=== PATIENT | male | born 2005 | race Caucasian/White ===

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

== ENCOUNTER 2024-08-19 19:28 | Emergency (ER) | payer BC, SELFPAY ==
--- OUTSIDE RECORDS SUMMARY | 2024-08-19 19:30 | XMS_ITS | Clinical Summary ---
Author Organization [facility] Address [address] [place] [address] Care Team Providers Care Inventory Associate Name Role Phone Darvin Grajeda MD Primary Car e Provider Source Comments You are receiving this document as you are listed as the primary care provider,follow-up provider, or the patient has been referred to you for consultation.This is in compliance with the Medicare and[facility] EHR Incentive Program,which states Providers who transition their patient to another setting of careor provider of care or refers their patient to another provider of care shouldprovide summary care record for each transition of care or referral. INVOLTA Allergies Active Allergy Reactions Criticality Noted Date Comments [place] (Diagnostic) Other, see comments 016 Almonds food. behavioural Blue Dyes (Parenteral) Other, see comments 08/16/2014 Behavior Egg-Derived Products Other, see comments 2014 anger Beef-Derived Drug Products Other, see comments 08/16/2014 behavior Mustard Other, see comments 08/16/2014 behavior Medications Medication Sig Dispensed Refills Start Date End Date Status Continuous Blood Gluc Sensor (DEXCOM G6 SENSOR) MISC U UTD FOR CONTINUOUS GLUCOSE MONITORING. CHANGE Q 10 DAYS 3 03/20/2019 Active Continuous Blood Gluc Transmit (DEXCOM G6 TRANSMITTER) MISC U UTD FOR CONTINUOUS GLUCOSE MONITORING. CHANGE Q 90 DAYS 3 03/20/2019 Active GLUCAGON EMERGENCY 1 MG Kit 03/14/2019 Active ACCU-CHEK GUIDE test strip TEST 8 TIMES D 11 03/18/2019 Active LANTUS SOLOSTAR 100 UNIT/ML pen INJECT 13 UNITS SUBCUTANEOUSLY D OR UTD 11 03/17/2019 Active HUMALOG KWIKPEN 100 UNIT/ML injection penIndications:Ty pe 1 Diabetes Mellitus 90 units per day via insulin pump Indications: Insulin-Dependent Diabetes 11 03/17/2019 Active TRUEPLUS PEN NEEDLES 32G X 4 MM 03/14/2019 Active ACCU-CHEK FASTCLIX lancets TEST 8 TIMES D 11 03/17/2019 Acti ve triamcinolone (KENALOG) 0.1 % lotion Apply topically two times a day. 60 mL 11 03/31/2019 Active guanFACINE 2 MG TB24 24 hour release tablet Take 2 mg by mouth daily. 11/22/2020 Active Insulin Aspart FlexPen 100 UNIT/ML SOPN INJECT 110 UNITS SUBCUTANEOUS EVERY DAY FOR CARB COVERAGE AND CORRECTION 03/30/2023 Active sertraline (ZOLOFT) 50 MG tabletIndications :Anxiety disorder, unspecified type (HRC),Social anxiety disorder (HRC),Oppositiona l defiant disorder TAKE 2 TABLETS(100 MG) BY MOUTH DAILY 180 Tablet 3 06/28/2023 Active cyclobenzaprine (FLEXERIL) 10 MG tablet Take 1 Tablet (10 mg) by mouth three times a day as needed for Muscle Spasms for up to 180 doses. 30 Tablet 5 06/04/2024 Active Active Problems Problem Noted Date Diagnosed Date Lumbar pain 06/12/2024 Pain in both lower extremities 06/12/2024 Dermatitis 04/26/2023 Overview (04/26/2023): Overview: Created by Conversion Type 1 diabetes mellitus without complication Screening for eye condition 04/16/2015 Attention deficit hyperactiv ity disorder, combined type, moderate 11/09/2014 Overview (05/11/2016): Patient takes Methylphenidate HCl 10 mg 1 tab twice a day . Qty dispensed 60 monthly. Should be seen every 6 months for follow up. 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 Overview (04/04/2017): unspecified anxiety disorder Social anxiety disorder 11/09/2014 Separation anxiety disorder 11/09/2014 Oppositional defiant disorder 11/09/2014 Encounters Date Type Department Care Team Description 07/08/2024 Telephone [facility] [address] [place] [address] Darvin Grajeda MD QUESTIONS, GENERAL 07/07/2024 Telephone Physical Therapy at [address] [phone] Will Robertson, PT Other 07/07/2024 Telephone Physical Therapy at [address] [phone] Mark Workman, PT No Show 07/03/2024 1:00 PM ERGONOMIC SPECIALIST Ancillary Procedure MRI at [address] [address] Darvin Grajeda MD 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) 06/25/2024 Telephone Physical Therapy at [address] [address] Mark Workman, PT No Show 06/23/2024 Telephone Physical Therapy at [address] [phone] Irina Lewis, [employer] No Show 06/20/2024 1:30 PM ERGONOMIC SPECIALIST Therapy Physical Therapy at [address] [phone] Will Robertson, PT Lumbar pain (Primary Dx); Pain in both lower extremities 06/20/2024 Telephone [facility] [address] [place] [address] Darvin Grajeda MD REFERRAL REQUEST 06/20/2024 Telephone Physical Therapy at [address] [phone] Will Robertson, PT Post Visit Follow Up Phone Call 06/18/2024 10:30 AM ERGONOMIC SPECIALIST Therapy Physical Therapy at [address] [phone] Mark Workman, PT Lumbar pain (Primary Dx); Pain in both lower extremities 06/12/2024 11:00 AM CDT Therapy Physical Therapy at [facility] Orthopedic [facility] [address] [place] [address] Will Robertson, PT Lumbar pain (Primary Dx); Pain in both lower extremities 06/04/2024 1:45 PM CDT Office Visit [facility] [address] [place] [address] Darvin Grajeda MD 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) (Primary Dx) from Last 3 Months Immunizations Name Administration Dates Next Due Meningococcal ACWY-TT (Menquadfi) 05/08/2022 Bexsero (Meningococcal Group B Vaccine) 02/27/2023 DTaP 03/07/2010, 9,02/07/2006,05/05,03/10/2005,01/13/2005 [id number] (Pediarix) 12/03/2008,04/14,03/10/2005,01/13 Flu Vac (3+ yrs) 07/28/2005,05/26/2005 Flu Vac Preserv Free (3+yrs) 07/28/2005,05/26/20 05 [id number] 07/05/2009 HepA Adult (19+ yrs) 03/07/2010,12/03/2008 HepB Ped/Adol (0-18 yrs) 12/03/2008,04/14,03/10/2005,01/13 Hib (ActHIB) 02/07/2006,03/10/2005,01/13/2005 Hib (PedvaxHIB) 02/07/2006,03/10/2005,01/13/2005 IPV (Polio) 12/03/2008, 5,03/10/2005,01/13 Influenza IIV4 (Quadrivalent ) 0.5mL (18758) 07/05/2009 MCV4 (Menactra) 03/01/2016 MCV4 Menveo 2m.+ (two vial) 03/01/2016 MMR 03/29/2010,11/01/2005 PCV13 (Prevnar) 11/01/2005, 5,03/10/2005,01/13 Pfizer Monovalent 12+ Purple Top 04/11/2021,07 Pneumococcal 7, PED 11/01/2005, 5,03/10/2005,01/13 Tdap 03/01/2016 Varicella 03/29/2010,11/01/2005 Family History Medical History Relation Name Comments Glaucoma Maternal Grandfather age 55 Amblyopia/Strabismus Negative Family History Blindness Negative Family History Relation Name Status Comments Maternal Grandfather Social History Tobacco Use Types Packs/Day Years Used Date Smoking Tobacco: Never Smokeless Tobacco: Never Tobacco Cessation:Counseling Given: Not Answered Alcohol Use Standard Drinks/Week Comments No 0 (1 standard drink = 0.6 oz pur e alcohol) PHQ-2 Answer Date Recorded PHQ-2 Score 2 06/04/2024 Sex and Gender Information Value Date Recorded Sex Assigned at Not on file Gender Identity Not on file Sexual Orientation Not on file Last Filed Vital Signs Vital Sign Reading Time Taken Comments Blood Pressure 115/67 06/04/2024 1:41 PM CDT Pulse 67 06/04/2024 1:41 PM CDT Temperature 36.9 C (98.5 F) 09/20/2021 9:48 AM ERGONOMIC SPECIALIST Respiratory Rate 22 03/13/2019 1:04 PM CDT Oxygen Saturation 99% 07/19/2016 10:10 AM ERGONOMIC SPECIALIST Inhaled Oxygen Concentration - - Weight 70.3 kg (155 lb) 06/04/2024 1:41 PM CDT Height 165.1 cm (5' 5) 09/13/2021 9:46 AM ERGONOMIC SPECIALIST Body Mass Index - - Plan of Treatment Health Maintenance Due Date Last Done Comments Diabetes: Eye Exam 2004 Diabetes: Foot Exam 2004 Diabetes: Urine Microalbumin 2004 Hep C Screening (Preventive Services) 2004 Pneumococcal (1 - PPSV23 or PCV20) 2010 11/01/2005, 11/01/2005, 05/05/2005, Additional history exists HPV Vaccine (1 - Male 3-dose series) 11/01/2019 HIV Screening (Preventive Services) 2020 Adult Preventive Visit 2022 9, 02/26/2017, 03/01/2016 COVID-19 Vaccine (3 2023-2 5 season) 2024 04/11/2021, 03/11/2021 Influenza (#1) 2024 07/05/2009, 07/13, 07/28/2005, Additional history exists Diabetes: HGBA1C 09/05/2024 03/05/2024, 09/03/2020 Diabetes: Creatinine 03/05/2025 03/05/2024, 04/26/2023, 03/13/2019 Diabetes: Lipid Panel 09/03/2025 09/03/2020 DTaP/Tdap/Td (7 - Tdap) 03/01/2026 03/01/20, 03/07/2010, 12/03/2008, Additional history exists Zoster/Shingles (1 of 2) 2054 Hib Completed 02/07/2006, 01/12, 03/10/2005, Additional history exists HepB Completed 12/03/2008, 11/12, 05/05/2005, Additional history exists IPV (Polio) Completed 12/03/2008, 11/12, 05/05/2005, Additional history exists HepA Completed 03/07/2010, 12/03/2008 Varicella Completed 03/29/2010, 11/01/2005 MCV4 Completed 05/08/2022, 02/11, 03/01/2016 Procedures Procedure Name Priority Date/Time Associated Diagnosis Comments MR LUMBAR SPINE WO IV CONT Routine 07/03/2024 1:04 PM ERGONOMIC SPECIALIST 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) BASIC METABOLIC PANEL Routine 03/05/2024 8:55 AM CDT Type 1 diabetes mellitus without complication (HRC) HGB A1C Routine 03/05/2024 8:55 AM CDT Type 1 diabetes mellitus without complication (HRC) LIPID PANEL & DIRECT LDL (IF NEEDED) Routine 09/03/2020 8:22 AM ERGONOMIC SPECIALIST Type I (juvenile type) diabetes mellitus without mention of complication, not stated as uncontrolled ([facility]) from Last 3 Months or Most Recently Relevant to Health Maintenance Results * MR Lumbar Spine WO IV Cont (07/03/2024 1:04 PM ERGONOMIC SPECIALIST) Anatomical Region Laterality Modality Spine, L-Spine, Skeletal, MSK Ma gnetic Resonance 07/03/2024 1:04 PM ERGONOMIC SPECIALIST Narrative 07/04/2024 9:00 AM ERGONOMIC SPECIALIST EXAM: MR LUMBAR SPINE WO IV CONT LOCATION: [facility] DATE: 07/03/2024 INDICATION: Back pain, worse after pt no improvement, Lumbago with sciatica, left side (HRC), Other chronic pain COMPARISON: None. TECHNIQUE: Routine Lumbar Spine MRI without IV contrast. FINDINGS: Nomenclature is based on 5 lumbar type vertebral bodies. Satisfactory lumbar vertebral body height and alignment. Interspace narrowing L5-S1. No marrow or ligamentous edema. Normal distal spinal cord and cauda equina with conus medullaris at L2. Mild leftward lumbar curve. No extraspinal abnormality. No pelvic mass, adenopathy or free fluid. T12-L1: Normal disc height and signal. No herniation. Normal facets. No spinal canal or neural foraminal stenosis. L1-L2: Normal disc height and signal. No herniation. Normal facets. No spinal canal or neural foraminal stenosis. L2-L3: Normal disc height and signal. No herniation. Normal facets. No spinal canal or neural foraminal stenosis. L3-L4: Normal disc height and signal. No herniation. Normal facets. No spinal canal or neural foraminal stenosis. L4-L5: Normal disc height and signal. No herniation. Normal facets. No spinal canal or neural foraminal stenosis. L5-S1: Mild to moderate loss of disc height. Annular bulging asymmetric to the right with a superimposed shallow broad-based right paracentral disc protrusion. Slight contact suggested traversing right S1 nerve root series 10 image 37 could correlate to right S1 radiculopathy. There is no spinal stenosis or lateral recess stenosis. Mild right foraminal narrowing inferiorly. No left neural foraminal stenosis. IMPRESSION: 1. Interspace narrowing at L5-S1 with a shallow morphology broad-based right paracentral disc protrusion. Slight contact without displacement suggested traversing right S1 nerve root series 10 image 37 could correlate to right S1 radiculopathy. Mild right L5-S1 foraminal compromise inferiorly. No additional spinal stenosis or foraminal narrowing. Satisfactory lumbar height and alignment overall. Procedure Note Josemanuel Em MD - 07/04/2024 EXAM: MR LUMBAR SPINE WO IV CONT LOCATION: [facility] DATE: 07/03/2024 INDICATION: Back pain, worse after pt no improvement, Lumbago withsciatica, left side (HRC), Other chronic pain COMPARISON: None. TECHNIQUE: Routine Lumbar Spine MRI without IV contrast. FINDINGS: Nomenclature is based on 5 lumbar type vertebral bodies. Satisfactorylumbar vertebral body height and alignment. Interspace narrowing L5-S1. Nomarrow or ligamentous edema. Normal distal spinal cord and cauda equinawith conus medullaris at L2. Mild leftward lumbar curve. No extraspinalabnormality. No pelvic mass, adenopathy or free fluid. T12-L1: Normal disc height and signal. No herniation. Normal facets. Nospinal canal or neural foraminal stenosis. L1-L2: Normal disc height and signal. No herniation. Normal facets. Nospinal canal or neural foraminal stenosis. L2-L3: Normal disc height and signal. No herniation. Normal facets. Nospinal canal or neural foraminal stenosis. L3-L4: Normal disc height and signal. No herniation. Normal facets. Nospinal canal or neural foraminal stenosis. L4-L5: Normal disc height and signal. No herniation. Normal facets. Nospinal canal or neural foraminal stenosis. L5-S1: Mild to moderate loss of disc height. Annular bulging asymmetric tothe right with a superimposed shallow broad-based right paracentral discprotrusion. Slight contact suggested traversing right S1 nerve root [id number] image 37 could correlate to right S1 radiculopathy. There is no spinalstenosis or lateral recess stenosis. Mild right foraminal narrowinginferiorly. No left neural foraminal stenosis. IMPRESSION: 1. Interspace narrowing at L5-S1 with a shallow morphology broad-basedright paracentral disc protrusion. Slight contact without displacementsuggested traversing right S1 nerve root series 10 image 37 couldcorrelate to right S1 radiculopathy. Mild right L5-S1 foraminal compromiseinferiorly. No additional spinal stenosis or foraminal narrowing.Satisfactory lumbar height and alignment overall. Darvin Grajeda MD RAD MRI * (ABNORMAL) BMP (03/05/2024 8:55 AM CDT) Sodium 141 136 - 145 mmol/L 03/05/2024 11:48 AM [facility] Potassium 3.5 3.5 - 5.1 mmol/L 03/05/2024 11:48 AM [facility] Chloride 106 98 - 109 mmol/L 03/05/2024 11:48 AM T [facility] CO2 23 20 - 29 mmol/L 03/05/2024 11:48 AM T [facility] Anion Gap 12 6 - 16 mmol/L 03/05/2024 11:48 AM T [facility] Calcium 9.4 8.4 - 10.4 mg/dL 03/05/2024 11:48 AM T [facility] BUN 12 7 - 26 mg/dL 03/05/2024 11:48 AM T [facility] Creatinine 0.67(L) 0.73 - 1.18 mg/dL 03/05/2024 11:48 AM T [facility] Glucose 233(H) 70 - 100 mg/dL 03/05/2024 11:48 AM [facility] Comment:The given reference range is for the fasting state. Non-fasting reference range for glucose is 70 - 180 mg/dL. GFR, Estimated >60 >60 mL/min/1. 73m2 03/05/2024 11:48 AM T [facility] Hours Fasting 0.0 8 - 12 Hours 03/05/2024 11:48 AM [facility] Blood Venipuncture / Unknown 03/05/2024 8:55 AM CDT 03/05/2024 8:55 AM CDT Darvin Grajeda MD LAB_ 1 [facility] [address] [address], [facility] [[email or web address]] * (ABNORMAL) Hgb A1C (03/05/2024 8:55 AM CDT) Hemoglobin A1C 7.0(H) <=5.6 % 03/05/2024 12:10 PM CDT [facility] Estimated Average Glucose (Calc) 154 < 117 mg/dL 03/05/2024 12:10 PM CDT [facility] Comment:Estimated average gl ucose (eAG) converts A1c into glucose units (mg/dL) and estimates average glucose over the past approximately 3 months. The eAG reference interval (<117 mg/dL) corresponds to an A1c of <5.7%. Blood Venipuncture / Unknown 03/05/2024 8:55 AM CDT 03/05/2024 8:55 AM CDT Narrative [facility] - 03/05/2024 12:10 PM CDT For patients not previously diagnosed with diabetes: 5.7-6.4%: Increased risk for diabetes 6.5% and greater: Diagnostic for diabetes For patients diagnosed with diabetes: <8.0%: Goal of therapy for ages 18-75 Clinicians may recommend a higher or lower goal for specific individuals. Darvin Grajeda MD LAB_ 1 [facility] [address] [address], [facility] [[email or web address]] * (ABNORMAL) Lipid Panel and Direct LDL(If Needed) (09/03/2020 8:22 AM ERGONOMIC SPECIALIST) Cholesterol 235(H) 0 - 199 mg/dL 09/03/2020 9:00 AM [facility] Triglyceride 162(H) <=149 mg/dL 09/03/2020 9:00 AM [facility] HDL Cholesterol 41 >=40 mg/dL 9:00 AM [facility] LDL, Calculated 162(H) <130 mg/dL 9:00 AM [facility] Non HDL Chol, Calculated 194(H) <=144 mg/dL 09/03/2020 9:00 AM [facility] Cholesterol/HDL Ratio 5.7 09/03/2020 9:00 AM [facility] Hours Fasting 14 09/03/2020 9:00 AM [facility] Blood Lab OP Venipunct ure / Unknown 09/03/2020 8:22 AM ERGONOMIC SPECIALIST 09/03/2020 8:26 AM ERGONOMIC SPECIALIST Darvin Grajeda MD LAB_ [address] [address], [facility] [[email or web address]] [phone] from Last 3 Months or Most Recently Relevant to Health Maintenance Care Teams Inventory Associate Relationship Specialty Start Date End Date Darvin Grajeda MD [address] [place] [address] PCP - General Family Practice 06/15/14
--- OUTSIDE RECORDS SUMMARY | 2024-08-19 19:30 | XMS_ITS | Encounter Summary ---
Author Organization [facility] Address [address] [place] [address] Care Team Providers Care Instructional Leader Name Role Phone Darvin Grajeda MD Primary Car e Provider Reason for Visit * Reason Comments Other Encounter Details Date Type Department Care Team (Late st Contact Info) Description 07/07/2024 Telephone Physical Therapy at [facility] [address] [place] [address] Will Robertson, PT [address] [place] [address] Other Social History Tobacco Use Types Packs/Day Years Used Date Smoking Tobacco: Never Smokeless Tobacco: Never Alcohol Use Standard Drinks/Week Comments No 0 (1 standard drink = 0.6 oz pur e alcohol) PHQ-2 Answer Date Recorded PHQ-2 Score 2 06/04/2024 Sex and Gender Information Value Date Recorded Sex Assigned at Not on file Gender Identity Not on file Sexual Orientation Not on file documented as of this encounter Nursing Notes * Will Robertson, PT - 07/07/2024 1:52 PM CST PT spoke with pt and his mother about the PT POC. PT's mother states that pt had a major medical event recently. PT reviewed pt's recent lumbar imaging and instructed pt and his mother that pt can still benefit from physical therapy. PT instructed pt and pt's mother that pt can schedule a few weeks more of PT appointments. Pt/his mother will call the appointment scheduling line to schedule more appointments once they know their schedule. Will Robertson, PT 07/07/2024, 1:53 PM [facility] SPECIALIST documented in this encounter Plan of Treatment Not on file documented as of this encounter Visit Diagnoses Not on filedocumented in this encounter Care Teams Instructional Leader Relationship Specialty Start Date End Date Darvin Grajeda MD [address] [place] [address] PCP - General Family Practice 06/15/14 documented as of this encounter
--- OUTSIDE RECORDS SUMMARY | 2024-08-19 19:30 | XMS_ITS | Encounter Summary ---
Author Organization [facility] Address [address] [place] [address] Care Team Providers Care Director Of Industrial Relations Name Role Phone Darvin Grajeda MD Primary Car e Provider Reason for Visit * Reason Comments QUESTIONS, GENERAL Encounter Details Date Type Department Care Team (Late st Contact Info) Description 07/08/2024 Telephone [facility] [address] [place], [place] [phone] Darvin Grajeda MD [address] [employer] [place], [place] [phone] QUESTIONS, GENERAL Social History Tobacco Use Types Packs/Day Years [...] as of this encounter Nursing Notes * Andreina Rees - 07/08/2024 12:04 PM CST Other Questions/Concerns/FYI Is this a symptom? No What is your question or concern? Pt mom stated, the received the results of the MRI and would like to know if provider want him to go to PT or have an injection. Also, the PT provider Will stated, that he is will to continue working with him. Have you recently been seen for this? Yes: 1.5 month ago Preferred communication method: MyChart Is there anything else I can help you with today? No [employer] documented in this encounter Plan of Treatment Not on file documented as of this encounter Visit Diagnoses Not on filedocumented in this encounter Care Teams Director Of Industrial Relations Relationship Specialty Start Date End Date Darvin Grajeda MD [address] [place] [address] PCP - General Family Practice 06/15/14 documented as of this encounter
--- OUTSIDE RECORDS SUMMARY | 2024-08-19 19:30 | XMS_ITS | Encounter Summary ---
Author Organization [facility] Address [address] [place] [address] Care Team Providers Care Counter Clerk Name Role Phone Darvin Grajeda MD Primary Car e Provider Reason for Visit * Reason Comments No Show Encounter Details Date Type Department Care Team (Late st Contact Info) Description 07/07/2024 Telephone Physical Therapy at [facility] [address] [place] [address] Mark Workman, PT [address] [place] [address] No Show Social History Tobacco Use Types Packs/Day Years [...] as of this encounter Nursing Notes * Mark Workman, PT - 07/07/2024 12:26 PM CST I???m reaching out because you missed your 3rd therapy appointment without notifying us. I am discontinuing your therapy at this time. Communication Outcome: Message sent via online account [employer] documented in this encounter Plan of Treatment Not on file documented as of this encounter Visit Diagnoses Not on filedocumented in this encounter Care Teams Counter Clerk Relationship Specialty Start Date End Date Darvin Grajeda MD [address] [place] [address] PCP - General Family Practice 06/15/14 documented as of this encounter
--- OUTSIDE RECORDS SUMMARY | 2024-08-19 19:30 | XMS_ITS | Clinical Summary ---
Author Organization [facility] Address [place], [place] [address] Care Team Providers Care Appeals Representative Name Role Phone Clinic, No Pcp Or Primary Care Provider Unavaila ble Allergies Active Allergy Reactions Criticality Noted Date Comments [place] Other - Describe In Comment Field Unknown 07/19/2016 Almonds food. behavioral Beef Derived (Bovine) Other - Describe In Comment Field Unknown 08/16/2014 behavior Blue Dye Other - Describe In Comment Field Unknown 08/16/2014 Behavior Egg Derived Other - Describe In Comment Field Unknown 08/16/2014 anger Mustard Seed Other - Describe In Comment Field Unknown 08/16/2014 behavior Medications Dexcom G6 Sensor for continuous blood glucose monitor (CGM) CHANGE SENSOR EVERY 10 DAYS 3 Active Dexcom G6 Transmitter for continuous blood glucose monitor (CGM) CHANGE TRANSMITTER EVERY 90 DAYS 3 Active insulin aspart, U-100, (NOVOLOG FLEXPEN) 100 unit/mL (3 mL) pen INJECT 110 UNITS 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 Active cyclobenzaprine (FLEXERIL) 10 mg tabletIndicatio ns:Lumbar back pain Take 1 Tablet (10 mg) by mouth three times daily. 20 Tablet 4 Active methylPREDNISol one (MEDROL DOSEPAK) 4 mg tabletIndicatio ns:Lumbar back pain Take by mouth as instructed per packaging. 21 Tablet 4 Active Active Problems No known active problems Encounters Date Type Department Care Team Description 07/08/2024 1:30 PM POLICE SERGEANT Office Visit [facility] [address] [place] [address] Iveth Prince [facility] Visit 07/08/2024 Travel from Last 3 Months Family History Medical History Relation Name Comments Unknown Father Unknown Mother Relation Name Status Comments Father Mother Social History Tobacco Use Types Packs/Day Years Used Date Smoking Tobacco: Never Smokeless Tobacco: Never Tobacco Cessation:Counseling Given: Not Answered Alcohol Use Standard Drinks/Week Comments Never 0 (1 standard drink = 0.6 oz pur e alcohol) Sex and Gender Information Value Date Recorded Sex Assigned at Not on file Legal Sex Male 9:24 PM CDT Gender Identity Not on file Sexual Orientation Not on file Obstetrics History Last Filed Vital Signs Vital Sign Reading Time Taken Comments Blood Pressure 126/84 05/14/2024 10:02 PM CDT Pulse 80 05/14/2024 10:02 PM CDT Temperature 36.6 C (97.8 F) 05/14/2024 10:02 PM CDT Respiratory Rate 16 05/14/2024 10:02 PM CDT Oxygen Saturation 97% 05/14/2024 10:02 PM CDT Inhaled Oxygen Concentration - - Weight 68 kg (150 lb) 05/14/2024 10:02 PM CDT Height 167.6 cm (5' 6) 05/14/2024 10:02 PM CDT Body Mass Index 24.21 05/14/2024 10:02 PM CDT Plan of Treatment Upcoming Encounters Date Type Department Care Team (Late st Contact Info) Description 09/01/2024 1:00 PM POLICE SERGEANT Telemedicine [facility] [address] [address] Yris Gray, PhD, LP [address] [place] [address] Health Maintenance Due Date Last Done Comments Well Child Check for age 3-20 10/03/2007 Tdap 11/01/2015 Depression screening for age 12+ 2016 HIV for age 15-65 11/01/2019 HPV series for age 9-26 (1 - Male 3-dose series) 11/01/2019 BMI (ht and wt on same day) for age 18+ 2022 Hepatitis C screening for ag e 18-79 2022 COVID-19 vaccine series ( season) 2024 04/11/2021, 03/11/2021 Influenza for age 9-49 04/13/2024 Meningococcal series for age 11-21 Aged Out No longer eligible b ased on patient's age to complete this topic Pneumococcal series for age 6-49 Aged Out No longer eligible b ased on patient's age to complete this topic Insurance [facility] [place] [address] [facility] REFERRAL Member Subscriber Plan / Payer (Ef fective 2024-Present) Name:Osei Hartman Member ID:[id number] Relation to Subscriber:Self Name:Osei Hartman Subscriber ID:[id number] Payer ID:Not on file Group ID:Not on file Type:Not on file Address: FOR [employer] OF NON-[place]-ITS Care Teams Appeals Representative Relationship Specialty Start Date End Date Clinic, No Pcp Or . PCP - General 05/14/24
--- OUTSIDE RECORDS SUMMARY | 2024-08-19 19:31 | XMS_ITS | Encounter Summary ---
Author Organization [facility] Address [address] [place] [address] Care Team Providers Care Portfolio Accountant Name Role Phone Darvin Grajeda MD Primary Car e Provider Encounter Details Date Type Department Care Team (Late st Contact Info) Description 06/17/2014 Correspondence None No Primary/Referring, Phy EQUIPMENT SPEED WINDER TICKET Social History Tobacco Use Types Packs/Day Years [...] Time COVID19 07/06/2020 07/06/2020 07/27/2020 3:17 AM EXCEPTIONAL CHILDREN TEACHER R/O COVID19 06/13/2021 06/13/2021 06/13/2021 9:27 PM CDT documented as of this encounter Care Teams Portfolio Accountant Relationship Specialty Start Date End Date Darvin Grajeda MD [address] [place] [address] PCP - General Family Practice 06/15/14 documented as of this encounter
--- OUTSIDE RECORDS SUMMARY | 2024-08-19 19:31 | XMS_ITS | Encounter Summary ---
Author Organization [facility] Address [address] [place] [address] Care Team Providers Care Assembler Corncob Pipes Name Role Phone Darvin Grajeda MD Primary Car e Provider Encounter Details Date Type Department Care Team (Late st Contact Info) Description 02/07/2013 Scanned History External to Transferred Record, Provider [facility] Social History Tobacco Use Types Packs/Day Years Used Date Smoking Tobacco: Never Assessed Sex and Gender Information Value Date Recorded Sex Assigned at Not on file Gender Identity Not on file Sexual Orientation Not on file documented as of this encounter Progress Notes * Transferred Record, Provider - 02/07/2013 12:00 AM CDT GING JEWELER documented in this encounter Plan of Treatment Not on file documented as of this encounter Visit Diagnoses Not on filedocumented in this encounter Additional Health Concerns Infection Onset Date Last Indicated Resolved Time COVID19 07/06/2020 07/06/2020 07/27/2020 3:17 AM MANAGING JEWELER R/O COVID19 06/13/2021 06/13/2021 06/13/2021 9:27 PM CDT documented as of this encounter Care Teams Assembler Corncob Pipes Relationship Specialty Start Date End Date Darvin Grajeda MD [address] [facility] [place] [address] PCP - General Family Practice 06/15/14 documented as of this encounter
--- OUTSIDE RECORDS SUMMARY | 2024-08-19 19:31 | XMS_ITS | Encounter Summary ---
Author Organization [facility] Address [address] [place] [address] Care Team Providers Care Offset Press Operator Helper Name Role Phone Darvin Grajeda MD Primary Car e Provider Encounter Details Date Type Department Care Team (Late st Contact Info) Description 02/26/2017 Correspondence [facility] [address] [place] [address] Darvin Grajeda MD [address] [place] [address] LIBERTAD HYMAN AUTH AND MEDICAL RECORD Social History Tobacco Use Types Packs/Day Years [...] Time COVID19 07/06/2020 07/06/2020 07/27/2020 3:17 AM AIRLINE LOUNGE RECEPTIONIST R/O COVID19 06/13/2021 06/13/2021 06/13/2021 9:27 PM CDT documented as of this encounter Care Teams Offset Press Operator Helper Relationship Specialty Start Date End Date Darvin Grajeda MD [address] [place] [address] PCP - General Family Practice 06/15/14 documented as of this encounter
--- OUTSIDE RECORDS SUMMARY | 2024-08-19 19:31 | XMS_ITS ---
Author Organization [facility] Address [address] [place] [address] Care Team Providers Care Gasoline Service Attendant Name Role Phone Unavailable Unavailable Unavailable Surgery Details Not on file Complications Check Surgery Details section. Procedure Estimated Blood Loss Check Surgery Details section. Procedure Findings Check Surgery Details section. Procedure Specimens Taken Check Surgery Details section.
--- OUTSIDE RECORDS SUMMARY | 2024-08-19 19:31 | XMS_ITS | Encounter Summary ---
Author Organization [facility] Address [address] [place] [address] Care Team Providers Care Chief Procurement Officer Name Role Phone Darvin Grajeda MD Primary Car e Provider Encounter Details Date Type Department Care Team (Late st Contact Info) Description 06/17/2014 Correspondence None No Primary/Referring, Phy DME INSTRUCTION DELIVERY Social History Tobacco Use Types Packs/Day Years [...] Time COVID19 07/06/2020 07/06/2020 07/27/2020 3:17 AM MENTAL RETARDATION AIDE R/O COVID19 06/13/2021 06/13/2021 06/13/2021 9:27 PM CDT documented as of this encounter Care Teams Chief Procurement Officer Relationship Specialty Start Date End Date Darvin Grajeda MD [address] [place] [address] PCP - General Family Practice 06/15/14 documented as of this encounter
--- OUTSIDE RECORDS SUMMARY | 2024-08-19 19:31 | XMS_ITS | Referral Summary ---
Author Organization [facility] Address [address] [place] [address] Care Team Providers Care Chief Program Officer Name Role Phone Unavailable Primary Care Provider Unavailabl e Source Comments Patient records contain information from all sites at [facility]. For routine questions regarding patient records, call [phone] during business hours, M-F 8:00 AM - 5:00 PM Central Time. Record requests for emergency care only can be directed to [phone] at any time.[facility] Allergies No known active allergies Medications glucagon 1 mg injection 03/14/2019 Active Active Problems No known active problems Social History Tobacco Use Types Packs/Day Years Used Date Smoking Tobacco: Never Smokeless Tobacco: Never Tobacco Cessation:Counseling Given: Not Answered Nutrition Answer Date Recorded Nutrition: EVOO Fat Source Unknown 10/18 Nutrition: Servings of Fruits/Vegetables per Day Not on file 10/19/2023 Dental Answer Date Recorded Dental: Regular Dentist Unknown 10/19/19 Sex and Gender Information Value Date Recorded Sex Assigned at Not on file Legal Sex Male 11:46 AM BACK JOINER Gender Identity Not on file Sexual Orientation Not on file Last Filed Vital Signs Vital Sign Reading Time Taken Comments Blood Pressure 108/74 10/24/2023 11:13 AM CDT Pulse 64 10/24/2023 11:13 AM CDT Temperature 36.4 C (97.5 F) 10/24/2023 11:13 AM CDT Respiratory Rate 18 10/24/2023 11:1 3 AM CDT Oxygen Saturation - - Inhaled Oxygen Concentration - - Weight 78.8 kg (173 lb 11.6 oz) 024 11:13 AM CDT Height 169 cm (5' 6.54) 10/24/2023 11: 13 AM CDT Body Mass Index 27.59 10/24/2023 11:13 AM CDT Body Mass Index Percentile 90.18% 10/23 11:13 AM CDT Growth Chart: CDC (Boys, 2-2 0 Years) Plan of Treatment Not on file
--- OUTSIDE RECORDS SUMMARY | 2024-08-19 19:31 | XMS_ITS | Encounter Summary ---
Author Organization [facility] Address [address] [place] [address] Care Team Providers Care Turning Sander Operator Name Role Phone Darvin Grajeda MD Primary Car e Provider Encounter Details Date Type Department Care Team (Late st Contact Info) Description 04/28/2014 Scanned History External to [facility], Provider [facility] Social History Tobacco Use Types Packs/Day Years [...] Time COVID19 07/06/2020 07/06/2020 07/27/2020 3:17 AM MANAGER OUTREACH R/O COVID19 06/13/2021 06/13/2021 06/13/2021 9:27 PM CDT documented as of this encounter Care Teams Turning Sander Operator Relationship Specialty Start Date End Date Darvin Grajeda MD [address] [place] [address] PCP - General Family Practice 06/15/14 documented as of this encounter
--- OUTSIDE RECORDS SUMMARY | 2024-08-19 19:31 | XMS_ITS | Encounter Summary ---
Author Organization [facility] Address [address] [place] [address] Care Team Providers Care Almond Cutting Machine Tender Name Role Phone Darvin Grajeda MD Primary Car e Provider Encounter Details Date Type Department Care Team (Late st Contact Info) Description 06/17/2014 Correspondence [facility] [address] [place] [address] Darvin Grajeda MD [address] [place] [address] DME INSTRUCTION DELIVERY Social History Tobacco Use [...] Time COVID19 07/06/2020 07/06/2020 07/27/2020 3:17 AM MOBILE UI/UX DESIGNER R/O COVID19 06/13/2021 06/13/2021 06/13/2021 9:27 PM CDT documented as of this encounter Care Teams Almond Cutting Machine Tender Relationship Specialty Start Date End Date Darvin Grajeda MD [address] [place] [address] PCP - General Family Practice 06/15/14 documented as of this encounter
--- OUTSIDE RECORDS SUMMARY | 2024-08-19 19:31 | XMS_ITS | Encounter Summary ---
[facility] Organization [facility] Address [address] [place] [address] Care Team Providers Care Placement Assistant Name Role Phone Darvin Grajeda MD Primary Car e Provider Encounter Details Date Type Department Care Team (Late st Contact Info) Description 04/22/2016 Correspondence External to External, [place] [address] AUTH TO ADMINISTER RX AT SCHOOL Social History Tobacco Use Types Packs/Day Years [...] Time COVID19 07/06/2020 07/06/2020 07/27/2020 3:17 AM SHEET METAL WORKER MAINTENANCE R/O COVID19 06/13/2021 06/13/2021 06/13/2021 9:27 PM CDT documented as of this encounter Care Teams Placement Assistant Relationship Specialty Start Date End Date Darvin Grajeda MD [address] [place] [address] PCP - General Family Practice 06/15/14 documented as of this encounter
--- OUTSIDE RECORDS SUMMARY | 2024-08-19 19:31 | XMS_ITS | Encounter Summary ---
Author Organization [facility] Address [address] [place] [address] Care Team Providers Care Vacuum Spindle Sander Name Role Phone Darvin Grajeda MD Primary Car e Provider Encounter Details Date Type Department Care Team (Late st Contact Info) Description 06/17/2014 Correspondence [facility] [address] [place] [address] Darvin Grajeda MD [address] [place] [address] EQUIPMENT DRIP PUMPER TICKET Social History Tobacco Use Types Packs/Day [...] Time COVID19 07/06/2020 07/06/2020 07/27/2020 3:17 AM NOZZLE TENDER R/O COVID19 06/13/2021 06/13/2021 06/13/2021 9:27 PM CDT documented as of this encounter Care Teams Vacuum Spindle Sander Relationship Specialty Start Date End Date Darvin Grajeda MD [address] [place] [address] PCP - General Family Practice 06/15/14 documented as of this encounter
--- OUTSIDE RECORDS SUMMARY | 2024-08-19 19:31 | XMS_ITS | Encounter Summary ---
Author [facility] Address [address] [place] [address] Care Team Providers Care Galley Stripper Name Role Phone Darvin Grajeda MD Primary Car e Provider Encounter Details Date Type Department Care Team (Late st Contact Info) Description 09/10/2013 [facility], Provider IMM RECORD Social History Tobacco Use Types Packs/Day Years Used Date Smoking Tobacco: Never Assessed Sex and Gender Information Value Date Recorded Sex Assigned at Not on file Gender Identity Not on file Sexual Orientation Not on file documented as of this encounter Progress Notes * [facility], Provider - 09/10/2013 12:00 AM CST SPECIALIST documented in this encounter Plan of Treatment Not on file documented as of this encounter Visit Diagnoses Not on filedocumented in this encounter Additional Health Concerns Infection Onset Date Last Indicated Resolved Time COVID19 07/06/2020 07/06/2020 07/27/2020 3:17 AM RISK SPECIALIST R/O COVID19 06/13/2021 06/13/2021 06/13/2021 9:27 PM CDT documented as of this encounter Care Teams Galley Stripper Relationship Specialty Start Date End Date Darvin Grajeda MD [address] [place] [address] PCP - General Family Practice 06/15/14 documented as of this encounter
--- OUTSIDE RECORDS SUMMARY | 2024-08-19 19:31 | XMS_ITS | Encounter Summary ---
Author Organization [facility] Address [address] [place] [address] Care Team Providers Care Medical Illustrator Name Role Phone Darvin Grajeda MD Primary Car e Provider Encounter Details Date Type Department Care Team (Late st Contact Info) Description 07/16/2015 Correspondence [facility] [address] [place] [address] Darvin Grajeda MD [address] [place] [address] SCHOOL ADMINISTRATON OF MEDICATION Social History Tobacco Use Types Packs/Day Years [...] Time COVID19 07/06/2020 07/06/2020 07/27/2020 3:17 AM RENAL MEDICINE PHYSICIAN R/O COVID19 06/13/2021 06/13/2021 06/13/2021 9:27 PM CDT documented as of this encounter Care Teams Medical Illustrator Relationship Specialty Start Date End Date Darvin Grajeda MD [address] [place] [address] PCP - General Family Practice 06/15/14 documented as of this encounter
--- OUTSIDE RECORDS SUMMARY | 2024-08-19 19:31 | XMS_ITS | Clinical Summary ---
Author Organization [facility] Address [address] [place] [address] Care Team Providers Care Car Parker Name Role Phone Unavailable Primary Care Provider Unavailabl e Source Comments Patient records contain information from all sites at [facility]. For routine questions regarding patient records, call [phone] during business hours, M-F 8:00 AM - 5:00 PM Central Time. 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 CLERK Gender Identity Not on file Sexual Orientation [...] (Boys, 2-2 0 Years) Plan of Treatment Health Maintenance Due Date Last Done Comments HIV Screening 2004 Hearing Screening during Well Child Visit 2004 Hepatitis C Screening 2004 TB Screening during Well Child Visit 2004 1 week Well Child Check-Up 2004 1 month Well Child Check-Up 2004 2 month Well Child Check-Up 2004 4 month Well Child Check-Up 01/31/2005 6 month Well Child Check-Up 04/02/2005 9 month Well Child Check-Up 07/03/2005 12 month Well Child Check-Up 10/03/2005 15 month Well Child Check-Up 12/31/2005 18 month Well Child Check-Up 04/02/2006 2 year Well Child Check-Up 10/03/2006 30 month Well Child Check-Up 04/02/2007 3 year Well Child Check-Up 10/03/2007 Well Child Check-Up Completed in Past Year 10/03/2007 4 year Well Child Check-Up 10/03/2008 5 year Well Child Check-Up 10/03/2009 6 year Well Child Check-Up 10/03/2010 7 year Well Child Check-Up 10/03/2011 8 year Well Child Check-Up 10/03/2012 9 year Well Child Check-Up 10/03/2013 10 year Well Child Check-Up 10/03/2014 11 year Well Child Check-Up 10/03/2015 12 year Well Child Check-Up 10/03/2016 13 year Well Child Check-Up 10/03/2017 14 year Well Child Check-Up 10/03/2018 Vision Screening during Well Child Visit 2018 15 year Well Child Check-Up 10/03/2019 HPV Vaccines (1 - Male 3-dose series) 11/01/2019 16 year Well Child Check-Up 10/03/2020 17 year Well Child Check-Up 10/03/2021 18 year Well Child Check-Up 10/03/2022 Depression Screening (Annual PHQ-2) 08/13/2023 19 year Well Child Check-Up 10/03/2023 Well Child Check-Up (WC) 10/03/2023 COVID-19 Vaccine ( season) 2024 04/11/2021, 03/11/2021 Influenza Vaccine (#1) 2024 9, 07/28/2005, 05/26/2005 DTaP,Tdap,and Td Vaccines (7 - Td or Tdap) 03/01/2026 03/01/2016, 03/07/2010, 12/03/2008, Additional history exists Pneumococcal vaccine (0-49 years) Aged Out 11/01/2005, 05/05/2005, 03/10/2005, Additional history exists No longer eligible based on patient's age to complete this topic Hepatitis B Vaccines Completed 12/03/2008, 05/05/2005, 03/10/2005, Additional history exists IPV Vaccines Completed 12/03/2008, 11/12, 05/05/2005, Additional history exists MMR Vaccines Completed 03/29/2010, 11/01/2005 Varicella Vaccines Completed 03/29/2010, 11/01/2005 Meningococcal Vaccine Completed 05/08/2022, 016
[2024-08-19 19:37] VITALS: BP 146/72; PULSE 129; RESP 22; TEMP 40.7; O2SAT 98; BMI 23.4
--- NOTE | 2024-08-19 19:52 | ED.GENADULT ---
HPI - General Adult General Time Seen by Provider: 19:52 Date Seen: 08/19/24 Chief complaint: Fever Stated complaint: Sore throat, runny nose, numb legs Time Seen by Provider: 08/19/24 19:52 Source: patient and RN notes reviewed Mode of arrival: ambulatory Limitations: no limitations History of Present Illness HPI narrative: This 18-year-old male with type 1 diabetes and insulin pump is coming in with illness symptoms starting today. He has a cough, headache. He states his legs feel numb. He woke up this morning. He does not go to school, does not know how he would of potentially picked up any virus. We discussed that they are very prevalent in the environment right now. He has not had any flu shot or COVID vaccine. No abdominal symptoms, no vomiting or diarrhea. He has not taken anything for his temperature. His sugar is at 333 on his insulin pump now. Related Data Home Medications ?Medication ?Instructions ?Recorded ?Confirmed blood-glucose sensor (Dexcom G6 #3 ea 05/08/22 02/27/23 Sensor device) blood-glucose transmitter (Dexcom #1 ea 05/08/22 02/27/23 G6 Transmitter device) insulin lispro 100 unit/mL ml subcut 05/08/22 03/17/24 subcutaneous pen Previous Rx's ?Medication ?Instructions ?Recorded glucagon HCl 1 mg solution for 1 mg subcut Q20M PRN hypoglycemia 02/27/23 injection (Glucagon (HCl) #1 ea Emergency Kit) Allergies Allergy/AdvReac Type Severity Reaction Status Date / Time No Known Drug Allergies Allergy Verified 08/19/24 19:45 Review of Systems Status of ROS: Reports: 6 or more systems reviewed and unremarkable except as noted in History and below [facility] Medical History Obesity (BMI 30.0-34.9) ?E66.9 - Obesity, unspecified (ICD-10) Hypercholesteremia ?E78.00 - Pure hypercholesterolemia, unspecified (ICD-10) Cerumen impaction ?H61.20 - Impacted cerumen, unspecified ear (ICD-10) Diabetes type 1, controlled ?E10.9 - Type 1 diabetes mellitus without complications (ICD-10) Social History Smoking Status: Never smoker Exam Const: Vital Signs, click to edit/add: Vital Signs - 24 hr 08/19/24 19:37 08/19/24 22:05 Temperature 105.3 F H 99.9 F H Pulse Rate [Right Pulse Oximeter] 129 H Respiratory Rate 22 Blood Pressure [Le ft Upper Arm] 146/72 H Pulse Oximetry 98 Oxygen Delivery Me thod Room Air This 18-year-old male has his foot of his sweatshirt up over his head. On removing this, he has symmetrical facial function, speech is normal. Pupils equal round reactive, sclera clear. Neck supple, no adenopathy. Lungs are clear, good air entry, no wheeze or crackles. He is able to sit up easily. CV fast but regular, no murmur, normal S1-S2, no S3-S4. Abdomen is soft, nontender, nondistended, no organomegaly. Pump is on his left back, no surrounding erythema. Moving arms legs. He was ambulatory into the ED of his own accord. Feels normal light touch sensation. Documenting provider has reviewed patient's vital signs: yes Course Course ED Course: Nursing staff appropriately did the triple viral nasal swab which is pending. Will establish an IV, going to given 1000 mg of Tylenol for fever control, L of IV fluids. Need to get baseline labs on him, make sure is not developing diabetic ketoacidosis. Need to consider potential bacterial infectious etiologies as well. We will see where his labs come back, see if we need to consider other imaging. His history certainly seems to be consistent with potentially influenza or COVID, even RSV. We are seeing all 3 of these in the environment right now. Reevaluation(s) Time of Reevaluation #1: 20:51 Reevaluation #1: Have reviewed with patient he has influenza A. They would like to get Tamiflu out of [facility] and start this [facility] which I think is an excellent idea. It is possible that patient may still go home if labs are reassuring. I think treating him with Tamiflu is very important as it will help to diminish the severity of this illness for him and he is well within guidelines. Will have his temperature rechecked after fluids are in and Tylenol is been on board, will likely load with some ibuprofen as well if needed. Time of Reevaluation #2: 22:03 Reevaluation #2: Patient's recheck temp is 99.9? F. Will discharge to home at this point. Labs are reassuring. Patient is feeling better and does want to go home. Vital Signs Vital signs: Initial Vital Signs Temperature 105.3 F H 08/19/24 19:37 Temperature Source Temporal Artery Scan 08/19/24 19:37 Pulse Rate 129 H 08/19/24 19:37 Pulse Rhythm Regular 08/19/24 19:37 Pulse Strength 3+ Normal 08/19/24 19:37 Respiratory Rate 22 08/19/24 19:37 Blood Pressure 146/72 H 08/19/24 19:37 Blood Pressure Mean 96 08/19/24 19:37 Blood Pressure Position Sitting 08/19/24 19:37 Pulse Oximetry 98 08/19/24 19:37 Oxygen Delivery Method Room Air 08/19/24 19:37 Vital Signs Temperature 105.3 F H 08/19/24 19:37 Pulse Rate 129 H 08/19/24 19:37 Respiratory Rate 22 08/19/24 19:37 Blood Pressure 146/72 H 08/19/24 19:37 Pulse Oximetry 98 08/19/24 19:37 Oxygen Delivery Method Room Air 08/19/24 19:37 Temperature 99.9 F H 08/19/24 22:05 Pulse Rate 129 H 08/19/24 19:37 Respiratory Rate 22 08/19/24 19:37 Blood Pressure 146/72 H 08/19/24 19:37 Pulse Oximetry 98 08/19/24 19:37 Oxygen Delivery Method Room Air 08/19/24 19:37 Medications Administered Medications: Discontinued Medications Generic Name Dose Route Start Last Admin Trade Name Leonidasq PRN Reason Stop Dose Admin Acetaminophen 1,000 mg 08/19/24 19:58 08/19/24 20:28 Acetaminophen 500 Mg Tablet PO 08/19/24 19:59 1,000 mg ONCE ONE Administration Sodium Chloride 1,000 mls @ 500 mls/hr 08/19/24 19:59 08/19/24 20:28 0.9 % Sodium Chloride 1000 Ml IV 08/19/24 21:58 500 mls/hr .Q2H ALIE Administration Medical Decision Making Lab Data Lab results reviewed: Yes I reviewed the patient's lab results Labs: Lab Results 08/19/24 08/19/24 Range/Units 19:46 20:30 WBC 7.20 (4.50-11.00) K/uL RBC 4.93 (4.30-5.90) m/uL Hgb 14.8 (13.5-17.5) gm/dL Hct 43.4 (37.0-53.0) % MCV 88 (80-100) fL MCH 30 (26-34) pg MCHC 34 (32-36) gm/dL RDW Coeff of Daphne 11.8 (11.5-15.5) % Plt Count 204 (140-440) K/uL Neut % (Auto) 81.2 H (42.0-72.0) % Lymph % (Auto) 5.8 L (20-44) % Coryell % (Auto) 12.6 H (0.0-11.0) % Eos % (Auto) 0.0 (0.0-7.0) % Baso % (Auto) 0.1 (0.0-3.0) % Neut # (Auto) 5.80 (1.7-7.0) K/uL Lymph # (Auto) 0.40 L (0.90-2.90) K/uL Coryell # (Auto) 0.90 (0.00-0.90) K/UL Eos # (Auto) 0.00 (0.00-0.50) K/uL Baso # (Auto) 0.01 (0.00-0.30) K/uL Abs Immat Gran (auto) 0.02 (0.00-0.30) K/uL Imm/Tot Granulo (auto) 0.3 % VBG pH 7.391 (7.32-7.43) VBG pCO2 41 (40-50) mmHG VBG pO2 40.0 (25-47) mmHG VBG HCO3 25 (21-28) mmol/L Sodium 134 L (135-149) mmol/L Potassium 3.6 (3.6-5.1) mmol/L Chloride 100 (96-114) mmol/L Carbon Dioxide 23 (20-32) mmol/L Anion Gap 11 (7-15) mEq/L BUN 13 (5-24) mg/dL Creatinine 0.8 (0.6-1.2) mg/dL Estimated Creat Clear 134.02 Estimated GFR 131 ml/min Glucose 247 H (60-115) mg/dL Lactate 2.4 H (0.5-1.9) mmol/L Calcium 9.2 (8.7-10.8) mg/dL Total Bilirubin 0.8 (0.1-1.5) mg/dL AST 18 (12-35) U/L ALT 14 (4-50) U/L Alkaline Phosphatase 68 (65-260) U/L C-Reactive Protein 1.2 H (0.5-1.0) mg/dL Total Protein 7.5 (6.0-8.3) g/dL Albumin 4.7 (3.3-5.0) g/dL SARS-CoV-2 (PCR) Negative SARS-CoV-2 (Negative) Influenza Type A (PCR) POSITIVE PCR FLU A A (Negative) Influenza Type B (PCR) Negative PCR FLU B (Negative) RSV (PCR) Negative PCR RSV (Negative) ECG Data Attestation: I personally reviewed and interpreted this ECG as follows: (Sinus tachycardia, 119 beats per minute. No evidence of any ischemia or infarct.) Prior ECG tracings: not available for review Critical Care Time Critical Care Time Critical Care Time: No Discharge Plan Discharge Clinical Impression: Influenza A, Type 1 diabetes Patient Disposition: Home, Self-Care Condition: Stable Instructions: Influenza (ED) Additional Instructions: Continue to take Tamiflu 75 mg twice daily, next dose due tomorrow morning. We are very likely going to need to alternate Tylenol and ibuprofen for fever and symptom control. Follow bottle directions for dosing. He may need to alternate these every 3-4 hours. Hopefully getting on the Tamiflu will help minimize fevers from this illness. It is very important you drink adequate fluids. Your appetite maybe diminished during this illness but should improve as you feel better. He will have to watch your sugars. If there are concerning highs or lows, you may need to seek re-evaluation. If you feel you are not improving over the next week, have concerns for worsening or have concerns with your diabetes through this illness, do recommend re-evaluation. You need to quarantine for the duration of the Tamiflu or potentially longer if still running fevers after the duration of the Tamiflu. Activity Level: Activity as Tolerated Prescriptions: No Action (DME) Dexcom G6 Transmitter Device See Rx Instructions .ROUTE .MEDSUPPLY Qty: 1 Patient Comments: CHANGE EVERY 90 DAYS Rx Instructions: As directed (DME) Dexcom G6 Sensor Device See Rx Instructions .ROUTE .MEDSUPPLY Qty: 3 Patient Comments: CHANGE EVERY 10 DAYS Rx Instructions: As directed insulin lispro 100 unit/mL insulin pen subcut Patient Comments: FOR USE IN INSULIN PUMP DAILY USING UP TO 110 UNITS PER DAY glucagon HCl [Glucagon (HCl) Emergency Kit] 1 mg recon soln 1 mg subcut Q20M PRN (Reason: hypoglycemia) Qty: 1 5RF Rx Instructions: until target blood sugar attained Follow Up/Referrals: Dany Hennessy MD [Primary Care Provider] - Stand Alone Forms: MyHealth Info Instructions
[2024-08-19] MEDS: 0.9 % SODIUM CHLORIDE 1000 ml 1,000 ML 500 ML IV (20:28)
[2024-08-19] MEDS: ACETAMINOPHEN 500 MG TABLET 1000 MG PO (20:28)
[2024-08-19 20:32] LABS: PCR FLU A POSITIVE PCR FLU A (Negative); PCR FLU B Negative PCR FLU B (Negative); PCR RSV Negative PCR RSV (Negative); SARS PCR* Negative SARS-CoV-2 (Negative)
--- OUTSIDE RECORDS SUMMARY | 2024-08-19 20:50 | XMS_ITS | Referral Summary ---
Author Organization [facility] Address [address] [place] [address] Care Team Providers Care Bolt Loader Name Role Phone Unavailable Primary Care Provider Unavailabl e Source Comments Patient records contain information from all sites at [facility]. For routine questions regarding patient records, call [phone] during business hours, M-F 8:00 AM - 5:00 PM Central Time. 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
--- OUTSIDE RECORDS SUMMARY | 2024-08-19 20:50 | XMS_ITS | Encounter Summary ---
Author Organization [facility] Address [address] [place] [address] Care Team Providers Care General Intern Name Role Phone Darvin Grajeda MD Primary Car e Provider Encounter Details Date Type Department Care Team (Late st Contact Info) Description 04/28/2014 Scanned History External to [facility], Provider [facility] Social History Tobacco Use Types [...] Time COVID19 07/06/2020 07/06/2020 07/27/2020 3:17 AM PRETZEL COOKER R/O COVID19 06/13/2021 06/13/2021 06/13/2021 9:27 PM CDT documented as of this encounter Care Teams General Intern Relationship Specialty Start Date End Date Darvin Grajeda MD [address] [place] [address] PCP - General Family Practice 06/15/14 documented as of this encounter
--- OUTSIDE RECORDS SUMMARY | 2024-08-19 20:50 | XMS_ITS | Clinical Summary ---
Author Organization [facility] Address [place], [place] [address] Care Team Providers Care Card Hanger Name Role Phone Clinic, No Pcp Or Primary Care Provider Unavaila ble Allergies Active Allergy Reactions Criticality Noted Date Comments [place] Other - Describe In Comment Field Unknown [...] Department Care Team Description 07/08/2024 1:30 PM VICE SQUAD POLICE OFFICER Office Visit [facility] [address] [place] [address] Iveth Prince [facility] Visit 07/08/2024 Travel from [...] st Contact Info) Description 09/01/2024 1:00 PM [employer] POLICE OFFICER Telemedicine [facility] [address] [address] Yris Gray, PhD, LP [address] [place] [address] Health Maintenance Due Date Last Done Comments [...] patient's age to complete this topic Insurance [facility] [place] [id number] [facility] REFERRAL Member Subscriber Plan / Payer (Ef fective 2024-Present) Name:Osei Hartman Member ID:[id number] Relation to Subscriber:Self Name:Osei Hartman Subscriber ID:[id number] Payer ID:Not on file Group ID:Not on file Type:Not on file Address: FOR [employer] BLUE CROSS OF NON-MA-ITS Care Teams Card Hanger Relationship Specialty Start Date End Date Clinic, No Pcp Or . PCP - General 05/14/24
--- OUTSIDE RECORDS SUMMARY | 2024-08-19 20:50 | XMS_ITS | Encounter Summary ---
Author Organization [facility] Address [address] [place] [address] Care Team Providers Care Customer Care Team Coach Name Role Phone Darvin Grajeda MD Primary Car e Provider Reason for Visit * Reason Comments Other Encounter Details Date Type Department Care Team (Late st Contact Info) Description 07/07/2024 Telephone Physical Therapy at [facility] [address] [place] [address] Will Robertson, PT [address] [place] [address] Other Social History Tobacco Use [...] schedule. Will Robertson, PT 07/07/2024, 1:53 PM INATOR documented in this encounter Plan of Treatment Not on file documented as of this encounter Visit Diagnoses Not on filedocumented in this encounter Care Teams Customer Care Team Coach Relationship Specialty Start Date End Date Darvin Grajeda MD [address] [place] [address] PCP - General Family Practice 06/15/14 documented as of this encounter
--- OUTSIDE RECORDS SUMMARY | 2024-08-19 20:50 | XMS_ITS | Encounter Summary ---
Author Organization [facility] Address [address] [place] [address] Care Team Providers Care Manager Agency Name Role Phone Darvin Grajeda MD Primary Car e Provider Encounter Details Date Type Department Care Team (Late st Contact Info) Description 09/10/2013 [facility] IMM RECORD Social History Tobacco Use Types Packs/Day Years Used Date Smoking Tobacco: Never Assessed Sex and Gender Information Value Date Recorded Sex Assigned at Not on file Gender Identity Not on file Sexual Orientation Not on file documented as of this encounter Progress Notes * [facility], Provider - 09/10/2013 12:00 AM CST ANGE SPECIALIST documented in this encounter Plan of Treatment Not on file documented as of this encounter Visit Diagnoses Not on filedocumented in this encounter Additional Health Concerns Infection Onset Date Last Indicated Resolved Time COVID19 07/06/2020 07/06/2020 07/27/2020 3:17 AM EXCHANGE SPECIALIST R/O COVID19 06/13/2021 06/13/2021 06/13/2021 9:27 PM CDT documented as of this encounter Care Teams Manager Agency Relationship Specialty Start Date End Date Darvin Grajeda MD [address] [facility] [address] PCP - General Family Practice 06/15/14 documented as of this encounter
--- OUTSIDE RECORDS SUMMARY | 2024-08-19 20:50 | XMS_ITS | Encounter Summary ---
Author Organization [facility] Address [address] [place] [address] Care Team Providers Care Public Welfare Director Name Role Phone Darvin Grajeda MD Primary Car e Provider Encounter Details Date Type Department Care Team (Late st Contact Info) Description 06/17/2014 Correspondence None No Primary/Referring, Phy EQUIPMENT TRANSITIONAL CARE NURSE TICKET Social History Tobacco Use Types Packs/Day [...] COVID19 07/06/2020 07/06/2020 07/27/2020 3:17 AM ONLINE MERCHANDISING MANAGER R/O COVID19 06/13/2021 06/13/2021 06/13/2021 9:27 PM CDT documented as of this encounter Care Teams Public Welfare Director Relationship Specialty Start Date End Date Darvin Grajeda MD [address] [place] [address] PCP - General Family Practice 06/15/14 documented as of this encounter
--- OUTSIDE RECORDS SUMMARY | 2024-08-19 20:50 | XMS_ITS | Clinical Summary ---
[facility] Address [address] [place] [address] Care Team Providers Care Ironworker Wire Fence Erector Name Role Phone Darvin Grajeda MD Primary Car e Provider Source Comments You are receiving this document as you are listed as the primary care provider,follow-up provider, or the patient has been referred to you for consultation.This is in compliance with the Medicare and[facility] EHR Incentive Program,which states Providers who transition their patient to another setting of careor provider of care or refers their patient to another provider of care shouldprovide summary care record for each transition of care or referral. PingMe Allergies Active Allergy Reactions Criticality Noted Date Comments [place] (Diagnostic) Other, see comments 016 Almonds food. [...] Type Department Care Team Description 07/08/2024 Telephone [facility] [address] [place] [address] Darvin Grajeda MD QUESTIONS, GENERAL 07/07/2024 Telephone Physical Therapy at [address] [phone] Will Robertson, PT Other 07/07/2024 Telephone Physical Therapy at [address] [phone] Mark Workman, PT No Show 07/03/2024 1:00 PM HOB MACHINE OPERATOR Ancillary Procedure MRI at [address] [address] Darvin Grajeda MD 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) 06/25/2024 Telephone Physical Therapy at [address] [address] Mark Workman, PT No Show 06/23/2024 Telephone Physical Therapy at [address] [address] Irina Lewis, GOVERNMENT SALES MANAGER No Show 06/20/2024 1:30 PM HOB MACHINE OPERATOR Therapy Physical Therapy at [address] [address] Will Robertson, PT Lumbar pain (Primary Dx); Pain in both lower extremities 06/20/2024 Telephone [facility] [address] [place] [address] Darvin Grajeda MD REFERRAL REQUEST 06/20/2024 Telephone Physical Therapy at [address] [address] Will Robertson, PT Post Visit Follow Up Phone Call 06/18/2024 10:30 AM HOB MACHINE OPERATOR Therapy Physical Therapy at [address] [phone] Mark Workman, PT Lumbar pain (Primary Dx); Pain in both lower extremities 06/12/2024 11:00 AM CDT Therapy Physical Therapy at [facility] [address] [place] [address] Will Robertson, PT Lumbar pain (Primary Dx); Pain in both lower extremities 06/04/2024 1:45 PM CDT Office Visit [facility] [address] [place] [address] Darvin Grajeda MD 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) (Primary Dx) from Last 3 Months Immunizations Name Administration Dates Next Due Meningococcal ACWY-TT (Menquadfi) 05/08/2022 Bexsero (Meningococcal Group B Vaccine) 02/27/2023 DTaP 03/07/2010, 9,02/07/2006,05/05,03/10/2005,01/13/2005 [id number] (Pediarix) 12/03/2008,04/14,03/10/2005,01/13 Flu Vac (3+ yrs) 07/28/2005,05/26/2005 Flu Vac Preserv Free (3+yrs) 07/28/2005,05/26/20 05 [id number] 07/05/2009 HepA Adult (19+ yrs) 03/07/2010,12/03/2008 HepB Ped/Adol (0-18 yrs) 12/03/2008,04/14,03/10/2005,01/13 Hib (ActHIB) 02/07/2006,03/10/2005,01/13/2005 Hib (PedvaxHIB) 02/07/2006,03/10/2005,01/13/2005 IPV (Polio) 12/03/2008, 5,03/10/2005,01/13 Influenza IIV4 (Quadrivalent ) 0.5mL (58599) 07/05/2009 MCV4 (Menactra) 03/01/2016 MCV4 Menveo 2m.+ [...] 36.9 C (98.5 F) 09/20/2021 9:48 AM HOB MACHINE OPERATOR Respiratory Rate 22 03/13/2019 1:04 PM CDT Oxygen Saturation 99% 07/19/2016 10:10 AM HOB MACHINE OPERATOR Inhaled Oxygen Concentration - - Weight 70.3 kg (155 lb) 06/04/2024 1:41 PM CDT Height 165.1 cm (5' 5) 09/13/2021 9:46 AM HOB MACHINE OPERATOR Body Mass Index - - Plan of [...] WO IV CONT Routine 07/03/2024 1:04 PM HOB MACHINE OPERATOR 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) BASIC METABOLIC PANEL Routine 03/05/2024 8:55 AM CDT Type 1 diabetes mellitus without complication (HRC) HGB A1C Routine 03/05/2024 8:55 AM CDT Type 1 diabetes mellitus without complication (HRC) LIPID PANEL & DIRECT LDL (IF NEEDED) Routine 09/03/2020 8:22 AM HOB MACHINE OPERATOR Type I (juvenile type) diabetes mellitus without mention of complication, not stated as uncontrolled ([facility]) from Last 3 Months or Most Recently Relevant to Health Maintenance Results * MR Lumbar Spine WO IV Cont (07/03/2024 1:04 PM HOB MACHINE OPERATOR) Anatomical Region Laterality Modality Spine, L-Spine, Skeletal, MSK Ma gnetic Resonance 07/03/2024 1:04 PM HOB MACHINE OPERATOR Narrative 07/04/2024 9:00 AM HOB MACHINE OPERATOR EXAM: MR LUMBAR SPINE WO IV CONT LOCATION: [facility] DATE: 07/03/2024 INDICATION: Back pain, worse after [...] MR LUMBAR SPINE WO IV CONT LOCATION: [facility] DATE: 07/03/2024 INDICATION: Back pain, worse after [...] contact suggested traversing right S1 nerve root [id number] image 37 could correlate to right S1 [...] - 145 mmol/L 03/05/2024 11:48 AM [facility] Potassium 3.5 3.5 - 5.1 mmol/L 03/05/2024 11:48 AM [facility] Chloride 106 98 - 109 mmol/L 03/05/2024 11:48 AM [facility] CO2 23 20 - 29 mmol/L 03/05/2024 11:48 AM T [facility] Anion Gap 12 6 - 16 mmol/L 03/05/2024 11:48 AM [facility] Calcium 9.4 8.4 - 10.4 mg/dL 03/05/2024 11:48 AM T [facility] BUN 12 7 - 26 mg/dL 03/05/2024 11:48 AM [facility] Creatinine 0.67(L) 0.73 - 1.18 mg/dL 03/05/2024 11:48 AM T [facility] Glucose 233(H) 70 - 100 mg/dL 03/05/2024 11:48 AM [facility] Comment:The given reference range is for the fasting state. Non-fasting reference range for glucose is 70 - 180 mg/dL. GFR, Estimated >60 >60 mL/min/1. 73m2 03/05/2024 11:48 AM [facility] Hours Fasting 0.0 8 - 12 Hours 03/05/2024 11:48 AM [facility] Blood Venipuncture / Unknown 03/05/2024 8:55 AM CDT 03/05/2024 8:55 AM CDT Darvin Grajeda MD LAB_ 1 [facility] [address] [address], [facility] * (ABNORMAL) Hgb A1C (03/05/2024 8:55 AM CDT) Hemoglobin A1C 7.0(H) <=5.6 % 03/05/2024 12:10 PM CDT [facility] Estimated Average Glucose (Calc) 154 < 117 mg/dL 03/05/2024 12:10 PM CDT [facility] Comment:Estimated average gl ucose (eAG) converts A1c into glucose units (mg/dL) and estimates average glucose over the past approximately 3 months. The eAG reference interval (<117 mg/dL) corresponds to an A1c of <5.7%. Blood Venipuncture / Unknown 03/05/2024 8:55 AM CDT 03/05/2024 8:55 AM CDT Narrative [facility] - 03/05/2024 12:10 PM CDT For patients not previously diagnosed with diabetes: 5.7-6.4%: Increased risk for diabetes 6.5% and greater: Diagnostic for diabetes For patients diagnosed with diabetes: <8.0%: Goal of therapy for ages 18-75 Clinicians may recommend a higher or lower goal for specific individuals. Darvin Grajeda MD LAB_ 1 [facility] [address] [address], [facility] * (ABNORMAL) Lipid Panel and Direct LDL(If Needed) (09/03/2020 8:22 AM HOB MACHINE OPERATOR) Cholesterol 235(H) 0 - 199 mg/dL 09/03/2020 9:00 AM [facility] Triglyceride 162(H) <=149 mg/dL 09/03/2020 9:00 AM [facility] HDL Cholesterol 41 >=40 mg/dL 9:00 AM [facility] LDL, Calculated 162(H) <130 mg/dL 9:00 AM [facility] Non HDL Chol, Calculated 194(H) <=144 mg/dL 09/03/2020 9:00 AM [facility] Cholesterol/HDL Ratio 5.7 09/03/2020 9:00 AM [facility] Hours Fasting 14 09/03/2020 9:00 AM [facility] Blood Lab OP Venipunct ure / Unknown 09/03/2020 8:22 AM HOB MACHINE OPERATOR 09/03/2020 8:26 AM HOB MACHINE OPERATOR Darvin Grajeda MD LAB_ [address] [address], [facility] [phone] from Last 3 Months or Most Recently Relevant to Health Maintenance Care Teams Ironworker Wire Fence Erector Relationship Specialty Start Date End Date Darvin Grajeda MD [address] [place] [address] PCP - General Family Practice 06/15/14
--- OUTSIDE RECORDS SUMMARY | 2024-08-19 20:50 | XMS_ITS | Encounter Summary ---
Author Organization [facility] Address [address] [place] [address] Care Team Providers Care Parts Department Supervisor Name Role Phone Darvin Grajeda MD Primary [...] COVID19 07/06/2020 07/06/2020 07/27/2020 3:17 AM HEAD LINEMAN R/O COVID19 06/13/2021 06/13/2021 06/13/2021 9:27 PM CDT documented as of this encounter Care Teams Parts Department Supervisor Relationship Specialty Start Date End Date Darvin Grajeda MD [address] [place] [address] PCP - General Family Practice 06/15/14 documented as of this encounter
--- OUTSIDE RECORDS SUMMARY | 2024-08-19 20:50 | XMS_ITS | Encounter Summary ---
Author Organization [facility] Address [address] [place] [address] Care Team Providers Care Sidewalk Repairer Name Role Phone Darvin Grajeda MD Primary Car e Provider Reason for Visit * Reason Comments No Show Encounter Details Date Type Department Care Team (Late st Contact Info) Description 07/07/2024 Telephone Physical Therapy at [facility] [address] [place] [address] Mark Workman, PT [address] [place] [address] No Show Social History Tobacco [...] Communication Outcome: Message sent via online account RVISOR COLOR PASTE MIXING documented in this encounter Plan of Treatment Not on file documented as of this encounter Visit Diagnoses Not on filedocumented in this encounter Care Teams Sidewalk Repairer Relationship Specialty Start Date End Date Darvin Grajeda MD [address] [place] [address] PCP - General Family Practice 06/15/14 documented as of this encounter
--- OUTSIDE RECORDS SUMMARY | 2024-08-19 20:50 | XMS_ITS | Encounter Summary ---
Author Organization [facility] Address [address] [place] [address] Care Team Providers Care Airport Operations Officer Name Role Phone Darvin Grajeda MD Primary Car e Provider Reason for Visit * Reason Comments QUESTIONS, GENERAL Encounter Details Date Type Department Care Team (Late st Contact Info) Description 07/08/2024 Telephone [facility] [address] [place], [place] [phone] Darvin Grajeda MD [address] [place], [place] [phone] QUESTIONS, GENERAL Social History Tobacco Use Types [...] I can help you with today? No GRAPHER documented in this encounter Plan of Treatment Not on file documented as of this encounter Visit Diagnoses Not on filedocumented in this encounter Care Teams Airport Operations Officer Relationship Specialty Start Date End Date Darvin Grajeda MD [address] [place] [address] PCP - General Family Practice 06/15/14 documented as of this encounter
--- OUTSIDE RECORDS SUMMARY | 2024-08-19 20:50 | XMS_ITS | Clinical Summary ---
Author Organization [facility] Address [address] [place] [address] Care Team Providers Care Pouncer Machine Name Role Phone Unavailable Primary Care Provider Unavailabl e Source Comments Patient records contain information from all sites at [facility]. For routine questions regarding patient records, call [phone] during business hours, M-F 8:00 AM - 5:00 PM Central Time. Record requests for emergency care only can be directed to [phone] at any time.[facility] Allergies No known active allergies Medications [...] on file Legal Sex Male 11:46 AM IRONING PLEATER Gender Identity Not on file Sexual Orientation [...]
--- OUTSIDE RECORDS SUMMARY | 2024-08-19 20:50 | XMS_ITS ---
Author Organization [facility] Address [address] [place] [address] Care Team Providers Care Turbine Attendant Name Role Phone Unavailable Unavailable Unavailable Surgery Details Not on file Complications Check Surgery Details section. Procedure Estimated Blood Loss Check Surgery Details section. Procedure Findings Check Surgery Details section. Procedure Specimens Taken Check Surgery Details section.
--- OUTSIDE RECORDS SUMMARY | 2024-08-19 20:50 | XMS_ITS | Encounter Summary ---
[facility] Organization [facility] Address [address] [place] [address] Care Team Providers Care Attendant Child Activity Name Role Phone Darvin Grajeda MD Primary Car e Provider Encounter Details Date Type Department Care Team (Late st Contact Info) Description 04/22/2016 Correspondence External to External, [place] [address] AUTH TO ADMINISTER RX AT SCHOOL Social [...] Time COVID19 07/06/2020 07/06/2020 07/27/2020 3:17 AM POCKETS AND PIECES NECKTIE OPERATOR R/O COVID19 06/13/2021 06/13/2021 06/13/2021 9:27 PM CDT documented as of this encounter Care Teams Attendant Child Activity Relationship Specialty Start Date End Date Darvin Grajeda MD [address] [place] [address] PCP - General Family Practice 06/15/14 documented as of this encounter
--- OUTSIDE RECORDS SUMMARY | 2024-08-19 20:50 | XMS_ITS | Encounter Summary ---
Author Organization [facility] Address [address] [place] [address] Care Team Providers Care Back End Engineer Name Role Phone Darvin Grajeda MD Primary Car e Provider Encounter Details Date Type Department Care Team (Late st Contact Info) Description 06/17/2014 Correspondence [facility] [address] [place] [address] Darvin Grajeda MD [address] [place] [address] DME INSTRUCTION DELIVERY Social History Tobacco Use [...] Time COVID19 07/06/2020 07/06/2020 07/27/2020 3:17 AM CYTOLOGY SUPERVISOR R/O COVID19 06/13/2021 06/13/2021 06/13/2021 9:27 PM CDT documented as of this encounter Care Teams Back End Engineer Relationship Specialty Start Date End Date Darvin Grajeda MD [address] [place] [facility] [place] [address] PCP - General Family Practice 06/15/14 documented as of this encounter
--- OUTSIDE RECORDS SUMMARY | 2024-08-19 20:50 | XMS_ITS | Encounter Summary ---
Author Organization [facility] Address [address] [place] [address] Care Team Providers Care Pipe Organ Technician Name Role Phone Darvin Grajeda MD Primary Car e Provider Encounter Details Date Type Department Care Team (Late st Contact Info) Description 02/07/2013 Scanned History External to Transferred Record, Provider [facility] Social History Tobacco Use Types Packs/Day Years Used Date Smoking Tobacco: Never Assessed Sex and Gender Information Value Date Recorded Sex Assigned at Not on file Gender Identity Not on file Sexual Orientation Not on file documented as of this encounter Progress Notes * Transferred Record, Provider - 02/07/2013 12:00 AM CDT KER TENDER documented in this encounter Plan of Treatment Not on file documented as of this encounter Visit Diagnoses Not on filedocumented in this encounter Additional Health Concerns Infection Onset Date Last Indicated Resolved Time COVID19 07/06/2020 07/06/2020 07/27/2020 3:17 AM STACKER TENDER R/O COVID19 06/13/2021 06/13/2021 06/13/2021 9:27 PM CDT documented as of this encounter Care Teams Pipe Organ Technician Relationship Specialty Start Date End Date Darvin Grajeda MD [address] [place] [address] PCP - General Family Practice 06/15/14 documented as of this encounter
--- OUTSIDE RECORDS SUMMARY | 2024-08-19 20:50 | XMS_ITS | Encounter Summary ---
Author Organization [facility] Address [address] [place] [address] Care Team Providers Care Type Soldering Machine Tender Name Role Phone Darvin Grajeda MD Primary Car e Provider Encounter Details Date Type Department Care Team (Late st Contact Info) Description 07/16/2015 Correspondence [facility] [address] [place] [address] Darvin Grajeda MD [address] [place] [address] SCHOOL ADMINISTRATON OF MEDICATION Social History Tobacco [...] Time COVID19 07/06/2020 07/06/2020 07/27/2020 3:17 AM CHILD WATCH ATTENDANT R/O COVID19 06/13/2021 06/13/2021 06/13/2021 9:27 PM CDT documented as of this encounter Care Teams Type Soldering Machine Tender Relationship Specialty Start Date End Date Darvin Grajeda MD [address] [place] [address] PCP - General Family Practice 06/15/14 documented as of this encounter
--- OUTSIDE RECORDS SUMMARY | 2024-08-19 20:50 | XMS_ITS | Encounter Summary ---
Author Organization [facility] Address [address] [place] [address] Care Team Providers Care Grooming Salon Manager Name Role Phone Darvin Grajeda MD Primary Car e Provider Encounter Details Date Type Department Care Team (Late st Contact Info) Description 02/26/2017 Correspondence [facility] [address] [place] [address] Darvin Grajeda MD [address] [place] [address] LIBERTAD HYMAN AUTH AND MEDICAL RECORD Social [...] Time COVID19 07/06/2020 07/06/2020 07/27/2020 3:17 AM LPN HOME HEALTH R/O COVID19 06/13/2021 06/13/2021 06/13/2021 9:27 PM CDT documented as of this encounter Care Teams Grooming Salon Manager Relationship Specialty Start Date End Date Darvin Grajeda MD [address] [place] [address] PCP - General Family Practice 06/15/14 documented as of this encounter
--- OUTSIDE RECORDS SUMMARY | 2024-08-19 20:50 | XMS_ITS | Encounter Summary ---
Author Organization [facility] Address [address] [place] [address] Care Team Providers Care Industrial Machine System Technician Name Role Phone Darvin Grajeda MD Primary Car e Provider Encounter Details Date Type Department Care Team (Late st Contact Info) Description 06/17/2014 Correspondence [facility] [address] [place] [address] Darvin Grajeda MD [address] [place] [address] EQUIPMENT DIRECTOR MARKET RESEARCH TICKET Social History Tobacco Use Types Packs/Day [...] Time COVID19 07/06/2020 07/06/2020 07/27/2020 3:17 AM INTERNAL COMMUNICATIONS SPECIALIST R/O COVID19 06/13/2021 06/13/2021 06/13/2021 9:27 PM CDT documented as of this encounter Care Teams Industrial Machine System Technician Relationship Specialty Start Date End Date Darvin Grajeda MD [address] [place] [address] PCP - General Family Practice 06/15/14 documented as of this encounter
[2024-08-19 20:51] LABS: HCO3 VBG 25 mmol/L (21-28); Lactate* 2.4 mmol/L (0.5-1.9); PCO2 VBG 41 mmHG (40-50); pH VBG 7.391 (7.32-7.43)
[2024-08-19 20:53] LABS: Basophils Absolute Auto 0.01 K/uL (0.00-0.30); Basophils Percent Auto 0.1 % (0.0-3.0); Hematocrit 43.4 % (37.0-53.0); Hemoglobin* 14.8 gm/dL (13.5-17.5); Immature Granulocytes Abs Auto 0.02 K/uL (0.00-0.30); Immature Granulocytes Pct Auto 0.3 %; Lymphocytes Percent Auto 5.8 % (20-44); Mean Corpuscular HGB Conc 34 gm/dL (32-36); Mean Corpuscular Hemoglobin 30 pg (26-34); Mean Corpuscular Volume 88 fL (80-100); Monocytes Percent Auto 12.6 % (0.0-11.0); Neutrophils Percent Auto 81.2 % (42.0-72.0); Platelet Count* 204 K/uL (140-440); RDW Coefficient of Variation % 11.8 % (11.5-15.5); Red Blood Count 4.93 m/uL (4.30-5.90)
[2024-08-19 20:54] LABS: Slide Review Reflex No
[2024-08-19 21:08] LABS: Albumin* 4.7 g/dL (3.3-5.0); Chloride* 100 mmol/L (96-114); Potassium* 3.6 mmol/L (3.6-5.1); Sodium* 134 mmol/L (135-149)
[2024-08-19 21:10] LABS: Creatinine* 0.8 mg/dL (0.6-1.2); Est. Creatinine Clearance* 134.02; Estimated Glomerular Filt Rate 131 ml/min
[2024-08-19 21:11] LABS: Alanine Aminotransferase* 14 U/L (4-50); Alkaline Phosphatase* 68 U/L (65-260); Anion Gap 11 mEq/L (7-15); Aspartate Amino Transferase* 18 U/L (12-35); Bilirubin Total* 0.8 mg/dL (0.1-1.5); Blood Urea Nitrogen* 13 mg/dL (5-24); Carbon Dioxide* 23 mmol/L (20-32); Glucose* 247 mg/dL (60-115); Total Protein* 7.5 g/dL (6.0-8.3)
[2024-08-19 21:12] LABS: Calcium* 9.2 mg/dL (8.7-10.8)
[2024-08-19 21:14] LABS: C Reactive Protein* 1.2 mg/dL (0.5-1.0)
[2024-08-19 22:05] VITALS: TEMP 37.7
[2024-08-19 22:11] VITALS: TEMP 37.7
[2024-08-19 22:13] VITALS: O2SAT 106
== END 2024-08-19 22:24 | disposition home or self-care (01) ==
PROVIDERS: Emergency Provider Family Medicine; PCP Family Medicine
DX: J09.X2 Influenza due to identified novel influenza A virus with other respiratory manifestations (principal); E10.9 Type 1 diabetes mellitus without complications
CPT/HCPCS: 36415; 80053; 82803; 83605; 85025; 86140; 87631; 93005; 94761; 99284; A9270; J7030

== ENCOUNTER 2024-08-24 16:12 | Emergency (ER) | payer BC, SELFPAY ==
[2024-08-24 16:18] VITALS: BP 100/67; PULSE 114; RESP 18; TEMP 36.9; O2SAT 97; BMI 22.6
--- OUTSIDE RECORDS SUMMARY | 2024-08-24 16:20 | XMS_ITS | Encounter Summary ---
Author Organization [facility] Address [address] [place] [address] Care Team Providers Care Car Pincher Name Role Phone Darvin Grajeda MD Primary Car e Provider Encounter Details Date Type Department Care Team (Late st Contact Info) Description 06/17/2014 Correspondence [facility] [address] [place] [address] Darvin Grajeda MD [address] [place] [address] EQUIPMENT LIFT SLAB OPERATOR TICKET Social History Tobacco Use Types Packs/Day [...] Time COVID19 07/06/2020 07/06/2020 07/27/2020 3:17 AM CASE SUPERVISOR R/O COVID19 06/13/2021 06/13/2021 06/13/2021 9:27 PM CDT documented as of this encounter Care Teams Car Pincher Relationship Specialty Start Date End Date Darvin Grajeda MD [address] [place] [address] PCP - General Family Practice 06/15/14 documented as of this encounter
--- OUTSIDE RECORDS SUMMARY | 2024-08-24 16:20 | XMS_ITS | Encounter Summary ---
Author Organization [facility] Address [address] [place] [address] Care Team Providers Care Regulatory Attorney Name Role Phone Darvin Grajeda MD Primary Car e Provider Encounter Details Date Type Department Care Team (Late st Contact Info) Description 09/10/2013 [facility], Provider IMM RECORD Social History Tobacco Use Types Packs/Day Years Used Date Smoking Tobacco: Never Assessed Sex and Gender Information Value Date Recorded Sex Assigned at Not on file Gender Identity Not on file Sexual Orientation Not on file documented as of this encounter Progress Notes * [facility], Provider - 09/10/2013 12:00 AM CST ING PERSONS INVESTIGATOR documented in this encounter Plan of Treatment Not on file documented as of this encounter Visit Diagnoses Not on filedocumented in this encounter Additional Health Concerns Infection Onset Date Last Indicated Resolved Time COVID19 07/06/2020 07/06/2020 07/27/2020 3:17 AM MISSING PERSONS INVESTIGATOR R/O COVID19 06/13/2021 06/13/2021 06/13/2021 9:27 PM CDT documented as of this encounter Care Teams Regulatory Attorney Relationship Specialty Start Date End Date Darvin Grajeda MD [address] [facility] [address] PCP - General Family Practice 06/15/14 documented as of this encounter
--- OUTSIDE RECORDS SUMMARY | 2024-08-24 16:20 | XMS_ITS | Encounter Summary ---
Author Organization [facility] Address [address] [place] [address] Care Team Providers Care Oversize Load Pilot Escort Name Role Phone Darvin Grajeda MD Primary Car e Provider Reason for Visit * Reason Comments QUESTIONS, GENERAL Encounter Details Date Type Department Care Team (Late st Contact Info) Description 07/08/2024 Telephone [facility] [address] [place], [place] [phone] Darvin Grajeda MD [address] [place], [place] [phone] QUESTIONS, GENERAL Social History Tobacco Use Types [...] I can help you with today? No SCIENCE INSTRUCTOR documented in this encounter Plan of Treatment Not on file documented as of this encounter Visit Diagnoses Not on filedocumented in this encounter Care Teams Oversize Load Pilot Escort Relationship Specialty Start Date End Date Darvin Grajeda MD [address] [place] [address] PCP - General Family Practice 06/15/14 documented as of this encounter
--- OUTSIDE RECORDS SUMMARY | 2024-08-24 16:20 | XMS_ITS | Clinical Summary ---
Author Organization [facility] Address [address] [place] [address] Care Team Providers Care Machine I Coremaker Name Role Phone Darvin Grajeda MD Primary Car e Provider Source Comments You are receiving this document as you are listed as the primary care provider,follow-up provider, or the patient has been referred to you for consultation.This is in compliance with the Medicare and[facility] Hospitalcaid EHR Incentive Program,which states Providers who transition their patient to another setting of careor provider of care or refers their patient to another provider of care shouldprovide summary care record for each transition of care or referral. Boke Allergies Active Allergy Reactions Criticality Noted Date Comments [facility] (Diagnostic) Other, see comments 016 Almonds food. [...] Type Department Care Team Description 07/08/2024 Telephone [facility] [address] [place] [address] Darvin Grajeda MD QUESTIONS, GENERAL 07/07/2024 Telephone Physical Therapy at [address] [phone] Will Robertson, PT Other 07/07/2024 Telephone Physical Therapy at [address] [phone] Mark Workman, PT No Show 07/03/2024 1:00 PM RECREATIONAL SPORTS DIRECTOR Ancillary Procedure MRI at [address] [address] Darvin Grajeda MD 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) 06/25/2024 Telephone Physical Therapy at [address] [address] Mark Workman, PT No Show 06/23/2024 Telephone Physical Therapy at [address] [address] Irina Lewis, HEEL TURNER No Show 06/20/2024 1:30 PM RECREATIONAL SPORTS DIRECTOR Therapy Physical Therapy at [address] [phone] Will Robertson, PT Lumbar pain (Primary Dx); Pain in both lower extremities 06/20/2024 Telephone [facility] [address] [place] [address] Darvin Grajeda MD REFERRAL REQUEST 06/20/2024 Telephone Physical Therapy at [address] [address] Will Robertson, PT Post Visit Follow Up Phone Call 06/18/2024 10:30 AM RECREATIONAL SPORTS DIRECTOR Therapy Physical Therapy at [address] [phone] Mark Workman, PT Lumbar pain (Primary Dx); Pain in both lower extremities 06/12/2024 11:00 AM CDT Therapy Physical Therapy at [facility] Orthopedic [facility] [address] [place] [address] Will Robertson, PT Lumbar pain (Primary Dx); Pain in both lower extremities 06/04/2024 1:45 PM CDT Office Visit [facility] [address] [place] [address] Darvin Grajeda MD 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) (Primary Dx) from Last 3 Months Immunizations Name Administration Dates Next Due Meningococcal ACWY-TT (Menquadfi) 05/08/2022 Bexsero (Meningococcal Group B Vaccine) 02/27/2023 DTaP 03/07/2010, 9,02/07/2006,05/05,03/10/2005,01/13/2005 [id number] (Pediarix) 12/03/2008,04/14,03/10/2005,01/13 Flu Vac (3+ yrs) 07/28/2005,05/26/2005 Flu Vac Preserv Free (3+yrs) 07/28/2005,05/26/20 05 [id number] 07/05/2009 HepA Adult (19+ yrs) 03/07/2010,12/03/2008 HepB Ped/Adol (0-18 yrs) 12/03/2008,04/14,03/10/2005,01/13 Hib (ActHIB) 02/07/2006,03/10/2005,01/13/2005 Hib (PedvaxHIB) 02/07/2006,03/10/2005,01/13/2005 IPV (Polio) 12/03/2008, 5,03/10/2005,01/13 Influenza IIV4 (Quadrivalent ) 0.5mL (12244) 07/05/2009 MCV4 (Menactra) 03/01/2016 MCV4 Menveo 2m.+ [...] 36.9 C (98.5 F) 09/20/2021 9:48 AM RECREATIONAL SPORTS DIRECTOR Respiratory Rate 22 03/13/2019 1:04 PM CDT Oxygen Saturation 99% 07/19/2016 10:10 AM RECREATIONAL SPORTS DIRECTOR Inhaled Oxygen Concentration - - Weight 70.3 kg (155 lb) 06/04/2024 1:41 PM CDT Height 165.1 cm (5' 5) 09/13/2021 9:46 AM RECREATIONAL SPORTS DIRECTOR Body Mass Index - - Plan of [...] WO IV CONT Routine 07/03/2024 1:04 PM RECREATIONAL SPORTS DIRECTOR 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) BASIC METABOLIC PANEL Routine 03/05/2024 8:55 AM CDT Type 1 diabetes mellitus without complication (HRC) HGB A1C Routine 03/05/2024 8:55 AM CDT Type 1 diabetes mellitus without complication (HRC) LIPID PANEL & DIRECT LDL (IF NEEDED) Routine 09/03/2020 8:22 AM RECREATIONAL SPORTS DIRECTOR Type I (juvenile type) diabetes mellitus without mention of complication, not stated as uncontrolled ([facility]) from Last 3 Months or Most Recently Relevant to Health Maintenance Results * MR Lumbar Spine WO IV Cont (07/03/2024 1:04 PM RECREATIONAL SPORTS DIRECTOR) Anatomical Region Laterality Modality Spine, L-Spine, Skeletal, MSK Ma gnetic Resonance 07/03/2024 1:04 PM RECREATIONAL SPORTS DIRECTOR Narrative 07/04/2024 9:00 AM RECREATIONAL SPORTS DIRECTOR EXAM: MR LUMBAR SPINE WO IV CONT LOCATION: [facility] DATE: 07/03/2024 INDICATION: Back pain, worse after [...] MR LUMBAR SPINE WO IV CONT LOCATION: [facility] DATE: 07/03/2024 INDICATION: Back pain, worse after [...] contact suggested traversing right S1 nerve root [id number] image 37 could correlate to right S1 [...] - 145 mmol/L 03/05/2024 11:48 AM [facility] Potassium 3.5 3.5 - 5.1 mmol/L 03/05/2024 11:48 AM [facility] Chloride 106 98 - 109 mmol/L 03/05/2024 11:48 AM [facility] CO2 23 20 - 29 mmol/L 03/05/2024 11:48 AM T [facility] Anion Gap 12 6 - 16 mmol/L 03/05/2024 11:48 AM T [facility] Calcium 9.4 8.4 - 10.4 mg/dL 03/05/2024 11:48 AM T [facility] BUN 12 7 - 26 mg/dL 03/05/2024 11:48 AM T [facility] Creatinine 0.67(L) 0.73 - 1.18 mg/dL 03/05/2024 11:48 AM T [facility] Glucose 233(H) 70 - 100 mg/dL 03/05/2024 11:48 AM [facility] Comment:The given reference range is for the fasting state. Non-fasting reference range for glucose is 70 - 180 mg/dL. GFR, Estimated >60 >60 mL/min/1. 73m2 03/05/2024 11:48 AM T [facility] Hours Fasting 0.0 8 - 12 Hours 03/05/2024 11:48 AM [facility] Blood Venipuncture / Unknown 03/05/2024 8:55 AM CDT 03/05/2024 8:55 AM CDT Darvin Grajeda MD LAB_ 1 [facility] [address] [address], [facility] * (ABNORMAL) Hgb A1C (03/05/2024 8:55 AM CDT) Hemoglobin A1C 7.0(H) <=5.6 % 03/05/2024 12:10 PM CDT [facility] Estimated Average Glucose (Calc) 154 < 117 mg/dL 03/05/2024 12:10 PM CDT [facility] Comment:Estimated average gl ucose (eAG) converts A1c into glucose units (mg/dL) and estimates average glucose over the past approximately 3 months. The eAG reference interval (<117 mg/dL) corresponds to an A1c of <5.7%. Blood Venipuncture / Unknown 03/05/2024 8:55 AM CDT 03/05/2024 8:55 AM CDT Narrative [facility] - 03/05/2024 12:10 PM CDT For patients not previously diagnosed with diabetes: 5.7-6.4%: Increased risk for diabetes 6.5% and greater: Diagnostic for diabetes For patients diagnosed with diabetes: <8.0%: Goal of therapy for ages 18-75 Clinicians may recommend a higher or lower goal for specific individuals. Darvin Grajeda MD LAB_ 1 [facility] [address] [address], [facility] * (ABNORMAL) Lipid Panel and Direct LDL(If Needed) (09/03/2020 8:22 AM RECREATIONAL SPORTS DIRECTOR) Cholesterol 235(H) 0 - 199 mg/dL 09/03/2020 9:00 AM [facility] Triglyceride 162(H) <=149 mg/dL 09/03/2020 9:00 AM [facility] HDL Cholesterol 41 >=40 mg/dL 9:00 AM [facility] LDL, Calculated 162(H) <130 mg/dL 9:00 AM [facility] Non HDL Chol, Calculated 194(H) <=144 mg/dL 09/03/2020 9:00 AM [facility] Cholesterol/HDL Ratio 5.7 09/03/2020 9:00 AM [facility] Hours Fasting 14 09/03/2020 9:00 AM [facility] Blood Lab OP Venipunct ure / Unknown 09/03/2020 8:22 AM RECREATIONAL SPORTS DIRECTOR 09/03/2020 8:26 AM RECREATIONAL SPORTS DIRECTOR Darvin Grajeda MD LAB_ [address] [address], [facility] [phone] from Last 3 Months or Most Recently Relevant to Health Maintenance Care Teams Machine I Coremaker Relationship Specialty Start Date End Date Darvin Grajeda MD [address] [place] [address] PCP - General Family Practice 06/15/14
--- OUTSIDE RECORDS SUMMARY | 2024-08-24 16:20 | XMS_ITS | Encounter Summary ---
Author Organization [facility] Address [address] [place] [address] Care Team Providers Care Behavioral Interventionist Name Role Phone Darvin Grajeda MD Primary Car e Provider Encounter Details Date Type Department Care Team (Late st Contact Info) Description 02/26/2017 Correspondence [facility] [address] [place] [address] Darvin Grajeda MD [address] [place] [address] LIBERTAD HYMAN AUTH AND MEDICAL RECORD Social [...] Time COVID19 07/06/2020 07/06/2020 07/27/2020 3:17 AM SCOOTER MECHANIC R/O COVID19 06/13/2021 06/13/2021 06/13/2021 9:27 PM CDT documented as of this encounter Care Teams Behavioral Interventionist Relationship Specialty Start Date End Date Darvin Grajeda MD [address] [place] [address] PCP - General Family Practice 06/15/14 documented as of this encounter
--- OUTSIDE RECORDS SUMMARY | 2024-08-24 16:20 | XMS_ITS | Continuity of Care Document ---
Author Name NwHIN User [place]-a llowed Address Unknown Organization Unknown Address Unknown Encounters FILTER APPLIED:Only known Encounters with Admission Date within the last 5 years Encounter Location Admission Discharge Billing Code Zone Supervisor Firearms Maci ttender Emergency [id number] JUSTINE LACY
--- OUTSIDE RECORDS SUMMARY | 2024-08-24 16:20 | XMS_ITS | Encounter Summary ---
Author Organization [facility] Address [address] [place] [address] Care Team Providers Care Machine Featheredger And Reducer Name Role Phone Darvin Grajeda MD Primary Car e Provider Encounter Details Date Type Department Care Team (Late st Contact Info) Description 04/28/2014 Scanned History External to [facility], Provider [facility] Social History Tobacco Use Types [...] Time COVID19 07/06/2020 07/06/2020 07/27/2020 3:17 AM RN RECOVERY R/O COVID19 06/13/2021 06/13/2021 06/13/2021 9:27 PM CDT documented as of this encounter Care Teams Machine Featheredger And Reducer Relationship Specialty Start Date End Date Darvin Grajeda MD [address] [place] [address] PCP - General Family Practice 06/15/14 documented as of this encounter
--- OUTSIDE RECORDS SUMMARY | 2024-08-24 16:20 | XMS_ITS ---
Author Organization [facility] Address [address] [place] [address] Care Team Providers Care Hog Sawyer Name Role Phone Unavailable Unavailable Unavailable Surgery Details Not on file Complications Check Surgery Details section. Procedure Estimated Blood Loss Check Surgery Details section. Procedure Findings Check Surgery Details section. Procedure Specimens Taken Check Surgery Details section.
--- OUTSIDE RECORDS SUMMARY | 2024-08-24 16:20 | XMS_ITS | Clinical Summary ---
Author Organization [facility] Address [place], [place] [address] Care Team Providers Care Hydroblaster Name Role Phone Clinic, No Pcp Or Primary Care Provider Unavaila ble Allergies Active Allergy Reactions Criticality Noted Date Comments [place] Other - Describe In Comment Field Unknown [...] Department Care Team Description 07/08/2024 1:30 PM BUILDING CONSTRUCTION CONTRACTOR Office Visit [facility] [address] [place] [address] Iveth Prince [facility] Visit 07/08/2024 Travel from [...] st Contact Info) Description 09/01/2024 1:00 PM BUILDING CONSTRUCTION CONTRACTOR Telemedicine [facility] [address] [address] Yris Gray, PhD, LP [address] [place] [address] Health Maintenance Due Date Last Done Comments [...] patient's age to complete this topic Insurance [facility] [place] [id number] [facility] REFERRAL Member Subscriber Plan / Payer (Ef fective 2024-Present) Name:Osei Hartman Member ID:[id number] Relation to Subscriber:Self Name:Osei Hartman Subscriber ID:[id number] Payer ID:Not on file Group ID:Not on file Type:Not on file Address: FOR [employer] BLUE CROSS OF NON-[place]-ITS Care Teams Hydroblaster Relationship Specialty Start Date End Date Clinic, No Pcp Or . PCP - General 05/14/24
--- OUTSIDE RECORDS SUMMARY | 2024-08-24 16:20 | XMS_ITS | Encounter Summary ---
Author Organization [facility] Address [address] [place] [address] Care Team Providers Care Boom Boss Name Role Phone Darvin Grajeda MD Primary Car e Provider Encounter Details Date Type Department Care Team (Late st Contact Info) Description 02/07/2013 Scanned History External to Transferred Record, Provider [facility] Social History Tobacco Use Types Packs/Day Years Used Date Smoking Tobacco: Never Assessed Sex and Gender Information Value Date Recorded Sex Assigned at Not on file Gender Identity Not on file Sexual Orientation Not on file documented as of this encounter Progress Notes * Transferred Record, Provider - 02/07/2013 12:00 AM CDT S SUPERVISOR documented in this encounter Plan of Treatment Not on file documented as of this encounter Visit Diagnoses Not on filedocumented in this encounter Additional Health Concerns Infection Onset Date Last Indicated Resolved Time COVID19 07/06/2020 07/06/2020 07/27/2020 3:17 AM DIALS SUPERVISOR R/O COVID19 06/13/2021 06/13/2021 06/13/2021 9:27 PM CDT documented as of this encounter Care Teams Boom Boss Relationship Specialty Start Date End Date Darvin Grajeda MD [address] [place] [place] [address] PCP - General Family Practice 06/15/14 documented as of this encounter
--- OUTSIDE RECORDS SUMMARY | 2024-08-24 16:20 | XMS_ITS | Encounter Summary ---
Author Organization [facility] Address [address] [place] [address] Care Team Providers Care Hydraulic Governor Assembler Name Role Phone Darvin Grajeda MD Primary [...] Time COVID19 07/06/2020 07/06/2020 07/27/2020 3:17 AM RECREATIONAL DIRECTOR R/O COVID19 06/13/2021 06/13/2021 06/13/2021 9:27 PM CDT documented as of this encounter Care Teams Hydraulic Governor Assembler Relationship Specialty Start Date End Date Darvin Grajeda MD [address] [place] [address] PCP - General Family Practice 06/15/14 documented as of this encounter
--- OUTSIDE RECORDS SUMMARY | 2024-08-24 16:20 | XMS_ITS | Encounter Summary ---
Author Organization [facility] Address [address] [place] [address] Care Team Providers Care Hotel Sales Manager Name Role Phone Darvin Grajeda MD Primary Car e Provider Encounter Details Date Type Department Care Team (Late st Contact Info) Description 04/22/2016 Correspondence External to External, [place] [address] AUTH TO ADMINISTER RX AT SCHOOL Social [...] Time COVID19 07/06/2020 07/06/2020 07/27/2020 3:17 AM CORE MANAGER R/O COVID19 06/13/2021 06/13/2021 06/13/2021 9:27 PM CDT documented as of this encounter Care Teams Hotel Sales Manager Relationship Specialty Start Date End Date Darvin Grajeda MD [address] [place] [address] PCP - General Family Practice 06/15/14 documented as of this encounter
--- OUTSIDE RECORDS SUMMARY | 2024-08-24 16:20 | XMS_ITS | Clinical Summary ---
Author Organization [facility] Address [address] [place] [address] Care Team Providers Care Foundation Stage Teacher Name Role Phone Unavailable Primary Care Provider Unavailabl e Source Comments Patient records contain information from all sites at [facility]. For routine questions regarding patient records, call [phone] during business hours, M-F 8:00 AM - 5:00 PM Central Time. 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
--- OUTSIDE RECORDS SUMMARY | 2024-08-24 16:20 | XMS_ITS | Encounter Summary ---
Author Organization [facility] Address [address] [place] [address] Care Team Providers Care Fitness Centre Manager Name Role Phone Darvin Grajeda MD Primary Car e Provider Encounter Details Date Type Department Care Team (Late st Contact Info) Description 06/17/2014 Correspondence [facility] [address] [place] [address] Darvin Grajeda MD [address] [place] [address] DME INSTRUCTION DELIVERY Social History Tobacco Use [...] Time COVID19 07/06/2020 07/06/2020 07/27/2020 3:17 AM STOCK PREPARER R/O COVID19 06/13/2021 06/13/2021 06/13/2021 9:27 PM CDT documented as of this encounter Care Teams Fitness Centre Manager Relationship Specialty Start Date End Date Darvin Grajeda MD [address] [facility] [place] [address] PCP - General Family Practice 06/15/14 documented as of this encounter
--- OUTSIDE RECORDS SUMMARY | 2024-08-24 16:20 | XMS_ITS | Encounter Summary ---
Author Organization [facility] Address [address] [place] [address] Care Team Providers Care Drum Saw Operator Name Role Phone Darvin Grajeda MD Primary Car e Provider Encounter Details Date Type Department Care Team (Late st Contact Info) Description 06/17/2014 Correspondence None No Primary/Referring, Phy EQUIPMENT SENIOR RESEARCH PROJECT MANAGER TICKET Social History Tobacco Use Types Packs/Day [...] COVID19 07/06/2020 07/06/2020 07/27/2020 3:17 AM RN EMBEDDED R/O COVID19 06/13/2021 06/13/2021 06/13/2021 9:27 PM CDT documented as of this encounter Care Teams Drum Saw Operator Relationship Specialty Start Date End Date Darvin Grajeda MD [address] [place] [address] PCP - General Family Practice 06/15/14 documented as of this encounter
--- OUTSIDE RECORDS SUMMARY | 2024-08-24 16:20 | XMS_ITS | Encounter Summary ---
Author Organization [facility] Address [address] [place] [address] Care Team Providers Care Environmental Remediation Engineer Name Role Phone Darvin Grajeda MD Primary Car e Provider Encounter Details Date Type Department Care Team (Late st Contact Info) Description 07/16/2015 Correspondence [facility] [address] [place] [address] Darvin Grajeda MD [address] [place] [address] SCHOOL ADMINISTRATON OF MEDICATION Social History Tobacco [...] Time COVID19 07/06/2020 07/06/2020 07/27/2020 3:17 AM COMPUTER NETWORK ENGINEER R/O COVID19 06/13/2021 06/13/2021 06/13/2021 9:27 PM CDT documented as of this encounter Care Teams Environmental Remediation Engineer Relationship Specialty Start Date End Date Darvin Grajeda MD [address] [place] [address] PCP - General Family Practice 06/15/14 documented as of this encounter
--- OUTSIDE RECORDS SUMMARY | 2024-08-24 16:20 | XMS_ITS | Referral Summary ---
Author Organization [facility] Address [address] [place] [address] Care Team Providers Care House Parent Name Role Phone Unavailable Primary Care Provider Unavailabl e Source Comments Patient records contain information from all sites at [facility]. For routine questions regarding patient records, call [phone] during business hours, M-F 8:00 AM - 5:00 PM Central Time. 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
--- NOTE | 2024-08-24 18:18 | ED_ITS ---
HPI - General Adult General Date Seen: 08/24/24 Chief complaint: Nausea/Vomiting Stated complaint: Constant Nausea Time Seen by Provider: 08/24/24 18:18 History of Present Illness HPI narrative: 18 yo M with a past history of type 1 diabetes, elevated BMI, ADD, depression, influenza a. He was seen in the ER 5 days ago on 08/19/2024 for fever. Blood sugar was 333 at home. Workup in the ER showed temperature of 105.3, pulse of 129, respiratory rate 22, blood pressure 146/72, oxygen 98%. He was treated with a L fluids and a g of Tylenol. Follow-up temperature came down to 99.9. Heart rate was still 129. Labs showed a white count of 7.2, hemoglobin 14.8, platelet count 204. Venous pH was 7.39, pCO2 41. Sodium 134, potassium 3.6, chloride 100, bicarb 23, anion gap 11, BUN 13, creatinine 0.8, glucose 247, venous lactic 2.4, LFTs were normal. CRP was 1.2. PCR was positive for influenza a, negative for COVID, RSV. Started on Tamiflu 75 mg b.i.d.. Since starting on the Tamiflu his influenza symptoms have gotten better. No fever for several days. No cough. No body aches. He finished his last dose of Tamiflu yesterday. Beginning yesterday he started to feel generally weak and mildly nauseous. He suspects is a probably a side effect of the Tamiflu. He has not been vomiting. Blood sugars have been pretty normal for him. He ranging 60 up to about 118. He has not had any highs. His glucometer and bumped the been working well. The no ongoing headache. No body aches. No abdominal pain. No fevers. No rash. He just came to the ER because he was nauseous after ring out with his friends and needed some nausea medicine. He would also like a note for work. He will refer not to have lab workup for IV. He just wants try nausea medication Related Data Home Medications ?Medication ?Instructions ?Recorded ?Confirmed blood-glucose sensor (DexBiOxyDyn G6 #3 ea 05/08/22 02/27/23 Sensor device) blood-glucose transmitter (Dexcom #1 ea 05/08/22 02/27/23 G6 Transmitter device) insulin lispro 100 unit/mL ml subcut 05/08/22 03/17/24 subcutaneous pen Previous Rx's ?Medication ?Instructions ?Recorded glucagon HCl 1 mg solution for 1 mg subcut Q20M PRN hypoglycemia 02/27/23 injection (Glucagon (HCl) #1 ea Emergency Kit) ondansetron HCl 4 mg tablet 4 mg PO Q8H #10 tabs 08/24/24 Allergies Allergy/AdvReac Type Severity Reaction Status Date / Time No Known Drug Allergies Allergy Verified 08/19/24 19:45 [facility] Medical History Obesity (BMI 30.0-34.9) ?E66.9 - Obesity, unspecified (ICD-10) Hypercholesteremia ?E78.00 - Pure hypercholesterolemia, unspecified (ICD-10) Cerumen impaction ?H61.20 - Impacted cerumen, unspecified ear (ICD-10) Diabetes type 1, controlled ?E10.9 - Type 1 diabetes mellitus without complications (ICD-10) Social History Smoking Status: Never smoker Exam Narrative: Exam Narrative: Constitutional: Appears well-developed and well-nourished. Alert. Conversant. Very polite. Non toxic. HENT: Head: Atraumatic. Nose: Nose normal. Mouth/Throat: Oral mucosa is clear and moist. no trismus. Pharynx normal. Tonsils symmetric. No tonsillar enlargement, erythema, or exudate. Eyes: Conjunctivae normal. EOM normal. Pupils equal, round, and reactive to light. No scleral icterus. Neck: Normal range of motion. Neck supple. No tracheal deviation present. Cardiovascular: Normal rate, regular rhythm. No gallop. No friction rub. No murmur heard. Symmetric radial artery pulses Pulmonary/Chest: Effort normal. No stridor. No respiratory distress. No wheezes. No rales. No rhonchi Abdominal: Soft. Bowel sounds normal. No distension. No mass. No tenderness. No rebound. No guarding. Musculoskeletal: RUE: Normal range of motion. No tenderness. No deformity LUE: Normal range of motion. No tenderness. No deformity RLE: Normal range of motion. No edema. No tenderness. No deformity LLE: Normal range of motion. No edema. No tenderness. No deformity Neurological: Alert and oriented to person, place, and time. Normal strength. CN II-VII intact. No sensory deficit. GCS eye subscore is 4. GCS verbal subscore is 5. GCS motor subscore is 6. Normal coordination Skin: Skin is warm and dry. No rash noted. No pallor. Normal capillary refill. Psychiatric: Normal mood. Normal affect. Const: Vital Signs, click to edit/add: Vital Signs - 24 hr 08/24/24 16:18 Temperature 98.4 F Pulse Rate [Pulse Oximeter] 114 H Respiratory Rate 18 Blood Pressure [Ri t Upper Arm] 100/67 Pulse Oximetry 97 Oxygen Delivery Me thod Room Air Course Course ED Course: Recheck-nausea improved after Zofran. Will try p.o. challenge Reevaluation(s) Reevaluation #1: Recheck-did well with p.o. challenge. Ready to discharge home Vital Signs Vital signs: Initial Vital Signs Temperature 98.4 F 08/24/24 16:18 Temperature Source Temporal Artery Scan 08/24/24 16:18 Pulse Rate 114 H 08/24/24 16:18 Respiratory Rate 18 08/24/24 16:18 Blood Pressure 100/67 08/24/24 16:18 Blood Pressure Mean 78 08/24/24 16:18 Blood Pressure Position Sitting 08/24/24 16:18 Pulse Oximetry 97 08/24/24 16:18 Oxygen Delivery Method Room Air 08/24/24 16:18 Vital Signs Temperature 98.4 F 08/24/24 16:18 Pulse Rate 114 H 08/24/24 16:18 Respiratory Rate 18 08/24/24 16:18 Blood Pressure 100/67 08/24/24 16:18 Pulse Oximetry 97 08/24/24 16:18 Oxygen Delivery Method Room Air 08/24/24 16:18 Temperature 98.4 F 08/24/24 16:18 Pulse Rate 114 H 08/24/24 16:18 Respiratory Rate 18 08/24/24 16:18 Blood Pressure 100/67 08/24/24 16:18 Pulse Oximetry 97 08/24/24 16:18 Oxygen Delivery Method Room Air 08/24/24 16:18 Medications Administered Medications: Discontinued Medications Generic Name Dose Route Start Last Admin Trade Name Freq PRN Reason Stop Dose Admin Ondansetron HCl 4 mg 08/24/24 18:32 08/24/24 18:34 Ondansetron Odt 4 Mg Tab PO 08/24/24 18:33 4 mg ONCE ONE Administration Medical Decision Making MDM Narrative Medical decision making narrative: Very pleasant 18-year-old male with history of type 1 diabetes in diagnosed with influenza a 5 days ago. He has now completed his course of Tamiflu this morning. He came back to the ER because of nausea. He has suspects is probably a side effect of Tamiflu. From on influenza perspective he has been afebrile for several days, no cough, no body aches or headache or other symptoms ongoing influenza. At this point I do not think he needs labs or chest x-ray to double check for complications of flu From a nausea standpoint the patient believes it is probably a side effect of Tamiflu, which is likely. Differential would also include diabetic complications such as hyperglycemia, DKA old hold the patient's blood sugars have been in the normal and low range today ranging 60 up to 118. He is not having any other symptoms such as polyuria, polydipsia, headache, confusion to suggest DKA. I had initially ordered lab workup just to rule out metabolic complications but the patient would prefer to avoid that. Since the patient is completely improved after Zofran, I think it is reasonable to leave labs out. Likelihood of DKA is very low. He is not having any abdominal pain to suggest appendicitis, bowel obstruction, pancreatitis, gastritis, peptic ulcer disease, colitis. At this point I do not think he needs laboratory workup her CT imaging to look for that pathology He is feeling much better after Zofran and tolerating p.o.. Will discharge home with a prescription for Zofran that he can use p.r.n.. He also requests a work note, provided. Discussed with the patient that at this point the clinical pressure looks reassuring but with his diabetes, we need to monitor very carefully. Precautions for return to the ER reviewed. Questions answered. Discharge Plan Discharge Clinical Impression: Nausea Patient Disposition: Home, Self-Care Condition: Stable Instructions: Acute Nausea and Vomiting (DC) Additional Instructions: As we discussed, please come back to the ER right away if you have recurring nausea or uncontrolled vomiting, dehydration, fever, high blood sugar readings, weakness, abdominal pain, or any other concerns Use Zofran if needed to control nausea. Monitor blood sugar carefully. You may return to work when you are feeling better. Prescriptions: New ondansetron HCl 4 mg tablet 4 mg PO Q8H Qty: 10 0RF No Action (DME) Dexcom G6 Transmitter Device See Rx Instructions .ROUTE .MEDSUPPLY Qty: 1 Patient Comments: CHANGE EVERY 90 DAYS Rx Instructions: As directed (DME) Dexcom G6 Sensor Device See Rx Instructions .ROUTE .MEDSUPPLY Qty: 3 Patient Comments: CHANGE EVERY 10 DAYS Rx Instructions: As directed insulin lispro 100 unit/mL insulin pen subcut Patient Comments: FOR USE IN INSULIN PUMP DAILY USING UP TO 110 UNITS PER DAY glucagon HCl [Glucagon (HCl) Emergency Kit] 1 mg recon soln 1 mg subcut Q20M PRN (Reason: hypoglycemia) Qty: 1 5RF Rx Instructions: until target blood sugar attained Follow Up/Referrals: Dany Hennessy MD [Primary Care Provider] - Stand Alone [facility]
[2024-08-24] MEDS: ONDANSETRON ODT 4 MG TAB PO (18:34)
--- OUTSIDE RECORDS SUMMARY | 2024-08-24 19:02 | XMS_ITS | Encounter Summary ---
Author Organization [facility] Address [address] [place] [address] Care Team Providers Care Power And Recovery Superintendent Name Role Phone Darvin Grajeda MD Primary Car e Provider Encounter Details Date Type Department Care Team (Late st Contact Info) Description 06/17/2014 Correspondence None No Primary/Referring, Phy EQUIPMENT YARN DYER TICKET Social History Tobacco Use Types Packs/Day [...] Time COVID19 07/06/2020 07/06/2020 07/27/2020 3:17 AM CODING TEAM LEAD R/O COVID19 06/13/2021 06/13/2021 06/13/2021 9:27 PM CDT documented as of this encounter Care Teams Power And Recovery Superintendent Relationship Specialty Start Date End Date Darvin Grajeda MD [address] [place] [address] PCP - General Family Practice 06/15/14 documented as of this encounter
--- OUTSIDE RECORDS SUMMARY | 2024-08-24 19:02 | XMS_ITS | Clinical Summary ---
Author Organization [facility] Address [place], [place] [address] Care Team Providers Care Cloth Framer Name Role Phone Clinic, No Pcp Or Primary Care Provider Unavaila ble Allergies Active Allergy Reactions Criticality Noted Date Comments [place] Other - Describe In Comment Field Unknown [...] Department Care Team Description 07/08/2024 1:30 PM DATABASE CONSULTANT Office Visit [facility] [address] [place] [address] Iveth Prince [facility] Visit 07/08/2024 Travel [...] st Contact Info) Description 09/01/2024 1:00 PM DATABASE CONSULTANT Telemedicine [facility] [address] [address] Yris Gray, PhD, LP [address] [place] [address] Health Maintenance Due Date Last Done Comments [...] patient's age to complete this topic Insurance [facility] [place] [id number] [facility] REFERRAL Member Subscriber Plan / Payer (Ef fective 2024-Present) Name:Osei Hartman Member ID:[id number] Relation to Subscriber:Self Name:Osei Hartman Subscriber ID:[id number] Payer ID:Not on file Group ID:Not on file Type:Not on file Address: FOR [employer] BLUE CROSS OF NON-NC-ITS Care Teams Cloth Framer Relationship Specialty Start Date End Date Clinic, No Pcp Or . PCP - General 05/14/24
--- OUTSIDE RECORDS SUMMARY | 2024-08-24 19:02 | XMS_ITS | Clinical Summary ---
Author Organization [facility] Address [address] [place] [address] Care Team Providers Care Clinical Asst Name Role Phone Darvin Grajeda MD Primary Car e Provider Source Comments You are receiving this document as you are listed as the primary care provider,follow-up provider, or the patient has been referred to you for consultation.This is in compliance with the Medicare and[facility] Hospital[facility] EHR Incentive Program,which states Providers who transition their patient to another setting of careor provider of care or refers their patient to another provider of care shouldprovide summary care record for each transition of care or referral. Markerly Allergies Active Allergy Reactions Criticality Noted Date Comments [place] (Diagnostic) Other, see comments 016 [employer]monds food. [...] Type Department Care Team Description 07/08/2024 Telephone [facility] [address] [place] [address] Darvin Grajeda MD QUESTIONS, GENERAL 07/07/2024 Telephone Physical Therapy at [address] [phone] Will Robertson, PT Other 07/07/2024 Telephone Physical Therapy at [address] [phone] Mark Workman, PT No Show 07/03/2024 1:00 PM HAULPAK DRIVER Ancillary Procedure MRI at [address] [address] Darvin Grajeda MD 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) 06/25/2024 Telephone Physical Therapy at [address] [address] Mark Workman, PT No Show 06/23/2024 Telephone Physical Therapy at [address] [address] Irina Lewis, RECOVERY COACH No Show 06/20/2024 1:30 PM HAULPAK DRIVER Therapy Physical Therapy at [address] [phone] Will Robertson, PT Lumbar pain (Primary Dx); Pain in both lower extremities 06/20/2024 Telephone [facility] [address] [place] [address] Darvin Grajeda MD REFERRAL REQUEST 06/20/2024 Telephone Physical Therapy at [address] [phone] Will Robertson, PT Post Visit Follow Up Phone Call 06/18/2024 10:30 AM HAULPAK DRIVER Therapy Physical Therapy at [address] [phone] Mark Workman, PT Lumbar pain (Primary Dx); Pain in both lower extremities 06/12/2024 11:00 AM CDT Therapy Physical Therapy at [facility] Orthopedic [facility] [address] [place] [address] Will Robertson, PT Lumbar pain (Primary Dx); Pain in both lower extremities 06/04/2024 1:45 PM CDT Office Visit [facility] [address] [place] [address] Darvin Grajeda MD 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) (Primary Dx) from Last 3 Months Immunizations Name Administration Dates Next Due Meningococcal ACWY-TT (Menquadfi) 05/08/2022 Bexsero (Meningococcal Group B Vaccine) 02/27/2023 DTaP 03/07/2010, 9,02/07/2006,05/05,03/10/2005,01/13/2005 [id number] (Pediarix) 12/03/2008,04/14,03/10/2005,01/13 Flu Vac (3+ yrs) 07/28/2005,05/26/2005 Flu Vac Preserv Free (3+yrs) 07/28/2005,05/26/20 05 [id number] 07/05/2009 HepA Adult (19+ yrs) 03/07/2010,12/03/2008 HepB Ped/Adol (0-18 yrs) 12/03/2008,04/14,03/10/2005,01/13 Hib (ActHIB) 02/07/2006,03/10/2005,01/13/2005 Hib (PedvaxHIB) 02/07/2006,03/10/2005,01/13/2005 IPV (Polio) 12/03/2008, 5,03/10/2005,01/13 Influenza IIV4 (Quadrivalent ) 0.5mL (08046) 07/05/2009 MCV4 (Menactra) 03/01/2016 MCV4 Menveo 2m.+ [...] 36.9 C (98.5 F) 09/20/2021 9:48 AM HAULPAK DRIVER Respiratory Rate 22 03/13/2019 1:04 PM CDT Oxygen Saturation 99% 07/19/2016 10:10 AM HAULPAK DRIVER Inhaled Oxygen Concentration - - Weight 70.3 kg (155 lb) 06/04/2024 1:41 PM CDT Height 165.1 cm (5' 5) 09/13/2021 9:46 AM HAULPAK DRIVER Body Mass Index - - Plan of [...] WO IV CONT Routine 07/03/2024 1:04 PM HAULPAK DRIVER 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) BASIC METABOLIC PANEL Routine 03/05/2024 8:55 AM CDT Type 1 diabetes mellitus without complication (HRC) HGB A1C Routine 03/05/2024 8:55 AM CDT Type 1 diabetes mellitus without complication (HRC) LIPID PANEL & DIRECT LDL (IF NEEDED) Routine 09/03/2020 8:22 AM HAULPAK DRIVER Type I (juvenile type) diabetes mellitus without mention of complication, not stated as uncontrolled ([facility]) from Last 3 Months or Most Recently Relevant to Health Maintenance Results * MR Lumbar Spine WO IV Cont (07/03/2024 1:04 PM HAULPAK DRIVER) Anatomical Region Laterality Modality Spine, L-Spine, Skeletal, MSK Ma gnetic Resonance 07/03/2024 1:04 PM HAULPAK DRIVER Narrative 07/04/2024 9:00 AM HAULPAK DRIVER EXAM: MR LUMBAR SPINE WO IV CONT LOCATION: [facility] DATE: 07/03/2024 INDICATION: Back pain, worse [...] MR LUMBAR SPINE WO IV CONT LOCATION: [facility] DATE: 07/03/2024 INDICATION: Back pain, worse [...] contact suggested traversing right S1 nerve root [id number] image 37 could correlate to right S1 [...] - 145 mmol/L 03/05/2024 11:48 AM [facility] Potassium 3.5 3.5 - 5.1 mmol/L 03/05/2024 11:48 AM T [facility] [place] Chloride 106 98 - 109 mmol/L 03/05/2024 11:48 AM T [facility] [place] [facility] CO2 23 20 - 29 mmol/L 03/05/2024 11:[address] [facility] Anion Gap 12 6 - 16 mmol/L 03/05/2024 11:[address] [facility] Calcium 9.4 8.4 - 10.4 mg/dL 03/05/2024 11:[address] [facility] BUN 12 7 - 26 mg/dL 03/05/2024 11:[address] [facility] Creatinine 0.67(L) 0.73 - 1.18 mg/dL 03/05/2024 11:[address] [facility] Glucose 233(H) 70 - 100 mg/dL 03/05/2024 11:48 AM [facility] Comment:The given reference range is for the fasting state. Non-fasting reference range for glucose is 70 - 180 mg/dL. GFR, Estimated >60 >60 mL/min/1. 73m2 03/05/2024 11:48 AM T [facility] [place] Hours Fasting 0.0 8 - 12 Hours 03/05/2024 11:48 AM [facility] [place] Blood Venipuncture / Unknown 03/05/2024 8:55 AM CDT 03/05/2024 8:55 AM CDT Darvin Grajeda MD LAB_ [address] [facility] [address] [address], [facility] * (ABNORMAL) Hgb A1C (03/05/2024 8:55 AM CDT) Hemoglobin A1C 7.0(H) <=5.6 % 03/05/2024 12:[address] [facility] Estimated Average Glucose (Calc) 154 < 117 mg/dL 03/05/2024 12:[address] [facility] Comment:Estimated average gl ucose (eAG) converts A1c into glucose units (mg/dL) and estimates average glucose over the past approximately 3 months. The eAG reference interval (<117 mg/dL) corresponds to an A1c of <5.7%. Blood Venipuncture / Unknown 03/05/2024 8:55 AM CDT 03/05/2024 8:[address] [facility] - 03/05/2024 12:10 PM CDT For patients not previously diagnosed with diabetes: 5.7-6.4%: Increased risk for diabetes 6.5% and greater: Diagnostic for diabetes For patients diagnosed with diabetes: <8.0%: Goal of therapy for ages 18-75 Clinicians may recommend a higher or lower goal for specific individuals. Darvin Grajeda MD LAB_ 1 [facility] [address] [address], [facility] * (ABNORMAL) Lipid Panel and Direct LDL(If Needed) (09/03/2020 8:22 AM HAULPAK DRIVER) Cholesterol 235(H) 0 - 199 mg/dL 09/03/2020 9:00 AM [facility] Triglyceride 162(H) <=149 mg/dL 09/03/2020 9:00 AM [facility] HDL Cholesterol 41 >=40 mg/dL 9:00 AM [facility] LDL, Calculated 162(H) <130 mg/dL 9:00 AM [facility] Non HDL Chol, Calculated 194(H) <=144 mg/dL 09/03/2020 9:00 AM [facility] Cholesterol/HDL Ratio 5.7 09/03/2020 9:00 AM [facility] Hours Fasting 14 09/03/2020 9:00 AM [facility] Blood Lab OP Venipunct ure / Unknown 09/03/2020 8:22 AM HAULPAK DRIVER 09/03/2020 8:26 AM HAULPAK DRIVER Darvin Grajeda MD LAB_ [address] [address], [facility] [phone] from Last 3 Months or Most Recently Relevant to Health Maintenance Care Teams Clinical Asst Relationship Specialty Start Date End Date Darvin Grajeda MD [address] [place] [address] PCP - General Family Practice 06/15/14
--- OUTSIDE RECORDS SUMMARY | 2024-08-24 19:02 | XMS_ITS | Encounter Summary ---
Author Organization [facility] Address [address] [place] [address] Care Team Providers Care Skilled Labor Name Role Phone Darvin Grajeda MD Primary Car e Provider Encounter Details Date Type Department Care Team (Late st Contact Info) Description 07/16/2015 Correspondence [facility] [address] [place] [address] Darvin Grajeda MD [address] [place] [address] SCHOOL ADMINISTRATON OF MEDICATION Social History Tobacco [...] Time COVID19 07/06/2020 07/06/2020 07/27/2020 3:17 AM REGISTERED DIET TECHNICIAN R/O COVID19 06/13/2021 06/13/2021 06/13/2021 9:27 PM CDT documented as of this encounter Care Teams Skilled Labor Relationship Specialty Start Date End Date Darvin Grajeda MD [address] [place] [address] PCP - General Family Practice 06/15/14 documented as of this encounter
--- OUTSIDE RECORDS SUMMARY | 2024-08-24 19:02 | XMS_ITS | Encounter Summary ---
Author Organization [facility] Address [address] [place] [address] Care Team Providers Care Poultry Picking Machine Tender Name Role Phone Darvin Grajeda MD Primary Car e Provider Encounter Details Date Type Department Care Team (Late st Contact Info) Description 06/17/2014 Correspondence [facility] [address] [place] [address] Darvin Grajeda MD [address] [place] [address] EQUIPMENT GEAR HOBBER OPERATOR TICKET Social History Tobacco Use Types [...] Time COVID19 07/06/2020 07/06/2020 07/27/2020 3:17 AM WEIGHER AND GRADER R/O COVID19 06/13/2021 06/13/2021 06/13/2021 9:27 PM CDT documented as of this encounter Care Teams Poultry Picking Machine Tender Relationship Specialty Start Date End Date Darvin Grajeda MD [address] [place] [address] PCP - General Family Practice 06/15/14 documented as of this encounter
--- OUTSIDE RECORDS SUMMARY | 2024-08-24 19:02 | XMS_ITS | Encounter Summary ---
Author Organization [facility] Address [address] [place] [address] Care Team Providers Care Busgirl Name Role Phone Darvin Grajeda MD Primary Car e Provider Encounter Details Date Type Department Care Team (Late st Contact Info) Description 04/22/2016 Correspondence External to External, [place] [address] AUTH TO ADMINISTER RX AT SCHOOL Social [...] Time COVID19 07/06/2020 07/06/2020 07/27/2020 3:17 AM LICENSED STAFF MFT R/O COVID19 06/13/2021 06/13/2021 06/13/2021 9:27 PM CDT documented as of this encounter Care Teams Busgirl Relationship Specialty Start Date End Date Darvin Grajeda MD [address] [place] [address] PCP - General Family Practice 06/15/14 documented as of this encounter
--- OUTSIDE RECORDS SUMMARY | 2024-08-24 19:02 | XMS_ITS | Encounter Summary ---
Author Organization [facility] Address [address] [place] [address] Care Team Providers Care Cardiovascular Invasive Specialist Name Role Phone Darvin Grajeda MD Primary Car e Provider Reason for Visit * Reason Comments QUESTIONS, GENERAL Encounter Details Date Type Department Care Team (Late st Contact Info) Description 07/08/2024 Telephone [facility] [address] [place], [place] [phone] Darvin Grajeda MD [address] [place], [place] [phone] QUESTIONS, GENERAL Social History Tobacco Use Types [...] I can help you with today? No FILTER OPERATOR documented in this encounter Plan of Treatment Not on file documented as of this encounter Visit Diagnoses Not on filedocumented in this encounter Care Teams Cardiovascular Invasive Specialist Relationship Specialty Start Date End Date Darvin Grajeda MD [address] [place] [address] PCP - General Family Practice 06/15/14 documented as of this encounter
--- OUTSIDE RECORDS SUMMARY | 2024-08-24 19:02 | XMS_ITS | Encounter Summary ---
Author Organization [facility] Address [address] [place] [address] Care Team Providers Care Entry Level Manufacturing Engineer Name Role Phone Darvin Grajeda MD Primary Car e Provider Encounter Details Date Type Department Care Team (Late st Contact Info) Description 02/26/2017 Correspondence [facility] [address] [place] [address] Darvin Grajeda MD [address] [place] [address] LIBERTAD HYMAN AUTH AND MEDICAL RECORD Social [...] Time COVID19 07/06/2020 07/06/2020 07/27/2020 3:17 AM SPECIAL CERTIFICATE DICTATOR R/O COVID19 06/13/2021 06/13/2021 06/13/2021 9:27 PM CDT documented as of this encounter Care Teams Entry Level Manufacturing Engineer Relationship Specialty Start Date End Date Darvin Grajeda MD [address] [place] [place] [address] PCP - General Family Practice 06/15/14 documented as of this encounter
--- OUTSIDE RECORDS SUMMARY | 2024-08-24 19:02 | XMS_ITS | Encounter Summary ---
Author Organization [facility] Address [address] [place] [address] Care Team Providers Care Clerical Stock Inspector Name Role Phone Darvin Grajeda MD Primary Car e Provider Encounter Details Date Type Department Care Team (Late st Contact Info) Description 06/17/[address] [facility] [address] [place] [address] Darvin Grajeda MD [address] [place] [address] DME INSTRUCTION DELIVERY Social History Tobacco Use [...] Time COVID19 07/06/2020 07/06/2020 07/27/2020 3:17 AM LIME TRIMMER R/O COVID19 06/13/2021 06/13/2021 06/13/2021 9:27 PM CDT documented as of this encounter Care Teams Clerical Stock Inspector Relationship Specialty Start Date End Date Darvin Grajeda MD [address] [place] [address] PCP - General Family Practice 06/15/14 documented as of this encounter
--- OUTSIDE RECORDS SUMMARY | 2024-08-24 19:03 | XMS_ITS | Encounter Summary ---
Author Organization [facility] Address [address] [place] [address] Care Team Providers Care Continuous Improvement Black Belt Name Role Phone Darvin Grajeda MD Primary Car e Provider Encounter Details Date Type Department Care Team (Late st Contact Info) Description 02/07/2013 Scanned History External to [facility]red Record[facility] Social History Tobacco Use Types Packs/Day Years Used Date Smoking Tobacco: Never Assessed Sex and Gender Information Value Date Recorded Sex Assigned at Not on file Gender Identity Not on file Sexual Orientation Not on file documented as of this encounter Progress Notes * Transferred Record, Provider - 02/07/2013 12:00 AM CDT WRITER documented in this encounter Plan of Treatment Not on file documented as of this encounter Visit Diagnoses Not on filedocumented in this encounter Additional Health Concerns Infection Onset Date Last Indicated Resolved Time COVID19 07/06/2020 07/06/2020 07/27/2020 3:17 AM BOND WRITER R/O COVID19 06/13/2021 06/13/2021 06/13/2021 9:27 PM CDT documented as of this encounter Care Teams Continuous Improvement Black Belt Relationship Specialty Start Date End Date Darvin Grajeda MD [address] [place] [address] PCP - General Family Practice 06/15/14 documented as of this encounter
--- OUTSIDE RECORDS SUMMARY | 2024-08-24 19:03 | XMS_ITS | Encounter Summary ---
Author Organization [facility] Address [address] [place] [address] Care Team Providers Care Hris Developer Name Role Phone Darvin Grajeda MD Primary Car e Provider Encounter Details Date Type Department Care Team (Late st Contact Info) Description 04/28/2014 Scanned History External to [facility], Provider [facility] Social History Tobacco Use Types [...] COVID19 07/06/2020 07/06/2020 07/27/2020 3:17 AM LICENSED OPTICIAN R/O COVID19 06/13/2021 06/13/2021 06/13/2021 9:27 PM CDT documented as of this encounter Care Teams Hris Developer Relationship Specialty Start Date End Date Darvin Grajeda MD [address] [place] [address] PCP - General Family Practice 06/15/14 documented as of this encounter
--- OUTSIDE RECORDS SUMMARY | 2024-08-24 19:03 | XMS_ITS | Encounter Summary ---
Author Organization [facility] Address [address] [place] [address] Care Team Providers Care Electric Shipyard Operator Name Role Phone Darvin Grajeda MD Primary Car e Provider Encounter Details Date Type Department Care Team (Late st Contact Info) Description 09/10/2013 [facility], Provider IMM RECORD Social History Tobacco Use Types Packs/Day Years Used Date Smoking Tobacco: Never Assessed Sex and Gender Information Value Date Recorded Sex Assigned at Not on file Gender Identity Not on file Sexual Orientation Not on file documented as of this encounter Progress Notes * [facility], Provider - 09/10/2013 12:00 AM CST ETICIAN SPA documented in this encounter Plan of Treatment Not on file documented as of this encounter Visit Diagnoses Not on filedocumented in this encounter Additional Health Concerns Infection Onset Date Last Indicated Resolved Time COVID19 07/06/2020 07/06/2020 07/27/2020 3:17 AM ESTHETICIAN SPA R/O COVID19 06/13/2021 06/13/2021 06/13/2021 9:27 PM CDT documented as of this encounter Care Teams Electric Shipyard Operator Relationship Specialty Start Date End Date Darvin Grajeda MD [address] [place] [address] PCP - General Family Practice 06/15/14 documented as of this encounter
--- OUTSIDE RECORDS SUMMARY | 2024-08-24 19:03 | XMS_ITS ---
Author Organization [facility] Address [address] [place] [address] Care Team Providers Care Set Key Driver Name Role Phone Unavailable Unavailable Unavailable Surgery Details Not on file Complications Check Surgery Details section. Procedure Estimated Blood Loss Check Surgery Details section. Procedure Findings Check Surgery Details section. Procedure Specimens Taken Check Surgery Details section.
--- OUTSIDE RECORDS SUMMARY | 2024-08-24 19:03 | XMS_ITS | Referral Summary ---
Author Organization [facility] Address [address] [place] [address] Care Team Providers Care Asic Engineer Name Role Phone Unavailable Primary Care Provider Unavailabl e Source Comments Patient records contain information from all sites at [facility]. For routine questions regarding patient records, call [phone] during business hours, M-F 8:00 AM - 5:00 PM Central Time. Record requests for emergency care only can be directed to [phone] at any time.[facility] Allergies No known active allergies Medications [...] file Legal Sex Male 11:46 AM INDUSTRIAL RELATIONS COUNSELOR Gender Identity Not on file Sexual Orientation [...]
--- OUTSIDE RECORDS SUMMARY | 2024-08-24 19:03 | XMS_ITS | Clinical Summary ---
Author Organization [facility] Address [address] [place] [address] Care Team Providers Care Supervisor Solder Making Name Role Phone Unavailable Primary Care Provider Unavailabl e Source Comments Patient records contain information from all sites at [facility]. For routine questions regarding patient records, call [phone] during business hours, M-F 8:00 AM - 5:00 PM Central Time. Record requests for emergency care only can be directed to [phone] at any time.[facility] Allergies No known active allergies Medications glucagon [...] on file Legal Sex Male 11:46 AM METER SHOP SUPERINTENDENT Gender Identity Not on file Sexual Orientation [...]
--- OUTSIDE RECORDS SUMMARY | 2024-08-24 19:03 | XMS_ITS | Encounter Summary ---
Author Organization [facility] Address [address] [place] [address] Care Team Providers Care Instructional Media Services Technician Name Role Phone Darvin Grajeda MD [...] Time COVID19 07/06/2020 07/06/2020 07/27/2020 3:17 AM SENIOR SCRUM MASTER R/O COVID19 06/13/2021 06/13/2021 06/13/2021 9:27 PM CDT documented as of this encounter Care Teams Instructional Media Services Technician Relationship Specialty Start Date End Date Darvin Grajeda MD [address] [place] [address] PCP - General Family Practice 06/15/14 documented as of this encounter
--- OUTSIDE RECORDS SUMMARY | 2024-08-24 19:03 | XMS_ITS | Continuity of Care Document ---
Author Name [facility] User [email or web address] Address Unknown Organization Unknown Address Unknown Encounters FILTER APPLIED:Only known Encounters with Admission Date within the last 5 years Encounter Location Admission Discharge Billing Code Children Teacher [facility] Emergency [id number] JUSTINE LACY
== END 2024-08-24 19:43 | disposition home or self-care (01) ==
PROVIDERS: Emergency Provider Emergency Medicine; PCP Family Medicine
DX: R11.0 Nausea (principal)
CPT/HCPCS: 36415; 80053; 82803; 83605; 85025; 96374; 99282; 99284; A9270

== ENCOUNTER 2024-09-10 07:58 | Emergency (ER) | payer BC, SELFPAY ==
[2024-09-10 08:06] VITALS: BP 123/78; PULSE 90; RESP 16; TEMP 37.3; O2SAT 96; BMI 23.4
--- NOTE | 2024-09-10 08:42 | ED.GENADULT ---
HPI - General Adult General Chief complaint: Cough Stated complaint: congestion/cough Time Seen by Provider: 09/10/24 08:42 History of Present Illness HPI narrative: has been sick sunday, missed work the last 3 days. needs to find out what it is so can get back to work. c/o pressure behind L ear that is now better. cough and runny nose continues . 18-year-old young man presenting to the emergency department with concern of being sick. Tried to go to work today and was told that he needed a note. Admittedly does not feel very well. Feels more tired today than yesterday. Has been taking NyQuil and now some DayQuil. Symptoms began about 3 days ago with runny nose then increasing pressure through his face. The pressure behind the left ear. Cough as well. As noted fatigue. Does not report any rashes. Has not measured a fever. No vomiting or diarrhea. Related Data Home Medications ?Medication ?Instructions ?Recorded ?Confirmed blood-glucose sensor (Dexcom G6 #3 ea 05/08/22 02/27/23 Sensor device) blood-glucose transmitter (Dexcom #1 ea 05/08/22 02/27/23 G6 Transmitter device) insulin lispro 100 unit/mL ml subcut 05/08/22 03/17/24 subcutaneous pen Previous Rx's ?Medication ?Instructions ?Recorded glucagon HCl 1 mg solution for 1 mg subcut Q20M PRN hypoglycemia 02/27/23 injection (Glucagon (HCl) #1 ea Emergency Kit) ondansetron HCl 4 mg tablet 4 mg PO Q8H #10 tabs 08/24/24 Allergies Allergy/AdvReac Type Severity Reaction Status Date / Time No Known Drug Allergies Allergy Verified 08/19/24 19:45 Review of Systems Status of ROS: Reports: 6 or more systems reviewed and unremarkable except as noted in History and below [facility] Medical History Obesity (BMI 30.0-34.9) ?E66.9 - Obesity, unspecified (ICD-10) Hypercholesteremia ?E78.00 - Pure hypercholesterolemia, unspecified (ICD-10) Cerumen impaction ?H61.20 - Impacted cerumen, unspecified ear (ICD-10) Diabetes type 1, controlled ?E10.9 - Type 1 diabetes mellitus without complications (ICD-10) Social History Smoking Status: Current every day smoker Do you use any of these nicotine containing products: Vaping Products How often do you have a drink containing alcohol: monthly or less AUDIT-C Alcohol total score: 1 Non-prescribed substance use: denies use Exam Narrative: Exam Narrative: NAD. Sounds congested nasopharynx. No facial swelling erythema or tenderness. TMs bilaterally are clear. No swelling about the neck or behind the year; no lymphadenopathy. Lungs appear to be clear. Heart in regular rate and rhythm. Skin is warm and dry. Const: Vital Signs, click to edit/add: Vital Signs - 24 hr 09/10/24 08:06 Temperature 99.2 F Pulse Rate [Pulse Oximeter] 90 Respiratory Rate 16 Blood Pressure [Ri ght Upper Arm] 123/78 Pulse Oximetry 96 Oxygen Delivery Me thod Room Air Documenting provider has reviewed patient's vital signs: yes Course Vital Signs Vital signs: Initial Vital Signs Temperature 99.2 F 09/10/24 08:06 Temperature Source Temporal Artery Scan 09/10/24 08:06 Pulse Rate 90 09/10/24 08:06 Respiratory Rate 16 09/10/24 08:06 Respiratory Effort Normal 09/10/24 08:06 Respiratory Depth Normal 09/10/24 08:06 Respiratory Pattern Normal 09/10/24 08:06 Blood Pressure 123/78 09/10/24 08:06 Blood Pressure Mean 93 09/10/24 08:06 Blood Pressure Position Sitting 09/10/24 08:06 Pulse Oximetry 96 09/10/24 08:06 Oxygen Delivery Method Room Air 09/10/24 08:06 Vital Signs Temperature 99.2 F 09/10/24 08:06 Pulse Rate 90 09/10/24 08:06 Respiratory Rate 16 09/10/24 08:06 Blood Pressure 123/78 09/10/24 08:06 Pulse Oximetry 96 09/10/24 08:06 Oxygen Delivery Method Room Air 09/10/24 08:06 Temperature 99.2 F 09/10/24 08:06 Pulse Rate 90 09/10/24 08:06 Respiratory Rate 16 09/10/24 08:06 Blood Pressure 123/78 09/10/24 08:06 Pulse Oximetry 96 09/10/24 08:06 Oxygen Delivery Method Room Air 09/10/24 08:06 Medical Decision Making MDM Narrative Medical decision making narrative: Appears to have a lingering URI which may have been a sinusitis. Screening for COVID influenza and RSV due to community prevalence. Will probably focus on symptomatic treatment. Swabs are negative Stable vitals See patient discharge plan for further discussion Focus on hydration. Consider sleeping under the mist of a cool mist humidifier. Menthol vapors might be helpful. Can try pseudoephedrine for decongestion. I personally like the 12 hour formulation. 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 Could add this to your NyQuil/DayQuil if you want. Medical Records Medical records reviewed: Yes I reviewed the patient's medical records Lab Data Lab results reviewed: Yes I reviewed the patient's lab results Labs: Lab Results 09/10/24 Range/Units 08:10 SARS-CoV-2 (PCR) Negative SARS-CoV-2 (Negative) Influenza Type A (PCR) Negative PCR FLU A (Negative) Influenza Type B (PCR) Negative PCR FLU B (Negative) RSV (PCR) Negative PCR RSV (Negative) Discharge Plan Discharge Clinical Impression: URI (upper respiratory infection), Sinus congestion Patient Disposition: Home, Self-Care Condition: Stable Additional Instructions: Focus on hydration. Consider sleeping under the mist of a cool mist humidifier. Menthol vapors might be helpful. Can try pseudoephedrine for decongestion. I personally like the 12 hour formulation. 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 Could add this to your NyQuil/DayQuil if you want. Prescriptions: No Action (DME) Dexcom G6 Transmitter Device See Rx Instructions .ROUTE .MEDSUPPLY Qty: 1 Patient Comments: CHANGE EVERY 90 DAYS Rx Instructions: As directed (DME) Dexcom G6 Sensor Device See Rx Instructions .ROUTE .MEDSUPPLY Qty: 3 Patient Comments: CHANGE EVERY 10 DAYS Rx Instructions: As directed insulin lispro 100 unit/mL insulin pen subcut Patient Comments: FOR USE IN INSULIN PUMP DAILY USING UP TO 110 UNITS PER DAY glucagon HCl [Glucagon (HCl) Emergency Kit] 1 mg recon soln 1 mg subcut Q20M PRN (Reason: hypoglycemia) Qty: 1 5RF Rx Instructions: until target blood sugar attained ondansetron HCl 4 mg tablet 4 mg PO Q8H Qty: 10 0RF Follow Up/Referrals: Dany Hennessy MD [Primary Care Provider] - Stand Alone Forms: [employer] Info Instructions
[2024-09-10 09:03] LABS: PCR FLU A Negative PCR FLU A (Negative); PCR FLU B Negative PCR FLU B (Negative); PCR RSV Negative PCR RSV (Negative); SARS PCR* Negative SARS-CoV-2 (Negative)
--- OUTSIDE RECORDS SUMMARY | 2024-09-10 15:02 | XMS_ITS | Encounter Summary ---
Author Organization [facility] Address [address] [place] [address] Care Team Providers Care Go Cart Mechanic Name Role Phone Darvin Grajeda MD Primary Car e Provider Encounter Details Date Type Department Care Team (Late st Contact Info) Description 02/26/2017 Correspondence [facility] [address] [place] [address] Darvin Grajeda MD [address] [place] [address] LIBERTAD HYMAN AUTH AND MEDICAL RECORD Social [...] Time COVID19 07/06/2020 07/06/2020 07/27/2020 3:17 AM DIRECTOR OF DEVELOPMENT AND MARKETING R/O COVID19 06/13/2021 06/13/2021 06/13/2021 9:27 PM CDT documented as of this encounter Care Teams Go Cart Mechanic Relationship Specialty Start Date End Date Darvin Grajeda MD [address] [place] [address] PCP - General Family Practice 06/15/14 documented as of this encounter
--- OUTSIDE RECORDS SUMMARY | 2024-09-10 15:02 | XMS_ITS | Encounter Summary ---
Author Organization [facility] Address [address] [place] [address] Care Team Providers Care Wet Process Operator Name Role Phone Darvin Grajeda MD Primary Car e Provider Encounter Details Date Type Department Care Team (Late st Contact Info) Description 09/03/2024 E-Visit [place] [address] Endocrinology [facility] [place] [address] Mychart, Generic [place] [address] Social History Tobacco Use Types Packs/Day Years [...] on filedocumented in this encounter Care Teams Wet Process Operator Relationship Specialty Start Date End Date Darvin Grajeda MD [address] [place] [address] PCP - General Family Practice 06/15/14 documented as of this encounter
--- OUTSIDE RECORDS SUMMARY | 2024-09-10 15:02 | XMS_ITS | Clinical Summary ---
Author Organization [facility] Address [place], [place] [address] Care Team Providers Care Before And After School Daycare Worker Name Role Phone Clinic, No Pcp Or Primary Care Provider Unavaila ble Allergies Active Allergy Reactions Criticality Noted Date Comments [place] Other - Describe In Comment Field Unknown [...] Department Care Team Description 07/08/2024 1:30 PM MAILROOM MANAGER Office Visit [facility] [address] [place] [address] Iveth Prince DIRECTOR MARKETING ANALYTICS [facility] Visit 07/08/2024 Travel from [...] 05/14/2024 10:02 PM CDT Plan of Treatment Health Maintenance Due Date [...] patient's age to complete this topic Insurance [employer] [facility] REFERRAL Member Subscriber Plan / Payer (Ef fective 2024-Present) Name:Osei Hartman Member ID:[id number] Relation to Subscriber:Self Name:Osei Hartman Subscriber ID:[id number] Payer ID:Not on file Group ID:Not on file Type:Not on file Address: [facility] [place] BLUE CROSS OF NON-CO-ITS Care Teams Before And After School Daycare Worker Relationship Specialty Start Date End Date Clinic, No Pcp Or . PCP - General 05/14/24
--- OUTSIDE RECORDS SUMMARY | 2024-09-10 15:02 | XMS_ITS | Clinical Summary ---
Author Organization [facility] Address [address] [place] [address] Care Team Providers Care Glass Inserter Name Role Phone Unavailable Primary Care Provider Unavailabl e Source Comments Patient records contain information from all sites at [facility]. For routine questions regarding patient records, call [phone] during business hours, M-F 8:00 AM - 5:00 PM Central Time. Record requests for emergency care only can be directed to [phone] at any time.[facility] Allergies No known active allergies Medications [...] on file Legal Sex Male 11:46 AM CYBER INSTRUCTOR Gender Identity Not on file Sexual Orientation [...]
--- OUTSIDE RECORDS SUMMARY | 2024-09-10 15:02 | XMS_ITS | Encounter Summary ---
Author Organization [facility] Address [address] [place] [address] Care Team Providers Care Polysomnographer Name Role Phone Darvin Grajdea MD Primary Car e Provider Encounter Details Date Type Department Care Team (Late st Contact Info) Description 06/17/2014 Correspondence [facility] [address] [place] [address] Darvin Grajeda MD [address] [place] [address] DME INSTRUCTION DELIVERY Social History Tobacco Use [...] Time COVID19 07/06/2020 07/06/2020 07/27/2020 3:17 AM ROLL SCALE MAN R/O COVID19 06/13/2021 06/13/2021 06/13/2021 9:27 PM CDT documented as of this encounter Care Teams Polysomnographer Relationship Specialty Start Date End Date Darvin Grajeda MD [address] [place] [place] [address] PCP - General Family Practice 06/15/14 documented as of this encounter
--- OUTSIDE RECORDS SUMMARY | 2024-09-10 15:02 | XMS_ITS | Clinical Summary ---
Author Organization Formerly [facility] Address [address] [place] [address] Care Team Providers Care Building Maintenance Mechanic Name Role Phone Darvin Grajeda MD Primary Car e Provider Source Comments You are receiving this document as you are listed as the primary care provider,follow-up provider, or the patient has been referred to you for consultation.This is in compliance with the Medicare andWad[facility] Hospitalcaid EHR Incentive Program,which states Providers who transition their patient to another setting of careor provider of care or refers their patient to another provider of care shouldprovide summary care record for each transition of care or referral. [place] Allergies Active Allergy Reactions Criticality Noted Date Comments [place] (Diagnostic) Other, see comments 016 Almonds food. [...] Encounters Date Type Department Care Team Description 09/03/2024 E-Visit [facility] [address] Endocrinology [address] [place] [address] [place], Generic Provider 07/08/2024 Telephone [facility] [address] [place] [address] Darvin Grajeda MD QUESTIONS, GENERAL 07/07/2024 Telephone Physical Therapy at [address] [phone] Will Robertson, PT Other 07/07/2024 Telephone Physical Therapy at [address] [address] Mark Workman, PT No Show 07/03/2024 1:00 PM FURNITURE FINISHER Ancillary Procedure MRI at [address] [address] Darvin Grajeda MD 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) 06/25/2024 Telephone Physical Therapy at [address] [address] Mark Workman, PT No Show 06/23/2024 Telephone Physical Therapy at [address] [address] Irina Lewis, SUPERVISOR DOPING No Show 06/20/2024 1:30 PM FURNITURE FINISHER Therapy Physical Therapy at [address] [phone] Will Robertson, PT Lumbar pain (Primary Dx); Pain in both lower extremities 06/20/2024 Telephone [facility] [address] [place] [address] Darvin Grajeda MD REFERRAL REQUEST 06/20/2024 Telephone Physical Therapy at [address] [phone] Will Robertson, PT Post Visit Follow Up Phone Call 06/18/2024 10:30 AM FURNITURE FINISHER Therapy Physical Therapy at [facility] [address] [place] [address] Mark Workman, PT Lumbar pain (Primary Dx); Pain in both lower extremities 06/12/2024 11:00 AM CDT Therapy Physical Therapy at [facility] [address] [place] [address] Will Robertson, PT Lumbar pain (Primary Dx); Pain in both lower extremities from Last 3 Months Immunizations Name Administration Dates Next Due Meningococcal ACWY-TT (Menquadfi) 05/08/2022 Bexsero (Meningococcal Group B Vaccine) 02/27/2023 DTaP 03/07/2010, 9,02/07/2006,05/05,03/10/2005,01/13/2005 [id number] (Pediarix) 12/03/2008,04/14,03/10/2005,01/13 Flu Vac (3+ yrs) 07/28/2005,05/26/2005 Flu Vac Preserv Free (3+yrs) 07/28/2005,05/26/20 05 [id number] 07/05/2009 HepA Adult (19+ yrs) 03/07/2010,12/03/2008 HepB Ped/Adol (0-18 yrs) 12/03/2008,04/14,03/10/2005,01/13 Hib (ActHIB) 02/07/2006,03/10/2005,01/13/2005 Hib (PedvaxHIB) 02/07/2006,03/10/2005,01/13/2005 IPV (Polio) 12/03/2008, 5,03/10/2005,01/13 Influenza IIV4 (Quadrivalent ) 0.5mL (65394) 07/05/2009 MCV4 (Menactra) 03/01/2016 MCV4 Menveo 2m.+ [...] 36.9 C (98.5 F) 09/20/2021 9:48 AM FURNITURE FINISHER Respiratory Rate 22 03/13/2019 1:04 PM CDT Oxygen Saturation 99% 07/19/2016 10:10 AM FURNITURE FINISHER Inhaled Oxygen Concentration - - Weight 70.3 kg (155 lb) 06/04/2024 1:41 PM CDT Height 165.1 cm (5' 5) 09/13/2021 9:46 AM FURNITURE FINISHER Body Mass Index - - Plan of [...] WO IV CONT Routine 07/03/2024 1:04 PM FURNITURE FINISHER 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) BASIC METABOLIC PANEL Routine 03/05/2024 8:55 AM CDT Type 1 diabetes mellitus without complication (HRC) HGB A1C Routine 03/05/2024 8:55 AM CDT Type 1 diabetes mellitus without complication (HRC) LIPID PANEL & DIRECT LDL (IF NEEDED) Routine 09/03/2020 8:22 AM FURNITURE FINISHER Type I (juvenile type) diabetes mellitus without mention of complication, not stated as uncontrolled (HRC) from Last 3 Months or Most Recently Relevant to Health Maintenance Results * MR Lumbar Spine WO IV Cont (07/03/2024 1:04 PM FURNITURE FINISHER) Anatomical Region Laterality Modality Spine, L-Spine, Skeletal, MSK Ma gnetic Resonance 07/03/2024 1:04 PM FURNITURE FINISHER Narrative 07/04/2024 9:00 AM FURNITURE FINISHER EXAM: MR LUMBAR SPINE WO IV CONT LOCATION: [facility] DATE: 07/03/2024 INDICATION: Back pain, [...] MR LUMBAR SPINE WO IV CONT LOCATION: [facility] DATE: 07/03/2024 INDICATION: Back pain, [...] contact suggested traversing right S1 nerve root [id number] image 37 could correlate to right S1 [...] - 145 mmol/L 03/05/2024 11:48 AM T [place] [facility] Potassium 3.5 3.5 - 5.1 mmol/L 03/05/2024 11:48 AM [facility] Chloride 106 98 - 109 mmol/L 03/05/2024 11:48 AM T [facility] CO2 23 20 - 29 mmol/L 03/05/2024 11:48 AM T [facility] Anion Gap 12 6 - 16 mmol/L 03/05/2024 11:48 AM [facility] Calcium 9.4 8.4 - 10.4 mg/dL 03/05/2024 11:48 AM [facility] BUN 12 7 - 26 mg/dL 03/05/2024 11:48 AM T [facility] Creatinine 0.67(L) 0.73 - 1.18 mg/dL 03/05/2024 11:48 AM T [facility] Glucose 233(H) 70 - 100 mg/dL 03/05/2024 11:48 AM [facility] Comment:The given reference range is for the fasting state. Non-fasting reference range for glucose is 70 - 180 mg/dL. GFR, Estimated >60 >60 mL/min/1. 73m2 03/05/2024 11:48 AM [facility] Hours Fasting 0.0 8 - 12 Hours 03/05/2024 11:48 AM [facility] Blood Venipuncture / Unknown 03/05/2024 8:55 AM CDT 03/05/2024 8:55 AM T Darvin Grajeda MD LAB_ 1 [facility] [address] * (ABNORMAL) Hgb A1C (03/05/2024 8:55 AM CDT) Hemoglobin A1C 7.0(H) <=5.6 % 03/05/2024 12:10 PM CDT [facility] Estimated Average Glucose (Calc) 154 < 117 mg/dL 03/05/2024 12:10 PM CDT [facility] Comment:Estimated average gl ucose (eAG) converts A1c into glucose units (mg/dL) and estimates average glucose over the past approximately 3 months. The eAG reference interval (<117 mg/dL) corresponds to an A1c of <5.7%. Blood Venipuncture / Unknown 03/05/2024 8:55 AM CDT 03/05/2024 8:55 AM CDT Narrative [facility] - 03/05/2024 12:10 PM CDT For patients not previously diagnosed with diabetes: 5.7-6.4%: Increased risk for diabetes 6.5% and greater: Diagnostic for diabetes For patients diagnosed with diabetes: <8.0%: Goal of therapy for ages 18-75 Clinicians may recommend a higher or lower goal for specific individuals. Darvin Grajeda MD LAB_ 1 [facility] [address] [place] [address], [facility] * (ABNORMAL) Lipid Panel and Direct LDL(If Needed) (09/03/2020 8:22 AM FURNITURE FINISHER) Cholesterol 235(H) 0 - 199 mg/dL 09/03/2020 9:00 AM [facility] Triglyceride 162(H) <=149 mg/dL 09/03/2020 9:00 AM [facility] HDL Cholesterol 41 >=40 mg/dL 9:00 AM [facility] LDL, Calculated 162(H) <130 mg/dL 9:00 AM [facility] Non HDL Chol, Calculated 194(H) <=144 mg/dL 09/03/2020 9:00 AM [facility] Cholesterol/HDL Ratio 5.7 09/03/2020 9:00 AM [facility] Hours Fasting 14 09/03/2020 9:00 AM [facility] Blood Lab OP Venipunct ure / Unknown 09/03/2020 8:22 AM FURNITURE FINISHER 09/03/2020 8:26 AM FURNITURE FINISHER Darvin Grajeda MD LAB_ 1 [facility] [address] [place] [address], [facility] [phone] from Last 3 Months or Most Recently Relevant to Health Maintenance Care Teams Building Maintenance Mechanic Relationship Specialty Start Date End Date Darvin Grajeda MD [address] [place] [address] PCP - General Family Practice 06/15/14
--- OUTSIDE RECORDS SUMMARY | 2024-09-10 15:02 | XMS_ITS | Encounter Summary ---
Author Organization [facility] Address [address] [place] [address] Care Team Providers Care Assistant Maintenance Manager Name Role Phone Darvin Grajeda MD Primary Car e Provider Encounter Details Date Type Department Care Team (Late st Contact Info) Description 04/28/2014 Scanned History External to [facility], Provider [facility] Social History Tobacco Use Types Packs/Day [...] Time COVID19 07/06/2020 07/06/2020 07/27/2020 3:17 AM PROGRAM FACILITATOR R/O COVID19 06/13/2021 06/13/2021 06/13/2021 9:27 PM CDT documented as of this encounter Care Teams Assistant Maintenance Manager Relationship Specialty Start Date End Date Darvin Grajeda MD [address] [place] [address] PCP - General Family Practice 06/15/14 documented as of this encounter
--- OUTSIDE RECORDS SUMMARY | 2024-09-10 15:02 | XMS_ITS | Encounter Summary ---
Author Organization [facility] Address [address] [place] [address] Care Team Providers Care Plasma Specialist Name Role Phone Darvin Grajeda MD Primary Car e Provider Encounter Details Date Type Department Care Team (Late st Contact Info) Description 06/17/2014 Correspondence None No Primary/Referring, Phy EQUIPMENT CONTROL CLERK HEAD TICKET Social History Tobacco Use Types Packs/Day [...] Time COVID19 07/06/2020 07/06/2020 07/27/2020 3:17 AM ASSOCIATE PROJECT MANAGER R/O COVID19 06/13/2021 06/13/2021 06/13/2021 9:27 PM CDT documented as of this encounter Care Teams Plasma Specialist Relationship Specialty Start Date End Date Darvin Grajeda MD [address] [place] [address] PCP - General Family Practice 06/15/14 documented as of this encounter
--- OUTSIDE RECORDS SUMMARY | 2024-09-10 15:02 | XMS_ITS | Encounter Summary ---
Author Organization [facility] Address [address] [place] [address] Care Team Providers Care Hotel Reservation Agent Name Role Phone Darvin Grajeda MD Primary Car e Provider Encounter Details Date Type Department Care Team (Late st Contact Info) Description 02/07/2013 Scanned History External to Transferred Record, Provider [facility] Social History Tobacco Use Types Packs/Day Years Used Date Smoking Tobacco: Never Assessed Sex and Gender Information Value Date Recorded Sex Assigned at Not on file Gender Identity Not on file Sexual Orientation Not on file documented as of this encounter Progress Notes * Transferred Record, Provider - 02/07/2013 12:00 AM CDT N MAKER documented in this encounter Plan of Treatment Not on file documented as of this encounter Visit Diagnoses Not on filedocumented in this encounter Additional Health Concerns Infection Onset Date Last Indicated Resolved Time COVID19 07/06/2020 07/06/2020 07/27/2020 3:17 AM STAIN MAKER R/O COVID19 06/13/2021 06/13/2021 06/13/2021 9:27 PM CDT documented as of this encounter Care Teams Hotel Reservation Agent Relationship Specialty Start Date End Date Darvin Grajeda MD [address] [place] [address] PCP - General Family Practice 06/15/14 documented as of this encounter
--- OUTSIDE RECORDS SUMMARY | 2024-09-10 15:02 | XMS_ITS | Encounter Summary ---
Author Organization [facility] Address [address] [place] [address] Care Team Providers Care Folder Tier Name Role Phone Darvin Grajeda MD Primary [...] Time COVID19 07/06/2020 07/06/2020 07/27/2020 3:17 AM FROZEN PIE MAKER R/O COVID19 06/13/2021 06/13/2021 06/13/2021 9:27 PM CDT documented as of this encounter Care Teams Folder Tier Relationship Specialty Start Date End Date Darvin Grajeda MD [address] [place] [address] PCP - General Family Practice 06/15/14 documented as of this encounter
--- OUTSIDE RECORDS SUMMARY | 2024-09-10 15:02 | XMS_ITS | Encounter Summary ---
Author Organization [facility] Address [address] [place] [address] Care Team Providers Care Machine Made Shoe Unit Worker Name Role Phone Darvin Grajeda MD Primary Car e Provider Reason for Visit * Reason Comments QUESTIONS, GENERAL Encounter Details Date Type Department Care Team (Late st Contact Info) Description 07/08/2024 Telephone [facility] [address] [employer] [place], [place] [phone] Darvin Grajeda MD [address] [place], [place] [phone] QUESTIONS, GENERAL Social History Tobacco Use Types [...] I can help you with today? No METER OPERATOR documented in this encounter Plan of Treatment Not on file documented as of this encounter Visit Diagnoses Not on filedocumented in this encounter Care Teams Machine Made Shoe Unit Worker Relationship Specialty Start Date End Date Darvin Grajeda MD [address] [place] [address] PCP - General Family Practice 06/15/14 documented as of this encounter
--- OUTSIDE RECORDS SUMMARY | 2024-09-10 15:02 | XMS_ITS | Encounter Summary ---
Author Organization [facility] Address [address] [place] [address] Care Team Providers Care Model Builder Name Role Phone Darvin Grajeda MD Primary Car e Provider Encounter Details Date Type Department Care Team (Late st Contact Info) Description 07/16/2015 Correspondence [facility] [address] [place] [address] Darvin Grajeda MD [address] [place] [address] SCHOOL ADMINISTRATON OF MEDICATION Social History Tobacco [...] Time COVID19 07/06/2020 07/06/2020 07/27/2020 3:17 AM GYN PHYSICIAN R/O COVID19 06/13/2021 06/13/2021 06/13/2021 9:27 PM CDT documented as of this encounter Care Teams Model Builder Relationship Specialty Start Date End Date Darvin Grajeda MD [address] [place] [address] PCP - General Family Practice 06/15/14 documented as of this encounter
--- OUTSIDE RECORDS SUMMARY | 2024-09-10 15:02 | XMS_ITS | Encounter Summary ---
Author Organization [facility] Address [address] [place] [address] Care Team Providers Care Straight Knife Machine Cutter Name Role Phone Darvin Grajeda MD Primary Car e Provider Encounter Details Date Type Department Care Team (Late st Contact Info) Description 06/17/2014 Correspondence [facility] [address] [place] [address] Darvin Grajeda MD [address] [place] [address] EQUIPMENT CUT OFF MACHINE UNLOADER TICKET Social History Tobacco Use Types Packs/Day [...] Time COVID19 07/06/2020 07/06/2020 07/27/2020 3:17 AM FIELD RESEARCH ASSISTANT R/O COVID19 06/13/2021 06/13/2021 06/13/2021 9:27 PM CDT documented as of this encounter Care Teams Straight Knife Machine Cutter Relationship Specialty Start Date End Date Darvin Grajeda MD [address] [place] [address] PCP - General Family Practice 06/15/14 documented as of this encounter
--- OUTSIDE RECORDS SUMMARY | 2024-09-10 15:02 | XMS_ITS | Encounter Summary ---
Author Organization [facility] Address [address] [place] [address] Care Team Providers Care Miller Head Name Role Phone Darvin Grajeda MD Primary Car e Provider Encounter Details Date Type Department Care Team (Late st Contact Info) Description 04/22/2016 Correspondence External to External, [place] [address] AUTH TO ADMINISTER RX AT SCHOOL Social [...] Time COVID19 07/06/2020 07/06/2020 07/27/2020 3:17 AM SPEEDER FRAME TENDER R/O COVID19 06/13/2021 06/13/2021 06/13/2021 9:27 PM CDT documented as of this encounter Care Teams Miller Head Relationship Specialty Start Date End Date Darvin Grajeda MD [address] [place] [address] PCP - General Family Practice 06/15/14 documented as of this encounter
--- OUTSIDE RECORDS SUMMARY | 2024-09-10 15:02 | XMS_ITS | Encounter Summary ---
Author Organization [facility] Address [address] [place] [address] Care Team Providers Care Pyrometallurgical Engineer Name Role Phone Darvin Grajeda MD Primary Car e Provider Encounter Details Date Type Department Care Team (Late st Contact Info) Description 09/10/[address] [facility] Provider IMM RECORD Social History Tobacco Use Types Packs/Day Years Used Date Smoking Tobacco: Never Assessed Sex and Gender Information Value Date Recorded Sex Assigned at Not on file Gender Identity Not on file Sexual Orientation Not on file documented as of this encounter Progress Notes * [facility], Provider - 09/10/2013 12:00 AM CST HOLOGIST INDUSTRIAL ORGANIZATIONAL documented in this encounter Plan of Treatment Not on file documented as of this encounter Visit Diagnoses Not on filedocumented in this encounter Additional Health Concerns Infection Onset Date Last Indicated Resolved Time COVID19 07/06/2020 07/06/2020 07/27/2020 3:17 AM PSYCHOLOGIST INDUSTRIAL ORGANIZATIONAL R/O COVID19 06/13/2021 06/13/2021 06/13/2021 9:27 PM CDT documented as of this encounter Care Teams Pyrometallurgical Engineer Relationship Specialty Start Date End Date Darvin Grajeda MD [address] [place] [address] PCP - General Family Practice 06/15/14 documented as of this encounter
== END 2024-09-10 09:17 | disposition home or self-care (01) ==
PROVIDERS: Emergency Provider Family Medicine; PCP Family Medicine
DX: J06.9 Acute upper respiratory infection, unspecified (principal); R09.81 Nasal congestion
CPT/HCPCS: 87631; 99283

== ENCOUNTER 2024-09-14 20:36 | Outpatient (CLI) | payer SELFPAY | END 2024-09-14 20:37 | disposition home or self-care (01) | LOC: AMB 09-23 06:39 | PROVIDERS: PCP Family Medicine; Visit Provider Family Medicine | DX: S09.90XA Unspecified injury of head, initial encounter (principal); V40.3XXA Unspecified car occupant injured in collision with pedestrian or animal in nontraffic accident, initial encounter; Y92.410 Unspecified street and highway as the place of occurrence of the external cause | CPT/HCPCS: A0998 ==

== ENCOUNTER 2024-09-14 22:03 | Emergency (ER) | payer BC, SELFPAY ==
--- OUTSIDE RECORDS SUMMARY | 2024-09-14 22:04 | XMS_ITS | Encounter Summary ---
Author Organization [facility] Address [address] [place] [address] Care Team Providers Care Architectural Model Maker Name Role Phone Darvin Grajeda MD Primary Car e Provider Encounter Details Date Type Department Care Team (Late st Contact Info) Description 04/22/2016 Correspondence External to External, [place] [address] AUTH TO ADMINISTER RX AT SCHOOL Social [...] Time COVID19 07/06/2020 07/06/2020 07/27/2020 3:17 AM MACHINE HOSTLER R/O COVID19 06/13/2021 06/13/2021 06/13/2021 9:27 PM CDT documented as of this encounter Care Teams Architectural Model Maker Relationship Specialty Start Date End Date Darvin Grajeda MD [address] [place] [address] PCP - General Family Practice 06/15/14 documented as of this encounter
--- OUTSIDE RECORDS SUMMARY | 2024-09-14 22:04 | XMS_ITS | Encounter Summary ---
Author Organization [facility] Address [address] [place] [address] Care Team Providers Care Security Program Manager Name Role Phone Darvin Grajeda MD Primary Car e Provider Encounter Details Date Type Department Care Team (Late st Contact Info) Description 02/26/2017 Correspondence [facility] [address] [place] [address] Darvin Grajeda MD [address] [place] [address] LIBERTAD HYMAN AUTH AND MEDICAL RECORD Social [...] Time COVID19 07/06/2020 07/06/2020 07/27/2020 3:17 AM NEWS DIRECTOR R/O COVID19 06/13/2021 06/13/2021 06/13/2021 9:27 PM CDT documented as of this encounter Care Teams Security Program Manager Relationship Specialty Start Date End Date Darvin Grajeda MD [address] [place] [address] PCP - General Family Practice 06/15/14 documented as of this encounter
--- OUTSIDE RECORDS SUMMARY | 2024-09-14 22:05 | XMS_ITS | Encounter Summary ---
Author Organization [facility] Address [address] [place] [address] Care Team Providers Care Gas Station Operator Name Role Phone Darvin Grajeda MD [...] COVID19 07/06/2020 07/06/2020 07/27/2020 3:17 AM ASSOCIATE DESIGNER R/O COVID19 06/13/2021 06/13/2021 06/13/2021 9:27 PM CDT documented as of this encounter Care Teams Gas Station Operator Relationship Specialty Start Date End Date Darvin Grajeda MD [address] [place] [address] PCP - General Family Practice 06/15/14 documented as of this encounter
--- OUTSIDE RECORDS SUMMARY | 2024-09-14 22:05 | XMS_ITS | Encounter Summary ---
Author Organization [facility] Address [address] [place] [address] Care Team Providers Care Engravings Polisher Name Role Phone Darvin Grajeda MD Primary Car e Provider Encounter Details Date Type Department Care Team (Late st Contact Info) Description 06/17/[address] [facility] [address] [place] [address] Darvin Grajeda MD [address] [place] [address] EQUIPMENT VAULT INSTALLER TICKET Social History Tobacco Use Types Packs/Day [...] Time COVID19 07/06/2020 07/06/2020 07/27/2020 3:17 AM COMPANY TANKER TRUCK DRIVER R/O COVID19 06/13/2021 06/13/2021 06/13/2021 9:27 PM CDT documented as of this encounter Care Teams Engravings Polisher Relationship Specialty Start Date End Date Darvin Grajeda MD [address] [place] [address] PCP - General Family Practice 06/15/14 documented as of this encounter
--- OUTSIDE RECORDS SUMMARY | 2024-09-14 22:05 | XMS_ITS | Encounter Summary ---
Author Organization [facility] Address [address] [place] [address] Care Team Providers Care Asset Manager Name Role Phone Darvin Grajeda MD Primary Car e Provider Reason for Visit * Reason Comments QUESTIONS, GENERAL Encounter Details Date Type Department Care Team (Late st Contact Info) Description 07/08/2024 Telephone [facility] [address] [employer] [place], [place] [phone] Darvin Grajeda MD [address] [employer] [place], [place] [phone] QUESTIONS, GENERAL Social History Tobacco Use Types [...] I can help you with today? No RUCTIONAL COACH documented in this encounter Plan of Treatment Not on file documented as of this encounter Visit Diagnoses Not on filedocumented in this encounter Care Teams Asset Manager Relationship Specialty Start Date End Date Darvin Grajeda MD [address] [place] [address] PCP - General Family Practice 06/15/14 documented as of this encounter
--- OUTSIDE RECORDS SUMMARY | 2024-09-14 22:05 | XMS_ITS | Encounter Summary ---
Author Organization [facility] Address [address] [place] [address] Care Team Providers Care Printing Agent Name Role Phone Darvin Grajeda MD Primary Car e Provider Encounter Details Date Type Department Care Team (Late st Contact Info) Description 06/17/2014 Correspondence [facility] [address] [place] [address] Darvin Grajeda MD [address] [place] [address] DME INSTRUCTION DELIVERY Social History Tobacco Use [...] Time COVID19 07/06/2020 07/06/2020 07/27/2020 3:17 AM INVESTMENT BANKING ANALYST R/O COVID19 06/13/2021 06/13/2021 06/13/2021 9:27 PM CDT documented as of this encounter Care Teams Printing Agent Relationship Specialty Start Date End Date Darvin Grajeda MD [address] [place] [address] PCP - General Family Practice 06/15/14 documented as of this encounter
--- OUTSIDE RECORDS SUMMARY | 2024-09-14 22:05 | XMS_ITS | Clinical Summary ---
Author Organization [facility] Address [place], [place] [address] Care Team Providers Care Technical Editor Name Role Phone Clinic, No Pcp Or Primary Care Provider Unavaila ble Allergies Active Allergy Reactions Criticality Noted Date Comments [place] Other - Describe In Comment Field Unknown [...] Department Care Team Description 07/08/2024 1:30 PM FINISH MENDER Office Visit [facility] [address] [place] [address] Iveth Prince [facility] Visit 07/08/2024 [...] drink = 0.6 oz pur e alcohol) Interpersonal Safety Answer Date Record ed Are you being hit, kicked, p ushed or yelled at (see row info)? No 05/14/2024 Interpersonal Safety Abuse 12 - 18 Not on file 05/14/2024 Interpersonal Safety Ambulatory Vulnerability No t on file 05/14/2024 Sex and Gender Information Value Date Recorded [...] ag e 18-79 2022 COVID-19 vaccine series (2023- season) 2024 04/11/2021, 03/11/2021 Influenza for age 9-49 04/13/2024 Meningococcal series for age 11-21 Aged Out No longer eligible b ased on patient's age to complete this topic Pneumococcal series for age 6-49 Aged Out No longer eligible b ased on patient's age to complete this topic Insurance [facility] [place] REFERRAL Member Subscriber Plan / Payer (Ef fective 2024-Present) Name:Osei Hartman Member ID:[id number] Relation to Subscriber:Self Name:Osei Hartman Subscriber ID:[id number] Payer ID:Not on file Group ID:Not on file Type:Not on file Address: FOR [facility] OF [facility] [address] Care Teams Technical Editor Relationship Specialty Start Date End Date Clinic, No Pcp Or . PCP - General 05/14/24
--- OUTSIDE RECORDS SUMMARY | 2024-09-14 22:05 | XMS_ITS | Encounter Summary ---
Author Organization [facility] Address [address] [place] [address] Care Team Providers Care Tabulating Machine Mechanic Name Role Phone Darvin Grajeda MD Primary Car e Provider Encounter Details Date Type Department Care Team (Late st Contact Info) Description 09/10/2013 [facility] IMM RECORD Social History Tobacco Use Types Packs/Day Years Used Date Smoking Tobacco: Never Assessed Sex and Gender Information Value Date Recorded Sex Assigned at Not on file Gender Identity Not on file Sexual Orientation Not on file documented as of this encounter Progress Notes * [facility], Provider - 09/10/2013 12:00 AM CST EDUCATOR documented in this encounter Plan of Treatment Not on file documented as of this encounter Visit Diagnoses Not on filedocumented in this encounter Additional Health Concerns Infection Onset Date Last Indicated Resolved Time COVID19 07/06/2020 07/06/2020 07/27/2020 3:17 AM LIFE EDUCATOR R/O COVID19 06/13/2021 06/13/2021 06/13/2021 9:27 PM CDT documented as of this encounter Care Teams Tabulating Machine Mechanic Relationship Specialty Start Date End Date Darvin Grajeda MD [address] [place] [address] PCP - General Family Practice 06/15/14 documented as of this encounter
--- OUTSIDE RECORDS SUMMARY | 2024-09-14 22:05 | XMS_ITS | Clinical Summary ---
Author Organization [facility] Address [address] [place] [address] Care Team Providers Care Artificial Snow Making Machine Operator Name Role Phone Unavailable Primary Care Provider Unavailabl e Source Comments Patient records contain information from all sites at [facility]. For routine questions regarding patient records, call [phone] during business hours, M-F 8:00 AM - 5:00 PM Central Time. Record requests for emergency care only can be directed to [phone] at any time.[facility] Allergies No known active allergies Medications glucagon [...] on file Legal Sex Male 11:46 AM METHODS ENGINEER Gender Identity Not on file Sexual Orientation [...]
--- OUTSIDE RECORDS SUMMARY | 2024-09-14 22:05 | XMS_ITS | Encounter Summary ---
Author Organization [facility] Address [address] [place] [address] Care Team Providers Care Pickers Material Handlers Name Role Phone Darvin Grajeda MD Primary Car e Provider Encounter Details Date Type Department Care Team (Late st Contact Info) Description 02/07/2013 Scanned History External to Transferred Record, [facility] Social History Tobacco Use Types Packs/Day Years Used Date Smoking Tobacco: Never Assessed Sex and Gender Information Value Date Recorded Sex Assigned at Not on file Gender Identity Not on file Sexual Orientation Not on file documented as of this encounter Progress Notes * Transferred Record, Provider - 02/07/2013 12:00 AM CDT ULATION CLERK documented in this encounter Plan of Treatment Not on file documented as of this encounter Visit Diagnoses Not on filedocumented in this encounter Additional Health Concerns Infection Onset Date Last Indicated Resolved Time COVID19 07/06/2020 07/06/2020 07/27/2020 3:17 AM CALCULATION CLERK R/O COVID19 06/13/2021 06/13/2021 06/13/2021 9:27 PM CDT documented as of this encounter Care Teams Pickers Material Handlers Relationship Specialty Start Date End Date Darvin Grajeda MD [address] [place] [address] PCP - General Family Practice 06/15/14 documented as of this encounter
--- OUTSIDE RECORDS SUMMARY | 2024-09-14 22:05 | XMS_ITS | Clinical Summary ---
Author Organization [facility] Address [address] [place] [address] Care Team Providers Care Wind Energy Technician Name Role Phone Darvin Grajeda MD Primary Car e Provider Source Comments You are receiving this document as you are listed as the primary care provider,follow-up provider, or the patient has been referred to you for consultation.This is in compliance with the Medicare and[facility] Systemcaid EHR Incentive Program,which states Providers who transition their patient to another setting of careor provider of care or refers their patient to another provider of care shouldprovide summary care record for each transition of care or referral. Micromuscle Allergies Active Allergy Reactions Criticality Noted Date Comments [place] (Diagnostic) Other, see comments 016 Almonds food. [...] Type Department Care Team Description 09/03/2024 E-Visit [facility] [address] Endocr[address] [place] [address] [place], Generic Provider 07/08/2024 Telephone [facility] [address] [place] [phone] Darvin Grajeda MD QUESTIONS, GENERAL 07/07/2024 Telephone Physical Therapy at [address] [phone] Will Robertson, PT Other 07/07/2024 Telephone Physical Therapy at [address] [address] Mark Workman, PT No Show 07/03/2024 1:00 PM CHANGE NUMBER OPERATOR Ancillary Procedure MRI at [address] [address] Darvin Grajeda MD 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) 06/25/2024 Telephone Physical Therapy at [address] [address] Mark Workman, PT No Show 06/23/2024 Telephone Physical Therapy at [address] [address] Irina Lewis, WIRE PREPARATION WORKER No Show 06/20/2024 1:30 PM CHANGE NUMBER OPERATOR Therapy Physical Therapy at [address] [phone] Will Robertson, PT Lumbar pain (Primary Dx); Pain in both lower extremities 06/20/2024 Telephone [facility] [address] [place] [address] Darvin Grajeda MD REFERRAL REQUEST 06/20/2024 Telephone Physical Therapy at [address] [phone] Will Robertson, PT Post Visit Follow Up Phone Call 06/18/2024 10:30 AM CHANGE NUMBER OPERATOR Therapy Physical Therapy at [facility] [place] [address] [place] [address] Mark Workman, PT Lumbar pain (Primary Dx); Pain in both lower extremities from Last 3 Months Immunizations Name Administration Dates Next Due Meningococcal [id number] (Menquadfi) 05/08/2022 Bexsero (Meningococcal Group B Vaccine) 02/27/2023 DTaP 03/07/2010, 9,02/07/2006,05/05,03/10/2005,01/13/2005 [id number] (Pediarix) 12/03/2008,04/14,03/10/2005,01/13 Flu Vac (3+ yrs) 07/28/2005,05/26/2005 Flu Vac Preserv Free (3+yrs) 07/28/2005,05/26/20 05 [id number] 07/05/2009 HepA Adult (19+ yrs) 03/07/2010,12/03/2008 HepB Ped/Adol (0-18 yrs) 12/03/2008,04/14,03/10/2005,01/13 Hib (ActHIB) 02/07/2006,03/10/2005,01/13/2005 Hib (PedvaxHIB) 02/07/2006,03/10/2005,01/13/2005 IPV (Polio) 12/03/2008, 5,03/10/2005,01/13 Influenza IIV4 (Quadrivalent ) 0.5mL (33211) 07/05/2009 MCV4 (Menactra) 03/01/2016 MCV4 Menveo 2m.+ (two vial) 03/01/2016 MMR 03/29/2010,11/01/2005 PCV13 (Prevnar) 11/01/2005, 5,03/10/2005,01/13 Pfizer Monovalent 12+ Purple Top 04/11/2021,02/12 Pneumococcal 7, PED 11/01/2005, 5,03/10/2005,01/13 Tdap 03/01/2016 [...] 36.9 C (98.5 F) 09/20/2021 9:48 AM CHANGE NUMBER OPERATOR Respiratory Rate 22 03/13/2019 1:04 PM CDT Oxygen Saturation 99% 07/19/2016 10:10 AM CHANGE NUMBER OPERATOR Inhaled Oxygen Concentration - - Weight 70.3 kg (155 lb) 06/04/2024 1:41 PM CDT Height 165.1 cm (5' 5) 09/13/2021 9:46 AM CHANGE NUMBER OPERATOR Body Mass Index - - Plan [...] 2022 9, 02/26/2017, 03/01/2016 COVID-19 Vaccine (3 - 2023-2 5 season) 2024 04/11/2021, 03/11/2021 Influenza [...] WO IV CONT Routine 07/03/2024 1:04 PM CHANGE NUMBER OPERATOR 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) BASIC METABOLIC PANEL Routine 03/05/2024 8:55 AM CDT Type 1 diabetes mellitus without complication (HRC) HGB A1C Routine 03/05/2024 8:55 AM CDT Type 1 diabetes mellitus without complication (HRC) LIPID PANEL & DIRECT LDL (IF NEEDED) Routine 09/03/2020 8:22 AM CHANGE NUMBER OPERATOR Type I (juvenile type) diabetes mellitus without mention of complication, not stated as uncontrolled (HRC) from Last 3 Months or Most Recently Relevant to Health Maintenance Results * MR Lumbar Spine WO IV Cont (07/03/2024 1:04 PM CHANGE NUMBER OPERATOR) Anatomical Region Laterality Modality Spine, L-Spine, Skeletal, MSK Ma gnetic Resonance 07/03/2024 1:04 PM CHANGE NUMBER OPERATOR Narrative 07/04/2024 9:00 AM CHANGE NUMBER OPERATOR EXAM: MR LUMBAR SPINE WO IV CONT LOCATION: [facility] DATE: 07/03/2024 INDICATION: Back pain, worse [...] MR LUMBAR SPINE WO IV CONT LOCATION: [facility] DATE: 07/03/2024 INDICATION: Back pain, worse [...] contact suggested traversing right S1 nerve root [id number] image 37 could correlate to right S1 [...] 136 - 145 mmol/L 03/05/2024 11:48 AM [facility] Potassium 3.5 3.5 - 5.1 mmol/L 03/05/2024 11:48 AM [facility] Chloride 106 98 - 109 mmol/L 03/05/2024 11:48 AM [facility] CO2 23 20 - 29 mmol/L 03/05/2024 11:48 AM [facility] Anion Gap 12 6 - 16 mmol/L 03/05/2024 11:48 AM [facility] Calcium 9.4 8.4 - 10.4 mg/dL 03/05/2024 11:48 AM [facility] BUN 12 7 - 26 mg/dL 03/05/2024 11:48 AM [facility] Creatinine 0.67(L) 0.73 - 1.18 mg/dL 03/05/2024 11:48 AM [facility] Glucose 233(H) 70 - 100 mg/dL 03/05/2024 11:48 AM [facility] Comment:The given reference range is for the fasting state. Non-fasting reference range for glucose is 70 - 180 mg/dL. GFR, Estimated >60 >60 mL/min/1. 73m2 03/05/2024 11:48 AM [facility] Hours Fasting 0.0 8 - 12 Hours 03/05/2024 11:48 AM [facility] Blood Venipuncture / Unknown 03/05/2024 8:55 AM CDT 03/05/2024 8:55 AM T Darvin Grajeda MD LAB_ [address] [facility] [address] * (ABNORMAL) Hgb A1C (03/05/2024 8:55 AM T) Hemoglobin A1C 7.0(H) <=5.6 % 03/05/2024 12:10 PM [facility] Estimated Average Glucose (Calc) 154 < 117 mg/dL 03/05/2024 12:[address] [facility] Comment:Estimated average gl ucose (eAG) converts A1c into glucose units (mg/dL) and estimates average glucose over the past approximately 3 months. The eAG reference interval (<117 mg/dL) corresponds to an A1c of <5.7%. Blood Venipuncture / Unknown 03/05/2024 8:55 AM CDT 03/05/2024 8:[address] [facility] - 03/05/2024 12:10 PM CDT For patients not previously diagnosed with diabetes: 5.7-6.4%: Increased risk for diabetes 6.5% and greater: Diagnostic for diabetes For patients diagnosed with diabetes: <8.0%: Goal of therapy for ages 18-75 Clinicians may recommend a higher or lower goal for specific individuals. Darvin Grajeda MD LAB_ 1 [facility] [address] * (ABNORMAL) Lipid Panel and Direct LDL(If Needed) (09/03/2020 8:22 AM CHANGE NUMBER OPERATOR) Cholesterol 235(H) 0 - 199 mg/dL 09/03/2020 9:00 AM [facility] Triglyceride 162(H) <=149 mg/dL 09/03/2020 9:00 AM [facility] HDL Cholesterol 41 >=40 mg/dL 9:00 AM [facility] LDL, Calculated 162(H) <130 mg/dL 9:00 AM [facility] Non HDL Chol, Calculated 194(H) <=144 mg/dL 09/03/2020 9:00 AM [facility] Cholesterol/HDL Ratio 5.7 09/03/2020 9:00 AM [facility] Hours Fasting 14 09/03/2020 9:00 AM [facility] Blood Lab OP Venipunct ure / Unknown 09/03/2020 8:22 AM CHANGE NUMBER OPERATOR 09/03/2020 8:26 AM CHANGE NUMBER OPERATOR Darvin Grajeda MD LAB_ [address] [address], [facility] [phone] from Last 3 Months or Most Recently Relevant to Health Maintenance Care Teams Wind Energy Technician Relationship Specialty Start Date End Date Darvin Grajeda MD [address] [place] [address] PCP - General Family Practice 06/15/14
--- OUTSIDE RECORDS SUMMARY | 2024-09-14 22:05 | XMS_ITS | Encounter Summary ---
Author Organization [facility] Address [address] [place] [address] Care Team Providers Care Manager Cancer Name Role Phone Darvin Grajeda MD Primary Car e Provider Encounter Details Date Type Department Care Team (Late st Contact Info) Description 06/17/2014 Correspondence None No Primary/Referring, Phy EQUIPMENT ROLL FINISHER TICKET Social History Tobacco Use Types Packs/Day [...] Time COVID19 07/06/2020 07/06/2020 07/27/2020 3:17 AM CAFE WORKER R/O COVID19 06/13/2021 06/13/2021 06/13/2021 9:27 PM CDT documented as of this encounter Care Teams Manager Cancer Relationship Specialty Start Date End Date Darvin Grajeda MD [address] [place] [address] PCP - General Family Practice 06/15/14 documented as of this encounter
--- OUTSIDE RECORDS SUMMARY | 2024-09-14 22:05 | XMS_ITS | Encounter Summary ---
Author Organization [facility] Address [address] [place] [address] Care Team Providers Care Cut Out Press Operator Name Role Phone Darvin Grajeda MD Primary Car e Provider Encounter Details Date Type Department Care Team (Late st Contact Info) Description 09/03/2024 E-Visit [place] [address] Endocrinology [facility] [place] [address] Mychart, [place] [address] Social History Tobacco Use Types Packs/Day Years [...] on filedocumented in this encounter Care Teams Cut Out Press Operator Relationship Specialty Start Date End Date Darvin Grajeda MD [address] [place] [address] PCP - General Family Practice 06/15/14 documented as of this encounter
--- OUTSIDE RECORDS SUMMARY | 2024-09-14 22:05 | XMS_ITS | Encounter Summary ---
Author Organization [facility] Address [address] [place] [address] Care Team Providers Care Stamp Maker Name Role Phone Darvin Grajeda MD Primary Car e Provider Encounter Details Date Type Department Care Team (Late st Contact Info) Description 07/16/[address] [facility] [address] [place] [address] Darvin Grajeda MD [address] [place] [address] SCHOOL ADMINISTRATON OF MEDICATION Social History Tobacco [...] Time COVID19 07/06/2020 07/06/2020 07/27/2020 3:17 AM SOCIAL WORKER MASTERS R/O COVID19 06/13/2021 06/13/2021 06/13/2021 9:27 PM CDT documented as of this encounter Care Teams Stamp Maker Relationship Specialty Start Date End Date Darvin Grajeda MD [address] [place] [address] PCP - General Family Practice 06/15/14 documented as of this encounter
--- OUTSIDE RECORDS SUMMARY | 2024-09-14 22:05 | XMS_ITS | Encounter Summary ---
Author Organization [facility] Address [address] [place] [address] Care Team Providers Care Speech Correction Assistant Name Role Phone Darvin Grajeda MD Primary Car e Provider Encounter Details Date Type Department Care Team (Late st Contact Info) Description 04/28/2014 Scanned History External to [facility], Provider [facility] Social History Tobacco Use Types [...] Time COVID19 07/06/2020 07/06/2020 07/27/2020 3:17 AM MERCURY CRACKING TESTER R/O COVID19 06/13/2021 06/13/2021 06/13/2021 9:27 PM CDT documented as of this encounter Care Teams Speech Correction Assistant Relationship Specialty Start Date End Date Darvin Grajeda MD [address] [place] [address] PCP - General Family Practice 06/15/14 documented as of this encounter
[2024-09-14 22:06] VITALS: BP 129/82; PULSE 81; RESP 16; TEMP 36.1; O2SAT 97; BMI 23.4
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
--- OUTSIDE RECORDS SUMMARY | 2024-09-14 22:25 | XMS_ITS | Clinical Summary ---
Author Organization [facility] Address [address] [place] [address] Care Team Providers Care Auricular Detoxification Specialist Name Role Phone Unavailable Primary Care Provider Unavailabl e Source Comments Patient records contain information from all sites at [facility]. For routine questions regarding patient records, call [phone] during business hours, M-F 8:00 AM - 5:00 PM Central Time. 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
--- OUTSIDE RECORDS SUMMARY | 2024-09-14 22:25 | XMS_ITS | Encounter Summary ---
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
--- OUTSIDE RECORDS SUMMARY | 2024-09-14 22:25 | XMS_ITS | Encounter Summary ---
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
--- OUTSIDE RECORDS SUMMARY | 2024-09-14 22:25 | XMS_ITS | Encounter Summary ---
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
--- OUTSIDE RECORDS SUMMARY | 2024-09-14 22:25 | XMS_ITS | Encounter Summary ---
Author Organization [facility] Address [address] [place] [address] Care Team Providers Care Nut Chopper Name Role Phone Darvin Grajeda MD Primary Car e Provider Reason for Visit * Reason Comments QUESTIONS, GENERAL Encounter Details Date Type Department Care Team (Late st Contact Info) Description 07/08/2024 Telephone [facility] [address] [place], [place] [phone] Darvin Grajeda MD [address] [place], [place] [phone] QUESTIONS, GENERAL Social History Tobacco Use Types [...] I can help you with today? No DAYCARE PROVIDER documented in this encounter Plan of Treatment Not on file documented as of this encounter Visit Diagnoses Not on filedocumented in this encounter Care Teams Nut Chopper Relationship Specialty Start Date End Date Darvin Grajeda MD [address] [place] [address] PCP - General Family Practice 06/15/14 documented as of this encounter
--- OUTSIDE RECORDS SUMMARY | 2024-09-14 22:25 | XMS_ITS | Encounter Summary ---
Author Organization [facility] Address [address] [place] [address] Care Team Providers Care Ticket Collector Or Usher Name Role Phone Darvin Grajeda MD Primary Car e Provider Encounter Details Date Type Department Care Team (Late st Contact Info) Description 09/10/2013 [facility], Provider IMM RECORD Social History Tobacco Use Types Packs/Day Years Used Date Smoking Tobacco: Never Assessed Sex and Gender Information Value Date Recorded Sex Assigned at Not on file Gender Identity Not on file Sexual Orientation Not on file documented as of this encounter Progress Notes * [facility], Provider - 09/10/2013 12:00 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
--- OUTSIDE RECORDS SUMMARY | 2024-09-14 22:25 | XMS_ITS | Clinical Summary ---
Author Organization [facility] Address [address] [place] [address] Care Team Providers Care Surgical Orderly Name Role Phone Darvin Grajeda MD Primary Car e Provider Source Comments You are receiving this document as you are listed as the primary care provider,follow-up provider, or the patient has been referred to you for consultation.This is in compliance with the Medicare and[facility] Cent[facility]aid EHR Incentive Program,which states Providers who transition their patient to another setting of careor provider of care or refers their patient to another provider of care shouldprovide summary care record for each transition of care or referral. [employer] Allergies Active Allergy Reactions Criticality Noted Date Comments Eden (Diagnostic) Other, see comments 016 Almonds food. [...] Type Department Care Team Description 09/03/2024 E-Visit [facility] [address] End[address] [place] [address] Albertot, Generic Provider 07/08/2024 Telephone [facility] [address] [place] [address] Darvin Grajeda MD QUESTIONS, GENERAL 07/07/2024 Telephone Physical Therapy at [address] [phone] Will Robertson, PT Other 07/07/2024 Telephone Physical Therapy at [address] [phone] Mark Workman, PT No Show 07/03/2024 1:00 PM INFORMATION SYSTEMS MANAGER Ancillary Procedure MRI at [address] [address] aDrvin Grajeda MD 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) 06/25/2024 Telephone Physical Therapy at [address] [phone] Mark Workman, PT No Show 06/23/2024 Telephone Physical Therapy at [address] [address] Irina Lewis, JEWELRY APPRAISER No Show 06/20/2024 1:30 PM INFORMATION SYSTEMS MANAGER Therapy Physical Therapy at [address] [phone] Will Robertson, PT Lumbar pain (Primary Dx); Pain in both lower extremities 06/20/2024 Telephone [facility] [address] [place] [address] Darvin Grajeda MD REFERRAL REQUEST 06/20/2024 Telephone Physical Therapy at [address] [phone] Will Robertson, PT Post Visit Follow Up Phone Call 06/18/2024 10:30 AM INFORMATION SYSTEMS MANAGER Therapy Physical Therapy at [facility] Orthopedic [place] [address] [place] [address] Mark Workman, PT Lumbar pain (Primary Dx); Pain in both lower extremities from Last 3 Months Immunizations Name Administration Dates Next Due Meningococcal ACWY-TT (Menquadfi) 05/08/2022 Bexsero (Meningococcal Group B Vaccine) 02/27/2023 DTaP 03/07/2010, 9,02/07/2006,05/05,03/10/2005,01/13/2005 [id number] (Pediarix) 12/03/2008,04/14,03/10/2005,01/13 Flu Vac (3+ yrs) 07/28/2005,05/26/2005 Flu Vac Preserv Free (3+yrs) 07/28/2005,05/26/20 05 [id number] 07/05/2009 HepA Adult (19+ yrs) 03/07/2010,12/03/2008 HepB Ped/Adol (0-18 yrs) 12/03/2008,04/14,03/10/2005,01/13 Hib (ActHIB) 02/07/2006,03/10/2005,01/13/2005 Hib (PedvaxHIB) 02/07/2006,03/10/2005,01/13/2005 IPV (Polio) 12/03/2008, 5,03/10/2005,01/13 Influenza IIV4 (Quadrivalent ) 0.5mL (25151) 07/05/2009 MCV4 (Menactra) 03/01/2016 MCV4 Menveo 2m.+ [...] 36.9 C (98.5 F) 09/20/2021 9:48 AM INFORMATION SYSTEMS MANAGER Respiratory Rate 22 03/13/2019 1:04 PM CDT Oxygen Saturation 99% 07/19/2016 10:10 AM INFORMATION SYSTEMS MANAGER Inhaled Oxygen Concentration - - Weight 70.3 kg (155 lb) 06/04/2024 1:41 PM CDT Height 165.1 cm (5' 5) 09/13/2021 9:46 AM INFORMATION SYSTEMS MANAGER Body Mass Index - - Plan of [...] WO IV CONT Routine 07/03/2024 1:04 PM INFORMATION SYSTEMS MANAGER 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) BASIC METABOLIC PANEL Routine 03/05/2024 8:55 AM CDT Type 1 diabetes mellitus without complication (HRC) HGB A1C Routine 03/05/2024 8:55 AM CDT Type 1 diabetes mellitus without complication (HRC) LIPID PANEL & DIRECT LDL (IF NEEDED) Routine 09/03/2020 8:22 AM INFORMATION SYSTEMS MANAGER Type I (juvenile type) diabetes mellitus without mention of complication, not stated as uncontrolled (HRC) from Last 3 Months or Most Recently Relevant to Health Maintenance Results * MR Lumbar Spine WO IV Cont (07/03/2024 1:04 PM INFORMATION SYSTEMS MANAGER) Anatomical Region Laterality Modality Spine, L-Spine, Skeletal, MSK Ma gnetic Resonance 07/03/2024 1:04 PM INFORMATION SYSTEMS MANAGER Narrative 07/04/2024 9:00 AM INFORMATION SYSTEMS MANAGER EXAM: MR LUMBAR SPINE WO IV CONT LOCATION: [facility] DATE: 07/03/2024 INDICATION: Back pain, worse after [...] MR LUMBAR SPINE WO IV CONT LOCATION: [facility] DATE: 07/03/2024 INDICATION: Back pain, worse after [...] contact suggested traversing right S1 nerve root [id number] image 37 could correlate to right S1 [...] 136 - 145 mmol/L 03/05/2024 11:48 AM [facility] Potassium 3.5 3.5 - 5.1 mmol/L 03/05/2024 11:48 AM [facility] Chloride 106 98 - 109 mmol/L 03/05/2024 11:48 AM [facility] CO2 23 20 - 29 mmol/L 03/05/2024 11:48 AM [facility] Anion Gap 12 6 - 16 mmol/L 03/05/2024 11:48 AM [facility] Calcium 9.4 8.4 - 10.4 mg/dL 03/05/2024 11:48 AM [facility] BUN 12 7 - 26 mg/dL 03/05/2024 11:48 AM [facility] Creatinine 0.67(L) 0.73 - 1.18 mg/dL 03/05/2024 11:48 AM [facility] Glucose 233(H) 70 - 100 mg/dL 03/05/2024 11:48 AM [facility] Comment:The given reference range is for the fasting state. Non-fasting reference range for glucose is 70 - 180 mg/dL. GFR, Estimated >60 >60 mL/min/1. 73m2 03/05/2024 11:48 AM [facility] Hours Fasting 0.0 8 - 12 Hours 03/05/2024 11:48 AM [facility] Blood Venipuncture / Unknown 03/05/2024 8:55 AM CDT 03/05/2024 8:55 AM T Darvin Grajeda MD LAB_ 1 [facility] [address] * (ABNORMAL) Hgb A1C (03/05/2024 8:55 AM T) Hemoglobin A1C 7.0(H) <=5.6 % 03/05/2024 12:10 PM [facility] Estimated Average Glucose (Calc) 154 < 117 mg/dL 03/05/2024 12:10 PM CDT [facility] Comment:Estimated average gl ucose (eAG) converts A1c into glucose units (mg/dL) and estimates average glucose over the past approximately 3 months. The eAG reference interval (<117 mg/dL) corresponds to an A1c of <5.7%. Blood Venipuncture / Unknown 03/05/2024 8:55 AM CDT 03/05/2024 8:55 AM CDT Narrative [facility] - 03/05/2024 12:10 PM CDT For patients not previously diagnosed with diabetes: 5.7-6.4%: Increased risk for diabetes 6.5% and greater: Diagnostic for diabetes For patients diagnosed with diabetes: <8.0%: Goal of therapy for ages 18-75 Clinicians may recommend a higher or lower goal for specific individuals. Darvin Grajeda MD LAB_ 1 [facility] [address] * (ABNORMAL) Lipid Panel and Direct LDL(If Needed) (09/03/2020 8:22 AM INFORMATION SYSTEMS MANAGER) Cholesterol 235(H) 0 - 199 mg/dL 09/03/2020 9:00 AM [facility] Triglyceride 162(H) <=149 mg/dL 09/03/2020 9:00 AM [facility] HDL Cholesterol 41 >=40 mg/dL 9:00 AM [facility] LDL, Calculated 162(H) <130 mg/dL 9:00 AM [facility] Non HDL Chol, Calculated 194(H) <=144 mg/dL 09/03/2020 9:00 AM [facility] Cholesterol/HDL Ratio 5.7 09/03/2020 9:00 AM [facility] Hours Fasting 14 09/03/2020 9:00 AM [facility] Blood Lab OP Venipunct ure / Unknown 09/03/2020 8:22 AM INFORMATION SYSTEMS MANAGER 09/03/2020 8:26 AM INFORMATION SYSTEMS MANAGER Darvin Grajeda MD LAB_ [address] [address], [facility] [phone] from Last 3 Months or Most Recently Relevant to Health Maintenance Care Teams Surgical Orderly Relationship Specialty Start Date End Date Darvin Grajeda MD [address] [place] [facility] [address] PCP - General Family Practice 06/15/14
--- OUTSIDE RECORDS SUMMARY | 2024-09-14 22:25 | XMS_ITS | Encounter Summary ---
Author Organization [facility] Address [address] [place] [address] Care Team Providers Care Collet Driller Name Role Phone Darvin Grajeda MD Primary Car e Provider Encounter Details Date Type Department Care Team (Late st Contact Info) Description 02/26/[address] 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
--- OUTSIDE RECORDS SUMMARY | 2024-09-14 22:25 | XMS_ITS | Encounter Summary ---
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
--- OUTSIDE RECORDS SUMMARY | 2024-09-14 22:25 | XMS_ITS | Encounter Summary ---
Author Organization [facility] Address [address] [place] [address] Care Team Providers Care Busboy Name Role Phone Darvin Grajeda MD Primary Car e Provider Encounter Details Date Type Department Care Team (Late st Contact Info) Description 09/03/2024 E-Visit [place] [address] Endocrinology [facility] [place] [address] Mychart, [place] [address] Social History Tobacco Use Types Packs/Day Years [...] on filedocumented in this encounter Care Teams Busboy Relationship Specialty Start Date End Date Darvin Grajeda MD [address] [place] [address] PCP - General Family Practice 06/15/14 documented as of this encounter
--- OUTSIDE RECORDS SUMMARY | 2024-09-14 22:25 | XMS_ITS | Encounter Summary ---
Author Organization [facility] Address [address] [place] [address] Care Team Providers Care Sap Crm Developer Name Role Phone Darvin Grjaeda MD Primary Car e Provider Encounter Details Date Type Department Care Team (Late st Contact Info) Description 04/28/2014 Scanned History External to 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
--- OUTSIDE RECORDS SUMMARY | 2024-09-14 22:25 | XMS_ITS | Clinical Summary ---
Author Organization [facility] Address [place], [place] [address] Care Team Providers Care Refinery Operator Name Role Phone Clinic, No Pcp Or Primary Care Provider Unavaila ble Allergies Active Allergy Reactions Criticality Noted Date Comments Woodruff Other - Describe In Comment Field Unknown [...] Department Care Team Description 07/08/2024 1:30 PM CITRUS PEELER Office Visit [facility] [address] [place] [address] Iveth Prince [facility] Visit 07/08/2024 [...] patient's age to complete this topic Insurance [facility] [facility] Member Subscriber Plan / Payer (Ef fective 2024-Present) Name:Osei Hartman Member ID:[id number] Relation to Subscriber:Self Name:Osei Hartman Subscriber ID:[id number] Payer ID:Not on file Group ID:Not on file Type:Not on file Address: FOR [facility] INTERNAL TRACKING [employer] [employer] [facility] Care Teams Refinery Operator Relationship Specialty Start Date End Date Clinic, No Pcp Or . PCP - General 05/14/24
--- OUTSIDE RECORDS SUMMARY | 2024-09-14 22:25 | XMS_ITS | Encounter Summary ---
Author Organization [facility] Address [address] [place] [address] Care Team Providers Care Can Sealer Name Role Phone Darvin Grajeda MD Primary Car e Provider Encounter Details Date Type Department Care Team (Late st Contact Info) Description 02/07/2013 Scanned History External to Transferred Record, Provider [facility] Social History Tobacco Use Types Packs/Day Years Used Date Smoking Tobacco: Never Assessed Sex and Gender Information Value Date Recorded Sex Assigned at Not on file Gender Identity Not on file Sexual Orientation Not on file documented as of this encounter Progress Notes * Transferred Record, Provider - 02/07/2013 12:00 AM CDT ORMANCE ANALYST documented in this encounter Plan of Treatment Not on file documented as of this encounter Visit Diagnoses Not on filedocumented in this encounter Additional Health Concerns Infection Onset Date Last Indicated Resolved Time COVID19 07/06/2020 07/06/2020 07/27/2020 3:17 AM PERFORMANCE ANALYST R/O COVID19 06/13/2021 06/13/2021 06/13/2021 9:27 PM CDT documented as of this encounter Care Teams Can Sealer Relationship Specialty Start Date End Date Darvin Grajeda MD [address] [place] [facility] [address] PCP - General Family Practice 06/15/14 documented as of this encounter
--- OUTSIDE RECORDS SUMMARY | 2024-09-14 22:25 | XMS_ITS | Encounter Summary ---
Author Organization [facility] Address [address] [place] [address] Care Team Providers Care Tech Intern Name Role Phone Darvin Grajeda MD Primary Car e Provider Encounter Details Date Type Department Care Team (Late st Contact Info) Description 06/17/2014 Correspondence None No Primary/Referring, Phy EQUIPMENT HORSE RACING MANAGER TICKET Social History Tobacco Use Types [...] Time COVID19 07/06/2020 07/06/2020 07/27/2020 3:17 AM PNEUMATIC TUBE FITTER R/O COVID19 06/13/2021 06/13/2021 06/13/2021 9:27 PM CDT documented as of this encounter Care Teams Tech Intern Relationship Specialty Start Date End Date Darvin Grajeda MD [address] [place] [address] PCP - General Family Practice 06/15/14 documented as of this encounter
--- OUTSIDE RECORDS SUMMARY | 2024-09-14 22:25 | XMS_ITS | Encounter Summary ---
Author Organization [facility] Address [address] [place] [address] Care Team Providers Care Auditing Control Clerk Name Role Phone Darvin Grajeda MD Primary Car e Provider Encounter Details Date Type Department Care Team (Late st Contact Info) Description 06/17/2014 Correspondence [facility] [address] [place] [address] Darvin Grajeda MD [address] [place] [address] DME INSTRUCTION DELIVERY Social History Tobacco Use [...] Time COVID19 07/06/2020 07/06/2020 07/27/2020 3:17 AM FARM HAND R/O COVID19 06/13/2021 06/13/2021 06/13/2021 9:27 PM CDT documented as of this encounter Care Teams Auditing Control Clerk Relationship Specialty Start Date End Date Darvin Grajeda MD [address] [place] [facility] [address] PCP - General Family Practice 06/15/14 documented as of this encounter
== END 2024-09-14 22:58 | disposition home or self-care (01) ==
PROVIDERS: Emergency Provider Family Medicine; PCP Family Medicine
DX: S09.90XA Unspecified injury of head, initial encounter (principal); V49.9XXA Car occupant (driver) (passenger) injured in unspecified traffic accident, initial encounter
CPT/HCPCS: 70450; 99283; 99284